=== PATIENT | female | born 1990 | race African-American/Black ===

== ENCOUNTER 2020-10-15 04:40 | Emergency (ER) | payer OTHER, SELFPAY ==
[2020-10-15 04:45] VITALS: BP 166/112; PULSE 91; RESP 20; TEMP 36.5; O2SAT 95
--- NOTE | 2020-10-15 05:13 | ED.FEMALEGU ---
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 Patient states normally her periods are very consistent, lasting 6 to 7 days. Patient states that she has been bleeding more days than not for the last month. She notes that she is going through 3-4 tampons or pads per day. Patient states that maybe 10 days or so of the bleeding she has had very heavy bleeding. She denies any injuries or trauma. Patient denies any changes in control or other medications. Related Data Home Medications Medication Instructions Recorded Confirmed No Home Medications 09/03/19 09/03/19 Allergies Allergy/AdvReac Type Severity Reaction Status Date / Time No Known Allergies Allergy Verified 10/15/20 04:48 Review of Systems Review of Systems: Narrative: CONSTITUTIONAL: Denies fever, chills, or sweats. EYES: Denies visual changes, redness, or discharge. ENT: Denies rhinorrhea, congestion, sore throat, or otalgia. CARDIOVASCULAR: Denies chest pain, palpitations, or edema. RESPIRATORY: Denies cough or dyspnea. GASTROINTESTINAL: Denies abdominal pain, nausea, vomiting, or diarrhea. GENITOURINARY: Denies dysuria or hematuria. Endorses vaginal bleeding. SKIN: Denies rash or itching. MUSCULOSKELETAL: Denies back pain, joint pain, or myalgia. NEUROLOGIC: Denies headache, numbness, dizziness, or weakness. PSYCHIATRIC: Denies anxiety or depression. [facility] Past Medical History Medical History (Updated 10/15/20 @ 06:18 by Ghanshyam Crouch DO) Allergic rhinitis Elevated BP without diagnosis of hypertension Family History Family History Father Diabetes mellitus Hypertension Grandparent Hypertension Diabetes mellitus Social History Social History Smoking status: Never smoker Second hand tobacco smoke exposure: No Alcohol intake: current Drinks per week: 1 Substance use: never Substance use type: does not use Gender identity (if verbalized by the patient): Female Spiritual care concerns: No Agree to blood products: Yes Exam Narrative: Exam Narrative: GENERAL: Well-appearing, well-nourished, and in no acute distress. HEAD: Normocephalic, atraumatic. EYES: PERRLA and EOMI. ENT: Nares clear, no rhinorrhea or epistaxis. Mucous membranes moist. Oropharynx without tonsillar hypertrophy exudate or other lesions. Bilateral TMs pearly allred nonbulging NECK: Supple. No adenopathy or masses. No carotid bruits or JVD CHEST: Clear to auscultation. No respiratory distress. No wheezes rales or rhonchi HEART: Regular rate and rhythm. No murmur heard. Normal peripheral pulses. ABDOMEN: Soft, nontender, nondistended, normal active bowel sounds. EXTREMITIES: Normal range of motion. No edema. SKIN: Warm, dry, no rash. NEURO: No focal deficits. Alert and oriented x3. PSYCH: Normal mood and affect. Course Vital Signs Vital signs: Vital Signs Temperature 36.5 C 10/15/20 04:45 Pulse Rate 91 10/15/20 04:45 Respiratory Rate 20 10/15/20 04:45 Blood Pressure 166/112 H 10/15/20 04:45 Pulse Oximetry 95 10/15/20 04:45 Temperature 36.5 C 10/15/20 04:45 Pulse Rate 91 10/15/20 04:45 Respiratory Rate 20 10/15/20 04:45 Blood Pressure 166/112 H 10/15/20 04:45 Pulse Oximetry 95 10/15/20 04:45 MDM - Female Genitourinary MDM Narrative Medical decision making narrative: In brief this 30-year-old female came into the emergency department with complaints of vaginal bleeding x1 month. Patient's vital signs were reviewed and reassuring. She is a little hypertensive. Address this
[2020-10-15 05:25] LABS: Basophils Absolute Auto 0.1 K/mm3 (0.0-0.1); Basophils Percent Auto 0.6 % (0.2-1.2); Eosinophils Absolute Auto 0.4 K/mm3 (0-0.3); Eosinophils Percent Auto 4.4 % (0-4.4); Hemoglobin 11.3 g/dL (12.0-15.0); Immature Granulocyte Absolute 0.03 K/mm3 (0.00-0.031); Immature Granulocyte Percent A 0.3 % (0-0.5); Lymphocytes Absolute Auto 2.78 K/mm3 (0.9-3.2); Lymphocytes Percent Auto 28.1 % (18.3-44.2); Mean Corpuscular HGB Conc 32.3 g/dl (32-36); Mean Corpuscular Hemoglobin 26.1 pg (26-34); Mean Corpuscular Volume 80.8 fl (80-100); Mean Platelet Volume 9.2 fl (7.4-10.4); Monocytes Absolute Auto 0.6 K/mm3 (0.1-0.6); Neutrophils Percent Auto 60.6 % (45.5-73.1); Platelet Count Result 343 k/mm3 (150-375); Red Blood Count 4.33 M/mm3 (4.2-5.4); Red Cell Distribution Width 14.3 % (11.5-14.5); White Blood Count 9.9 K/mm3 (4.5-10.0)
[2020-10-15 05:57] LABS: Anion Gap 7 mmol/L (8-16); Blood Urea Nitrogen 15 mg/dL (7-17); Calcium 8.8 mg/dL (8.4-10.2); Carbon Dioxide 26 mmol/L (22-30); Chloride 103 mmol/L (98-107); Estimated Glomerular Filt Rate > 60; Glucose 308 mg/dL (65-105); Potassium 4.3 mmol/L (3.4-5.0); Sodium 136 mmol/L (137-145)
[2020-10-15 06:05] LABS: Beta HCG Quantitative < 2.39 mIU/ML
== END 2020-10-15 06:24 | disposition home or self-care (01) ==
PROVIDERS: Emergency Provider Emergency Medicine; PCP Family Medicine
DX: N93.9 Abnormal uterine and vaginal bleeding, unspecified (principal); R03.0 Elevated blood-pressure reading, without diagnosis of hypertension
CPT/HCPCS: 36415; 80048; 84702; 85025; 99283

== ENCOUNTER 2021-01-12 14:17 | Outpatient (CLI) | payer OTHER, SELFPAY ==
[2021-01-12 15:12] LABS: Anion Gap 6 mmol/L (8-16); Blood Urea Nitrogen 13 mg/dL (7-17); Calcium 8.8 mg/dL (8.4-10.2); Carbon Dioxide 28 mmol/L (22-30); Chloride 108 mmol/L (98-107); Estimated Glomerular Filt Rate > 60; Glucose 106 mg/dL (65-105); Potassium 4.3 mmol/L (3.4-5.0); Sodium 142 mmol/L (137-145)
== END 2021-01-12 14:18 | disposition home or self-care (01) ==
LOC: ANHSURGERY 14:20
PROVIDERS: Anesthesiology; PCP Family Medicine; Visit Provider Obstetrics & Gynecology
DX: Z01.812 Encounter for preprocedural laboratory examination (principal); E11.9 Type 2 diabetes mellitus without complications
CPT/HCPCS: 36415; 80048

== ENCOUNTER → 2021-01-16 03:31 | Outpatient (CLI) | payer OTHER, SELFPAY ==
[2021-01-16 19:46] LABS: SARS-CoV-2 RNA PCR Negative
== END ==
PROVIDERS: PCP Family Medicine; Visit Provider Obstetrics & Gynecology
DX: Z01.812 Encounter for preprocedural laboratory examination (principal); Z20.822 Contact with and (suspected) exposure to COVID-19
CPT/HCPCS: C9803; U0003; U0005

== ENCOUNTER 2021-01-20 01:21 | Day surgery (SDC) | payer OTHER, SELFPAY ==
[2021-01-11 14:26] VITALS: BMI 55.9
[2021-01-20] VITALS (7 sets, daily range): BP systolic 128–148; BP diastolic 91–109; PULSE 86–102; RESP 14–24; TEMP 36.1–36.6; O2SAT 99–100
--- NOTE | 2021-01-20 06:27 | P.PNAN_ITS ---
Anes - Initial Pre Proc Eval Procedure: Operation Date: 01/20/21 07:30 Proposed Procedures p Hysteroscopy Dilation and Curettage - Hope Pacheco MD Date/Time: 01/20/21 06:27 Surgeon: Hope Pacheco MD Pre Op Diagnosis: abnormal uterine bleeding Patient Data Age: 30 Gender: F Height: 5 ft 7 in Weight: 162 kg Allergies Allergy/AdvReac Type Severity Reaction Status Date / Time No Known Allergies Allergy Verified 01/11/21 14:08 Home Medications Medication Instructions Recorded Confirmed Type sitagliptin 100 mg-metformin ER 1 tablet PO DAILY #90 tablet 12/08/20 01/11/21 Rx 1,000 mg tablet,extended [id number] mp diphenhydramine HCl [Benadryl] 25 mg PO Q6H PRN 01/11/21 01/11/21 History Patient hx anesthesia problems: none Family hx anesthesia problems: none [facility] Past Medical History Medical History Allergic rhinitis Diabetes Elevated BP without diagnosis of hypertension Family History Family History Father Diabetes mellitus Hypertension Grandparent Hypertension Diabetes mellitus Social History Social History Smoking status: Never smoker Second hand tobacco smoke exposure: No Alcohol intake: current Drinks per week: 1 Substance use: never Substance use type: does not use Living arrangements: with family Gender identity (if verbalized by the patient): Female Spiritual care concerns: No Agree to blood products: Yes Anes - Eval Final PreProcedure Day of Procedure 01/20/21 06:27 Patient weight: morbidly obese Heart: regular rate and rhythm Lungs: clear to auscultation Airway: Mallampati scale class 1 Neurological: alert and oriented Last oral intake: >/= 8 hours ASA classification: III Emergent: no Anesthetic plan: proceed Anesthesia type and monitoring: general GIVS and standard monitoring Informed Consent: The patient's anesthetic plan and its attendant risks and benefits were discussed with the patient/family/POA. Questions were solicited and answers provided to the satisfaction of the patient/family/POA.
[2021-01-20] MEDS: ACETAMINOPHEN 500 MG TABLET 1000 MG PO (06:45)
[2021-01-20] MEDS: LACTATED RINGERS 1,000 ML 30 ML IV CONT (06:46)
[2021-01-20 06:55] LABS: Glucose Point of Care 98 mg/dl (65-105)
--- NOTE | 2021-01-20 07:15 | WPDHPUPDATE1 ---
History and Physical Update Update Date/Time: 01/20/21 07:15 History and Physical has been reviewed, including an updated exam of the patient. There are NO changes in the patient's condition. Risks, benefits, and alternatives have been discussed and questions answered. Patient agrees to proceed with procedure.
--- NOTE | 2021-01-20 07:22 | PM.IMHP ---
H&P: HPI History of Present Illness Date/Time: 01/20/21 07:22 this patient is a 30-year-old female with longstanding anovulatory bleeding. She needs endometrial sampling. We have agreed to perform hysteroscopy D&C. I have explained the procedure to the patient in detail. She understands there is risk. She understands that injuries may occur that result in hospitalization, more surgery, severe illness. She understands there is risk of hemorrhage and infection. Chief Complaint: Vaginal bleeding Review of Systems Constitutional: Constitutional: Reports no additional constitutional complaints, Denies fatigue, Denies headache(s), Denies lethargy and Denies weakness Eyes: Eyes: Reports no additional eye complaints, Denies blurry vision and Denies photophobia ENT: Reports as per HPI, Denies headache(s) and Denies neck pain Cardiovascular: Cardiovascular: Denies chest pain, Denies diaphoresis, Denies leg edema, Denies palpitations and Denies dyspnea Respiratory: Respiratory: Denies hemoptysis, Denies dyspnea and Denies wheezing Gastrointestinal: Gastrointestinal: Denies abdominal pain, Denies melena, Denies bloating, Denies hematochezia, Denies nausea and Denies vomiting Genitourinary: Genitourinary: Reports no additional female genitourinary complaints Musculoskeletal: Musculoskeletal: Denies joint swelling, Denies neck pain, Denies numbness and Denies stiffness Neurologic: Denies Abnormal speech present, Denies confusion, Denies headache(s), Denies numbness and Denies weakness Psychiatric: Psychiatric: Denies anxiety, Denies confusion, Denies depression, Denies homicidal ideation and Denies suicidal ideation Endocrine: Endocrine: Denies fatigue and Denies palpitations Allergic/Immunologic: Allergic/Immunologic: Denies wheezing PMF Past Medical History Medical History Allergic rhinitis Diabetes Elevated BP without diagnosis of hypertension Family History Family History Father Diabetes mellitus Hypertension Grandparent Hypertension Diabetes mellitus Social History Social History Smoking status: Never smoker Second hand tobacco smoke exposure: No Alcohol intake: current Drinks per week: 1 Substance use: never Substance use type: does not use Living arrangements: with family Gender identity (if verbalized by the patient): Female Spiritual care concerns: No Agree to blood products: Yes Meds Home Medications and Allergies Home Medications Medication Instructions Recorded Confirmed Type sitagliptin 100 mg-metformin ER 1 tablet PO DAILY #90 tablet 12/08/20 01/11/21 Rx 1,000 mg tablet,extended [id number] mp diphenhydramine HCl [Benadryl] 25 mg PO Q6H PRN 01/11/21 01/11/21 History Allergies Allergy/AdvReac Type Severity Reaction Status Date / Time No Known Allergies Allergy Verified 01/11/21 14:08 Exam Const: General: healthy appearing, comfortable and no acute distress; No confusion Orientation/consciousness: No confusion Eyes: Direct Ophthalmoscopy: No photophobia Resp: Auscultation: clear to auscultation bilaterally, no rales, no rhonchi and no wheezes Cardio: Rate: regular rate Heart sounds: no click, no murmurs and no rubs GI: Inspection: non-distended GI Palp: No abdominal tenderness Auscultation: normal bowel sounds Neuro: General: No confusion Speech: No Abnormal speech present Extrem: General: normal to inspection, no pedal edema and no calf tenderness Assessment and Plan Assessment and plan (1) Abnormal uterine bleeding: Code(s): N93.9 - Abnormal uterine and vaginal bleeding, unspecified Status: Acute Assessment and Plan: This patient is a 30-year-old female with longstanding abnormal uterine bleeding who needs endometrial sampling. We have agreed to perform hyste
--- NOTE | 2021-01-20 08:26 | PM.PROC ---
Procedure Note - Detailed Date of procedure: 01/20/21 Pre-op diagnosis: abnormal uterine bleeding Abnormal uterine bleeding Post-op diagnosis: same Procedure performed: Hysteroscopy D&C Description of procedure: The patient was taken the operating room. She was prepped and draped in the dorsal lithotomy position after induction of mac anesthesia. A speculum was placed in the vagina. The cervix grasped with a tenaculum. The cervix was injected at 3 and 9:00 a.m. with 1% lidocaine. Cervix was dilated up to 1 cm. The hysteroscope was inserted the intrauterine cavity and the above findings were noted. A medium-size curette was then used to curettage all surfaces within the endometrial cavity. The endometrial curettings were collected on a Telfa. There were submitted to the pathology department. Hysteroscope was reinserted the intrauterine cavity to re-examine the endometrial surfaces. The hysteroscope was withdrawn. The tenaculum was removed. The speculum was removed. The patient tolerated the procedure well. She was taken recovery room stable condition. Sponge lap needle counts were correct x2. Anesthesia: MAC Surgeon: Hope Pacheco MD Estimated blood loss (mL): 75 Drains: No Packing: No Pathology: yes Complications: No immediate complications Condition: stable Disposition: PACU Findings: There was marked thickening of the endometrium. There was normal appearing vulva vagina and cervix.
[2021-01-20 08:32] LABS: Glucose Point of Care 115 mg/dl (65-105)
== END 2021-01-20 09:35 | disposition home or self-care (01) ==
PROVIDERS: PCP Family Medicine; Visit Provider Obstetrics & Gynecology
PROC: 0U5B8ZZ Destruction of Endometrium, Via Natural or Artificial Opening Endoscopic (ICD-10-PCS; CPT 58563; principal; 2021-01-20 07:30)
DX: N93.9 Abnormal uterine and vaginal bleeding, unspecified (principal); N84.0 Polyp of corpus uteri; E11.9 Type 2 diabetes mellitus without complications; Z79.84 Long term (current) use of oral hypoglycemic drugs; E66.01 Morbid (severe) obesity due to excess calories; Z68.43 Body mass index [BMI] 50.0-59.9, adult
CPT/HCPCS: 58558; 36415; 80048; 82948; 88305; A9270; C9803; J1100; J2250; J2405; J2704; J3010; J7030; J7120; U0003; U0005

== ENCOUNTER 2022-06-01 09:09 | Observation (INO) | payer OTHER, SELFPAY ==
[2022-06-01] VITALS (16 sets, daily range): BP systolic 137–190; BP diastolic 53–115; PULSE 90–109; RESP 14–20; TEMP 35.6–37; O2SAT 98–100
--- NOTE | ~2022-06-01 | US_ITS ---
EXAMINATION: US transvaginal DATE: 06/01/2022 16:36 INDICATION: Vaginal bleeding TECHNIQUE: Multiple endovaginal sonographic images of the pelvis were obtained. COMPARISON: None. FINDINGS: The uterus measures 13.2 x 8.1 x 11.1 cm. There is a 6.5 x 5.8 x 6.2 cm mass of the uterus with the appearance of an intramural fibroid. The endometrial complex measures 5 mm. The ovaries are not visualized however no adnexal abnormality is seen. There is no free fluid in the pelvis. IMPRESSION: 1. 6.5 cm uterine fibroid. Reviewed, dictated and finalized at location A. IMPRESSION: 1. 6.5 cm uterine fibroid.
[2022-06-01 09:34] LABS: Hematocrit 24.9 % (37.0-47.0); Mean Corpuscular HGB Conc 25.3 g/dl (32-36); Mean Corpuscular Hemoglobin 14.1 pg (26-34); Mean Corpuscular Volume 55.6 fl (80-100); Mean Platelet Volume 7.9 fl (7.4-10.4); Platelet Count Result 447 k/mm3 (150-375); Red Blood Count 4.48 M/mm3 (4.2-5.4); Red Cell Distribution Width 22.4 % (11.5-14.5); White Blood Count 8.3 K/mm3 (4.5-10.0)
[2022-06-01 09:37] LABS: Hemoglobin 6.3 g/dL (12.0-15.0)
[2022-06-01 09:46] LABS: Partial Thromboplastin Time 26.4 SECONDS (22.3-36.8)
[2022-06-01 09:52] LABS: Alanine Aminotransferase 13 U/L (6-35); Albumin Level 4.1 g/dL (3.5-5.1); Alkaline Phosphatase 78 U/L (38-126); Anion Gap 11 mmol/L (8-16); Aspartate Amino Transferase 31 U/L (14-36); Bilirubin,Total 0.3 mg/dL (0.2-1.3); Blood Urea Nitrogen 12 mg/dL (7-17); Calcium 8.9 mg/dL (8.4-10.2); Carbon Dioxide 21 mmol/L (22-30); Chloride 106 mmol/L (98-107); Estimated CRCL calculation 156 ml/min; Estimated Glomerular Filt Rate > 60; Glucose 143 mg/dL (65-110); Potassium 4.5 mmol/L (3.4-5.0); Sodium 138 mmol/L (137-145)
--- NOTE | 2022-06-01 09:59 | ED.RECABL ---
HPI - Recheck/Abnormal Lab/Rx General Chief Complaint: Recheck/Abnormal Lab/Rx Stated Complaint: low hgb 6.0 - labs drawn yesterday Time Seen by Provider: 06/01/22 09:14 Source: patient and RN notes reviewed Mode of arrival: ambulatory Limitations: no limitations History of Present Illness HPI narrative: This is a 32 year old female with history of Diabetes mellitus who presents for evaluation of a low hemoglobin. Patient had routine labs drawn yesterday to evaluate her diabetes, and she was told today her hemoglobin was 6. She denies history of anemia or blood transfusion. She has irregular menstrual cycle and she denies heavy vaginal bleeding. She denies chest pain, sob, dizziness, fatigue or weakness. Related Data Allergies Allergy/AdvReac Type Severity Reaction Status Date / Time No Known Allergies Allergy Verified 06/01/22 14:39 Review of Systems Review of Systems: All systems reviewed & are unremarkable except as noted in HPI and below Constitutional: Constitutional: Denies chills, Denies fatigue, Denies fever(s) and Denies weakness Cardiovascular: Cardiovascular: Denies chest pain and Denies rapid heart rate Respiratory: Respiratory: Denies cough Gastrointestinal: Gastrointestinal: Denies abdominal pain, Denies bloating, Denies constipation and Denies heartburn [facility] Past Medical History Medical History Allergic rhinitis Diabetes Elevated BP without diagnosis of hypertension History of PCOS Menorrhagia with regular cycle Uterine fibroid Surgical History Surgical History H/O cervical biopsy H/O dilation and curettage Family History Family History Father Diabetes mellitus Hypertension Grandparent Hypertension Diabetes mellitus Social History Social History (Updated 06/01/22 @ 16:00 by Pham Strickland NP) Social History: The patient is and lives with her . They have no children. She denies any alcohol marijuana or illicit drugs. Her is a durable power consumer attorney for healthcare. She works for [employer]. Code status full code Smoking status: Never smoker Second hand tobacco smoke exposure: No Alcohol intake: current Drinks per week: 1 Alcohol use details: wine Substance use: never Substance use type: does not use Gender identity (if verbalized by the patient): Female Sexual Orientation (if Verbalized by the Patient): Straight or Heterosexual Spiritual care concerns: No Agree to blood products: Yes Exam Const: General: no acute distress and alert Nutritional Appearance: well nourished and obese Orientation/consciousness: patient oriented x3 HENMT: Head: normal to inspection Neck: Neck: normal visual inspection Chest: Chest palpation & inspection: normal inspection of the chest Resp: Effort & Inspection: normal respiratory effort Auscultation: clear to auscultation bilaterally Cardio: Rate: regular rate Rhythm: regular rhythm Heart sounds: no murmurs GI: GI Palp: Yes Soft to palpation, No Tenderness to palpation present (GI), No Guarding due to palpation present (GI) and No Rigid due to palpation Auscultation: normal bowel sounds Skin: General skin exam: normal color Rashes: no rashes Wounds: no wounds Neuro: General: patient oriented x3, moves all extremities and CN's II-XI intact bilaterally Cranial nerves: Yes Nystagmus not present Extrem: General: normal to inspection Psych: Mental Status: mental status grossly normal Affect: normal affect Attitude: cooperative Course Reevaluation(s) Reevaluation #1: Patient found to have severe anemia. She is not symptomatic and she is not on her cycle right now. She will likely start in a few days. Will admit for transfusion . I have discussed with DR. Thakkar who accepts patient to service. Date:
[2022-06-01 10:13] LABS: Iron 20 ug/dL (37-170)
[2022-06-01 10:15] LABS: Anisocytosis 2+ (NORMAL); Lymphocytes Absolute Manual 2.07 K/mm3 (1.1-4.5); Monocytes Absolute Manual 0.33 K/mm3 (0.1-0.90); Monocytes Percent Manual 4 % (3-9); Neutrophils Percent Manual 71 % (46-73); Ovalocytes 2+ (NORMAL); Platelet Estimate Adequate (Adequate); Tear Drop Cells 1+ (NORMAL); Total Cells Counted 100
[2022-06-01 10:16] LABS: Hypochromasia 3+ (NORMAL)
[2022-06-01 10:17] LABS: Poikilocytosis 1+ (NORMAL); Schistocytes None Seen (NORMAL)
[2022-06-01 10:22] LABS: Percent Iron Saturation 4 % (20-50)
[2022-06-01 10:57] LABS: Folic Acid 6.7 ng/mL (2.76->20)
[2022-06-01] MEDS: SODIUM CHLORIDE 0.9% IV 250 ML 30 ML IV CONT ×2 (12:06→22:29)
[2022-06-01] MEDS: TUBING, BLOOD PLUM PUMP TUBING 1 EACH XX (13:16)
--- NOTE | 2022-06-01 13:51 | PM.IMHP ---
H&P: HPI History of Present Illness Date/Time: 06/01/22 13:51 Chief Complaint: Low labs low hemoglobin Narrative: This is a 32-year-old female patient with a history of PCOS and diabetes. The patient has a history of having heavy menses and sees Dr. Pacheco for her OBGYN. Patient had routine labs drawn yesterday to evaluate her diabetes and was told that her hemoglobin was 6 yesterday. She denies any anemia or blood transfusion the past she has irregular menstrual cycle and has had a D&C in the past. She has also had some uterine fibroids. She has also had uterine polyps in the past. She denies any shortness of breath or heavy bleeding at this time. Her last menses was 32 days ago. She has not taken a test. She has not noticed any blood in her stool. Her H&H is 6.3 and 24.9. MCV is 55.6. MCH is 15.1. MCHC is 25.3. RDW is 22.4. Platelet count is 447. Accu-Chek 143. TIBC 522. Percentage of saturation was 4. 1 unit of packed red blood cells was ordered for the patient. The patient is being admitted for observation status on 06/01/2022. Review of Systems Review of Systems: See HPI All systems reviewed & are unremarkable except as noted in HPI and below Constitutional: Constitutional: Reports as per HPI and Reports no additional constitutional complaints Eyes: Eyes: Reports as per HPI and Reports no additional eye complaints ENT: Reports system reviewed and no additional complaints, except as documented and Reports Normal hearing present Cardiovascular: Cardiovascular: Reports no additional cardiovascular complaints Respiratory: Respiratory: Reports no additional respiratory complaints and Reports no additional respiratory complaints Gastrointestinal: Gastrointestinal: Reports as per HPI and Reports no additional gastrointestinal complaints Musculoskeletal: Musculoskeletal: Reports no additional musculoskeletal complaints Integumentary/Breasts: Skin/Breast: Reports system reviewed and no additional complaints, except as docu and Reports as per HPI Neurologic: Reports system reviewed and no additional complaints, except as documented, Reports as per HPI and Reports Normal hearing present Psychiatric: Psychiatric: Reports no additional psychiatric complaints and Reports as per HPI Endocrine: Endocrine: Reports no additional endocrine complaints Hematologic/Lymphatic: Hematologic/Lymphatic: Reports no additional hematologic/lymphatic complaints Allergic/Immunologic: Allergic/Immunologic: Reports no additional allergic/immunologic complaints [facility] Past Medical History Medical History Allergic rhinitis Diabetes Elevated BP without diagnosis of hypertension History of PCOS Menorrhagia with regular cycle Uterine fibroid Surgical History Surgical History H/O cervical biopsy H/O dilation and curettage Family History Family History Father Diabetes mellitus Hypertension Grandparent Hypertension Diabetes mellitus Social History Social History (Updated 06/01/22 @ 16:00 by Pham Strickland NP) Social History: The patient is and lives with her . They have no children. She denies any alcohol marijuana or illicit drugs. Her is a durable power city attorney for healthcare. She works for [employer]. Code status full code Smoking status: Never smoker Second hand tobacco smoke exposure: No Alcohol intake: current Drinks per week: 1 Alcohol use details: wine Substance use: never Substance use type: does not use Gender identity (if verbalized by the patient): Female Sexual Orientation (if Verbalized by the Patient): Straight or Heterosexual Spiritual care concerns: No Agree to blood products: Yes Meds Home Medications and Allergies Home Medications Medication Instructions Recorde
--- NOTE | 2022-06-01 14:38 | ADMGEN ---
This patient, Rosemary Corado, was admitted to [facility] Surg Room 301-01. Patient/family oriented to hospital policies and general routines including ID bracelet, bed and alarms, visiting hours, pain management, procedures, bathroom and other care routines, personal items, smoking policy, room service/diet, and visiting hours. Information on how to activate the Rapid Response Team has been discussed. Patient/Family are encouraged to report perceived risks to care and to ask questions if they do not understand what they are told or what they should do.
[2022-06-01 16:46] LABS: Glucose Point of Care 119 mg/dl (65-105)
[2022-06-01 17:06] LABS: Hemoglobin 6.9 g/dL (12.0-15.0)
[2022-06-01] MEDS: POLYSACCHARIDE IRON COMPLEX 150 MG CAPSULE PO (17:45)
[2022-06-01] MEDS: IRON SUCROSE COMPLEX 100 MG in SODIUM CHLORIDE 0.9% IV 50 ML 220 MG IVPB (17:46)
--- NOTE | 2022-06-01 18:14 | PHAR ---
PT'S HOME MED JANUMET XR 100/1000 MG VERIFIED BY PHARMACY
[2022-06-01 18:49] LABS: Pregnancy On Board Control Positive; Urine Pregnancy Test Negative
[2022-06-01 20:55] LABS: Glucose Point of Care 112 mg/dl (65-105)
[2022-06-01 22:21] LABS: Hematocrit 26.9 % (37.0-47.0); Hemoglobin 7.2 g/dL (12.0-15.0)
[2022-06-02 00:33] VITALS: BP 148/92; PULSE 94; RESP 14; TEMP 36.2; O2SAT 98
[2022-06-02 01:09] VITALS: BP 148/92; PULSE 90; RESP 15; TEMP 36.3; O2SAT 99
[2022-06-02 06:00] VITALS: BP 132/87; PULSE 89; RESP 18; TEMP 35.8; O2SAT 100
[2022-06-02 06:43] LABS: Basophils Absolute Auto 0.1 K/mm3 (0.0-0.1); Basophils Percent Auto 0.7 % (0.2-1.2); Eosinophils Absolute Auto 0.2 K/mm3 (0-0.3); Eosinophils Percent Auto 2.4 % (0-4.4); Hematocrit 28.6 % (37.0-47.0); Hemoglobin 7.6 g/dL (12.0-15.0); Immature Granulocyte Absolute 0.03 K/mm3 (0.00-0.031); Immature Granulocyte Percent A 0.3 % (0-0.5); Lymphocytes Percent Auto 25.3 % (18.3-44.2); Mean Corpuscular HGB Conc 26.6 g/dl (32-36); Mean Corpuscular Hemoglobin 15.6 pg (26-34); Mean Corpuscular Volume 58.8 fl (80-100); Mean Platelet Volume 8.4 fl (7.4-10.4); Monocytes Absolute Auto 0.7 K/mm3 (0.1-0.6); Monocytes Percent Auto 7.8 % (2.6-8.5); Neutrophils Absolute Auto 5.8 K/mm3 (1.3-6.7); Neutrophils Percent Auto 63.5 % (45.5-73.1); Platelet Count Result 473 k/mm3 (150-375); Red Blood Count 4.86 M/mm3 (4.2-5.4); Red Cell Distribution Width 26.6 % (11.5-14.5); White Blood Count 9.1 K/mm3 (4.5-10.0)
[2022-06-02 07:12] LABS: Alanine Aminotransferase 12 U/L (6-35); Albumin Level 4.1 g/dL (3.5-5.1); Alkaline Phosphatase 71 U/L (38-126); Anion Gap 10 mmol/L (8-16); Bilirubin,Total 0.5 mg/dL (0.2-1.3); Blood Urea Nitrogen 13 mg/dL (7-17); Calcium 9.1 mg/dL (8.4-10.2); Carbon Dioxide 22 mmol/L (22-30); Chloride 106 mmol/L (98-107); Estimated CRCL calculation 136 ml/min; Estimated Glomerular Filt Rate > 60; Glucose 111 mg/dL (65-110); Potassium 4.5 mmol/L (3.4-5.0); Sodium 138 mmol/L (137-145)
[2022-06-02 07:17] LABS: Anisocytosis 1+ (NORMAL); Aspartate Amino Transferase 35 U/L (14-36); Hypochromasia 2+ (NORMAL); Polychromasia 1+ (NORMAL); Target Cells 1+ (NORMAL)
[2022-06-02 07:18] LABS: Ovalocytes 2+ (NORMAL); Schistocytes None Seen (NORMAL)
[2022-06-02 08:00] VITALS: PULSE 89; RESP 18; O2SAT 100
[2022-06-02 08:00] LABS: Glucose Point of Care 117 mg/dl (65-105)
[2022-06-02] MEDS: POLYSACCHARIDE IRON COMPLEX 150 MG CAPSULE PO (08:32)
[2022-06-02 08:55] LABS: Hemoglobin A1C 6.1 % (<5.7)
[2022-06-02 09:57] LABS: Immunochemical Fecal Occult Bl Negative (N)
[2022-06-02 09:58] LABS: IFOB Positive Control Positive
[2022-06-02 11:47] LABS: Glucose Point of Care 132 mg/dl (65-105)
[2022-06-02 12:49] LABS: Hematocrit 27.4 % (37.0-47.0); Hemoglobin 7.4 g/dL (12.0-15.0)
[2022-06-02 14:00] VITALS: BP 131/78; PULSE 86; RESP 18; TEMP 36.4; O2SAT 100
--- NOTE | 2022-06-02 14:33 | PM.DS ---
DS: Admitting Diagnosis Discharge Date 06/02/2022 Admitting Diagnosis Anemia DS: Discharge Diagnosis Discharge Diagnosis (1) Anemia: Code(s): D64.9 - Anemia, unspecified Status: Acute Assessment and Plan: Patient directed to ED after outpatient labs revealed hemoglobin of 6.0. Hemoglobin was 6.3 on presentation and patient received 2 units packed RBCs. H&H stabilized following transfusion. Also received IV iron infusion and will continue p.o. iron supplementation following discharge. Recheck H&H in 1 week with results to PCP. (2) Abnormal uterine bleeding: Code(s): N93.9 - Abnormal uterine and vaginal bleeding, unspecified Status: Acute Assessment and Plan: Patient reports heavy menstrual bleeding. She does have history of uterine fibroids and D&C. No active vaginal bleeding during admission. test negative. Transvaginal ultrasound shows 6.5 cm uterine fibroid. She will follow-up with her OBGYN Dr. Pacheco as an outpatient for further evaluation of fibroid and heavy menstrual bleeding (3) Diabetes: Code(s): E11.9 - Type 2 diabetes mellitus without complications Status: Acute Assessment and Plan: A1c is 6.1. Continue home janumet. DS: Summary Hospital Course Hospital Course: Date of admission: 06/01/2022 Date of discharge: 06/02/2022 Rosemary Corado is a 32-year-old female with a history of menorrhagia, uterine fibroid, PCOS, and type 2 diabetes mellitus who presented to the emergency department on 06/01/2022 at the instruction of her primary care provider when she was noted to have a hemoglobin of 6.0 on outpatient labs. On presentation to the ED, her vital signs were stable, hemoglobin 6.9, hematocrit 26.0, iron 20, TIBC 522, % saturation 4. She was admitted to the hospitalist service for further evaluation and management. Please see above for further details. She was transfused 2 units packed RBCs. H&H remained stable following transfusion. Patient does endorse heavy menstrual cycles which is the most likely etiology for her iron deficiency anemia. She did have a transvaginal ultrasound during admission which showed a uterine fibroid. She will follow-up with her delivery clerk regarding abnormal uterine bleeding as an outpatient. She is not vegetarian, but eats very little red meat or other iron rich foods. Stool was negative for occult blood. Patient denies any other bleeding including hematuria, melena, hematochezia, epistaxis. She was started on oral iron supplementation and given information regarding iron rich diet. She will have a repeat H&H as an outpatient in 1 week with results to PCP. She remained asymptomatic, she was feeling at her baseline state of health and was eager for discharge home. Given overall improvement, she was determined to no longer require inpatient care and was discharged in hemodynamically stable condition on 06/02/2022. Time Spent with Patient Time attestation: Total time spent providing and/or coordinating discharge services: 45 minutes Exam Narrative: General: Obese, well-appearing 32-year-old female, sitting up in bed, comfortable, NARD Neuro: awake, alert and oriented x4, speech clear, no focal neuro deficits noted HEENMT: normocephalic, atraumatic, EOMI, sclerae anicteric, moist oral mucosa Respiratory: clear to auscultation bilaterally, nonlabored breathing Cardio: regular rate, regular rhythm with S1-S2 Abdomen: nondistended, normoactive bowel sounds, soft, nontender to palpation Extremities: no edema, erythema, or tenderness to palpation Skin: no rashes or lesions, warm and dry Psych: appropriate mood and affect, judgment and insight intact DS: Data Data Completed and Pending Labs on day of discharge: Labs from last 24 hours 06/02/22 06/02/22 06/02/22 11:30 09:09 09:08 WBC RBC Hgb 7.4 L Hct 27.4 L MCV MCH MCHC RDW Plt Count MPV Immature Gran % (Auto)
== END 2022-06-02 15:20 | disposition home or self-care (01) ==
LOC: ANHED 09:26 → ANH3MEDSUR 17:40
PROVIDERS: Nurse Practitioner; Admitting Provider Family Medicine; Emergency Provider General Practice; PCP Physician Assistant Medical; Visit Provider Internal Medicine
DX: D64.9 Anemia, unspecified (principal); E11.9 Type 2 diabetes mellitus without complications; N93.9 Abnormal uterine and vaginal bleeding, unspecified; D25.1 Intramural leiomyoma of uterus; E66.9 Obesity, unspecified; Z68.43 Body mass index [BMI] 50.0-59.9, adult; F10.90 Alcohol use, unspecified, uncomplicated; Z79.84 Long term (current) use of oral hypoglycemic drugs
CPT/HCPCS: 36415; 36430; 76830; 80053; 81025; 82274; 82607; 82746; 82948; 83036; 83540; 83550; 85014; 85018; 85025; 85610; 85730; 86850; 86900; 86901; 86920; 96374; 99285; A9270; G0378; J1756; J7050; P9016

== ENCOUNTER 2022-06-16 13:36 | Outpatient (CLI) | payer OTHER, SELFPAY ==
[2022-06-16 13:53] LABS: Basophils Absolute Auto 0.1 K/mm3 (0.0-0.1); Basophils Percent Auto 0.8 % (0.2-1.2); Eosinophils Absolute Auto 0.3 K/mm3 (0-0.3); Eosinophils Percent Auto 3.8 % (0-4.4); Hematocrit 29.6 % (37.0-47.0); Immature Granulocyte Absolute 0.01 K/mm3 (0.00-0.031); Immature Granulocyte Percent A 0.2 % (0-0.5); Lymphocytes Absolute Auto 2.09 K/mm3 (0.9-3.2); Lymphocytes Percent Auto 31.4 % (18.3-44.2); Mean Platelet Volume 8.4 fl (7.4-10.4); Monocytes Absolute Auto 0.5 K/mm3 (0.1-0.6); Monocytes Percent Auto 7.7 % (2.6-8.5); Neutrophils Absolute Auto 3.8 K/mm3 (1.3-6.7); Neutrophils Percent Auto 56.1 % (45.5-73.1); Platelet Count Result 503 k/mm3 (150-375); Red Cell Distribution Width 30.5 % (11.5-14.5); White Blood Count 6.7 K/mm3 (4.5-10.0)
[2022-06-16 15:35] LABS: Anisocytosis 2+ (NORMAL)
[2022-06-16 15:42] LABS: Hypochromasia 2+ (NORMAL); Poikilocytosis 2+ (NORMAL); Schistocytes 1+ (NORMAL); Target Cells 1+ (NORMAL)
== END 2022-06-16 13:37 | disposition home or self-care (01) ==
LOC: ANHLAB 13:37
PROVIDERS: PCP Physician Assistant Medical; Visit Provider Physician Assistant
DX: D64.9 Anemia, unspecified (principal)
CPT/HCPCS: 36415; 85025

== ENCOUNTER 2023-01-19 09:48 | Outpatient (CLI) | payer OTHER, SELFPAY ==
--- NOTE | ~2023-01-19 | XR_ITS ---
EXAMINATION: XR hysterosalpingogram DATE: 01/19/2023 12:28 INDICATION: Infertility. TECHNIQUE: Fluoroscopy was performed by the radiologist during contrast infusion into the endometrial cavity of the uterus by the primary physician. Fluoroscopy exposure time was 1.4 minutes. The total number of images was 10. FINDINGS: The uterine cavity is normal in morphology. The fallopian tubes are normal in caliber. Ther e is normal free intraperitoneal spillage of contrast on either side. Venous intravasation is noted i n the uterus. IMPRESSION: 1. Normal hysterosalpingogram. Reviewed, dictated and finalized at location A.
[2023-01-19 10:37] LABS: Beta HCG Quantitative < 2.39 mIU/ML
--- NOTE | 2023-01-19 12:22 | W.PM.PROC2 ---
Procedure Note - Detailed Date of Procedure 01/19/23 Pre-op Diagnosis inferitlity/z01.89 Post-op Diagnosis Same Procedure Performed Hysterosalpingogram Surgeon Hope Pacheco MD Anesthesia None Indications unexplained infertility Findings normal hysterosalpingogram Description of Procedure the patient was placed on the fluoroscopy table. A speculum was placed in the vagina. Cervix was grasped with a tenaculum. The catheter was placed the uterine cavity and the bulb was inflated. The speculum was removed with the angiocath still placed in the intrauterine cavity. Dye was then removed. The catheter. Fluoroscopic images obtained this process. Patient experienced some moderate to severe discomfort. The balloon of the catheter was deflated and the catheter was removed while the images were being obtained. The procedure was terminated. Patient tolerated the procedure well. There were no complications. Estimated Blood Loss 0 Complications No immediate complications Condition Stable Disposition Other
== END 2023-01-19 09:49 | disposition home or self-care (01) ==
LOC: ANHIMG 09:51
PROVIDERS: PCP Physician Assistant Medical; Visit Provider Obstetrics & Gynecology
DX: Z01.89 Encounter for other specified special examinations (principal)
CPT/HCPCS: 36415; 58340; 74740; 84702; Q9966

== ENCOUNTER 2024-04-25 15:13 | Outpatient (CLI) | payer OTHER, SELFPAY ==
[2024-04-25 15:37] LABS: Basophils Percent Auto 0.5 % (0.2-1.2); Eosinophils Absolute Auto 0.2 K/mm3 (0-0.3); Eosinophils Percent Auto 3.1 % (0-4.4); Immature Granulocyte Absolute 0.02 K/mm3 (0.00-0.031); Immature Granulocyte Percent A 0.3 % (0-0.5); Lymphocytes Percent Auto 30.7 % (18.3-44.2); Mean Corpuscular HGB Conc 26.3 g/dl (32-36); Mean Corpuscular Volume 57.3 fl (80-100); Mean Platelet Volume 8.6 fl (7.4-10.4); Monocytes Absolute Auto 0.5 K/mm3 (0.1-0.6); Monocytes Percent Auto 6.8 % (2.6-8.5); Neutrophils Absolute Auto 4.4 K/mm3 (1.3-6.7); Neutrophils Percent Auto 58.6 % (45.5-73.1); Platelet Count Result 710 k/mm3 (150-375); Red Blood Count 4.19 M/mm3 (4.2-5.4); Red Cell Distribution Width 19.8 % (11.5-14.5); White Blood Count 7.5 K/mm3 (4.5-10.0)
[2024-04-25 15:38] LABS: Hemoglobin 6.3 g/dL (12.0-15.0)
[2024-04-25 15:43] LABS: Anisocytosis 2+; Hypochromasia 2+; Microcytosis 2+ (NORMAL); Ovalocytes 1+; Platelet Estimate Increased (Adequate); Schistocytes None Seen
[2024-04-25 15:44] LABS: Poikilocytosis 1+
[2024-04-25 16:28] LABS: Iron 17 ug/dL (37-170)
[2024-04-25 16:43] LABS: Percent Iron Saturation 4 % (20-50)
[2024-04-25 17:04] LABS: Alanine Aminotransferase 10 U/L (6-35); Albumin Level 3.9 g/dL (3.5-5.1); Alkaline Phosphatase 74 U/L (38-126); Anion Gap 9 mmol/L (4-12); Aspartate Amino Transferase 16 U/L (14-36); Bilirubin,Total 0.2 mg/dL (0.2-1.3); Blood Urea Nitrogen 8 mg/dL (7-17); Calcium 9.1 mg/dL (8.4-10.2); Carbon Dioxide 27 mmol/L (22-30); Chloride 102 mmol/L (98-107); Estimated Glomerular Filt Rate > 60; Ferritin 6.71 ng/mL (6.24-137); Glucose 99 mg/dL (65-110); Sodium 138 mmol/L (137-145)
[2024-04-25 17:59] LABS: Folic Acid 6.6 ng/mL (2.76->20)
[2024-05-03 12:18] LABS: Soluble Transferrin Receptor 8.23 mg/L (0.76-1.76)
== END 2024-04-25 15:14 | disposition home or self-care (01) ==
LOC: ANHLAB 15:15
PROVIDERS: PCP Physician Assistant Medical; Visit Provider Internal Medicine Hematology & Oncology
DX: D64.9 Anemia, unspecified (principal)
CPT/HCPCS: 36415; 80053; 82607; 82728; 82746; 83540; 83550; 84238; 85025

== ENCOUNTER 2024-04-26 08:29 | Outpatient (RCR) | payer OTHER, SELFPAY ==
[2024-04-26 09:28] LABS: Hematocrit 23.1 % (37.0-47.0)
[2024-04-26 09:32] LABS: Hemoglobin 6.1 g/dL (12.0-15.0)
[2024-04-26] MEDS: ACETAMINOPHEN 325 MG TABLET 650 MG PO (10:30)
[2024-04-26] MEDS: diphenhydrAMINE HCl CAP 25 MG CAPSULE PO (10:31)
[2024-04-26] MEDS: SODIUM CHLORIDE 0.9% IV 250 ML 30 ML IV CONT (10:32)
[2024-04-26 10:42] VITALS: BP 138/92; PULSE 94; RESP 16; TEMP 36.4; O2SAT 100
[2024-04-26 10:57] VITALS: BP 133/80; PULSE 93; RESP 16; TEMP 36.4; O2SAT 100
[2024-04-26 11:57] VITALS: BP 136/87; PULSE 86; RESP 16; TEMP 36.3; O2SAT 100
[2024-04-26 12:57] VITALS: BP 138/87; PULSE 85; RESP 16; TEMP 36.4; O2SAT 98
[2024-04-26 13:43] VITALS: BP 141/96; PULSE 89; RESP 16; TEMP 36.4; O2SAT 97
== END 2024-07-25 23:59 | disposition home or self-care (01) ==
LOC: ANHCPCTRAN 08:29
PROVIDERS: Visit Provider Internal Medicine Hematology & Oncology
DX: D64.9 Anemia, unspecified (principal)
CPT/HCPCS: 36415; 36430; 85014; 85018; 86850; 86900; 86901; 86923; A9270; J7050; P9016

== ENCOUNTER 2025-01-04 10:37 | Emergency (ER) | payer OTHER, SELFPAY ==
[2025-01-04] VITALS (9 sets, daily range): BP systolic 113–128; BP diastolic 70–76; PULSE 79–94; RESP 16–19; TEMP 36.6–36.8; O2SAT 99–100
--- OUTSIDE RECORDS SUMMARY | 2025-01-04 10:39 | XMS_ITS | Clinical Summary ---
Author Organization [facility] Virtual Care Address [address] [place] [address] Phone Care Team Providers Care Home Care Associate Name Role Phone Tess Nelson MD Primary Care Provider [phone] Allergies No known active allergies Medications No known medications Active Problems Problem Noted Date Diagnosed Date Fibroids, intramural 01/02/2025 Encounters Date Type Department Care Team Description 01/02/2025 1:20 PM CDT Telemedicine [facility] Reproductive Endocrinology [address] [place] [phone] Tess Coffey MD Intramural and submucous leiomyoma of uterus (Primary Dx) 12/25/[address] [facility] [address] [place] [address] Patsy Ponce MRI test results 12/24/2024 Patient Self-Triage [facility] [address] [place] [address] Mychart, Generic Provider 12/23/2024 7:13 PM CDT - 12/23/2024 11:59 PM CDT Hospital Encounter [facility] [address] [place] [phone] Fibroids Discharge Disposition: Discharge to home or self care 12/11/2024 Telephone [facility] Reproductive Endocrinology [address] [place] [phone] Estefanía Haskins/pauline to schedule surgery consult 12/10/2024 Orders Only [facility] Reproductive Endocrinology [address] [place] [phone] Tess Coffey MD Fibroids (Primary Dx) from Last 3 Months Social History Tobacco Use Types Packs/Day Years Used Date Smoking Tobacco: Never Assessed Comments Unknown Sex and Gender Information Value Date Recorded Sex Assigned at Not on file Legal Sex Female 3:14 PM CDT Gender Identity Not on file Sexual Orientation Not on file Last Filed Vital Signs Vital Sign Reading Time Taken Comments Blood Pressure - - Pulse - - Temperature - - Respiratory Rate - - Oxygen Saturation - - Inhaled Oxygen Concentration - - Weight 109.3 kg (241 lb) 12/23/2024 7:29 PM CDT Height 170.2 cm (5' 7 ) 12/23/2024 7:29 PM CDT Body Mass Index 37.75 12/23/2024 7:29 PM CDT Plan of Treatment Upcoming Encounters Date Type Department Care Team (Latest Contact Info) Description 01/06/2025 1:24 PM CDT Hospital Encounter [address] [address] 01/20/2025 7:30 AM CDT Hospital Encounter [facility] [address] [place] [phone] Tess Coffey MD [address] [place] [phone] 01/20/2025 7:30 AM CDT - 01/20/2025 11:30 AM CDT Surgery [facility] [address] [place] [phone] Tess Coffey MD [address] [place] [address] [id number] Robotic Assisted Laparoscopic Myomectomy with Chromopertubation Scheduled Procedures Name Priority Associated Diagnoses Date/Ti me XI ADHESIOLYSIS - LAPAROSCOP IC ROBOTIC Fibroids, intramural 01/20/2025 7:30 AM CDT Health Maintenance Due Date Last Done Comments Cervical Cancer Screening 1988 Depression Screening 1988 Hepatitis C Screening 1988 DTaP/Tdap/Td Vaccine (1 - Tdap) 1999 Varicella Vaccines (1 of 2 - 13+ 2-dose series) 2001 Hepatitis B Screening 2006 Regular Well Visit/Exam 18-64 2006 Covid-19 Vaccine (4 - 2023-2 5 season) 2024 09/16/2021, 12/01/2020, 11/03/2020 Influenza Vaccine (Season Ended) 2025 HPV Vaccines Aged Out No longer eligi ble based on patient's age to complete this topic Pneumococcal vaccine <65 Aged Out No longer eligible based on patient's age to complete this topic Procedures Procedure Name Priority Date/Time Associated Diagnosis Comments MRI PELVIS W WO CONTRAST Schedule Routine, Read Routine (OP Routine) 12/23/2024 8:18 PM CDT Fibroids from Last 3 Months Results * MRI Pelvis W WO Contrast (12/23/2024 8:18 PM CDT) Anatomical Region Laterality Modality Pelvis N/A Magnetic Resonan ce 12/24/2024 10:5 0 AM CDT Impressions 12/24/2024 2:44 PM CDT 1. Approximately 3 viable subserosal and intramural uterine fibroids as described above. The largest 8 cm fibroid is located in the anterior lower uterine segment, demonstrates central cystic degeneration, and exerts mass effect on the endometrial cavity and urinary bladder. No suspicious imaging features. 2. Findings consistent with uterine adenomyosis. Dictated by: Benito Mullen MD The radiology attending physician has personally reviewed this study, and had reviewed and/or edited this written report and agrees with it. Electronically signed by: Ashlee Hoff M.D. Narrative 12/24/2024 2:44 PM CDT EXAMINATION: MAGNETIC RESONANCE IMAGING OF THE PELVIS WITHOUT AND WITH CONTRAST HISTORY: Uterine fibroids. TECHNIQUE: MR imaging of the pelvis was performed prior to and following administration of intravenous gadolinium. Protocol: Uterine Fibroid Contrast: MultiHance 20 mL COMPARISON: None available FINDINGS: Uterus: Uterus is anteverted and enlarged. Small nabothian cyst is noted. Endometrium and myometrium: Endometrium is normal in appearance. Myometrium is diffusely thickened with internal T2 cystic areas, most prominent within the posterior uterine fundus with junctional zone measuring up to 3.7 cm (series 7 image 16). Fibroids: There are least 3 intramural intramural and subserosal uterine fibroids, all which demonstrate avid enhancement and are viable. No associated diffusion restriction or other suspicious features. * 8.0 x 6.8 x 7.5 cm fibroid in the anterior lower uterine segment has mild cystic degeneration centrally and is exerting mass effect on the endometrial cavity and superior bladder. * 1.7 x 2.0 x 2.4 cm fibroid along the anterior aspect of the mid uterus. * 2.1 x 2.5 x 1.9 cm fibroid in the posterior uterus just proximal to the fundus. Ovaries: Normal. No suspicious adnexal mass. Angiographic Findings: Normal symmetric vascular anatomy without dilated or hypertrophied gonadal or uterine arteries. Other findings: Urinary bladder is incompletely distended with moderate mass effect from adjacent fibroid. Procedure Note Ashlee Hoff MD - 12/24/2024 EXAMINATION: MAGNETIC RESONANCE IMAGING OF THE PELVIS WITHOUT AND WITH CONTRAST HISTORY: Uterine fibroids. TECHNIQUE: MR imaging of the pelvis was performed prior to and following administration of intravenous gadolinium. Protocol: Uterine Fibroid Contrast: MultiHance 20 mL COMPARISON: None available FINDINGS: Uterus: Uterus is anteverted and enlarged. Small nabothian cyst is noted. Endometrium and myometrium: Endometrium is normal in appearance. Myometrium is diffusely thickened with internal T2 cystic areas, most prominent within the posterior uterine fundus with junctional zone measuring up to 3.7 cm (series 7 image 16). Fibroids: There are least 3 intramural intramural and subserosal uterine fibroids, all which demonstrate avid enhancement and are viable. No associated diffusion restriction or other suspicious features. * 8.0 x 6.8 x 7.5 cm fibroid in the anterior lower uterine segment has mild cystic degeneration centrally and is exerting mass effect on the endometrial cavity and superior bladder. * 1.7 x 2.0 x 2.4 cm fibroid along the anterior aspect of the mid uterus. * 2.1 x 2.5 x 1.9 cm fibroid in the posterior uterus just proximal to the fundus. Ovaries: Normal. No suspicious adnexal mass. Angiographic Findings: Normal symmetric vascular anatomy without dilated or hypertrophied gonadal or uterine arteries. Other findings: Urinary bladder is incompletely distended with moderate mass effect from adjacent fibroid. IMPRESSION: 1. Approximately 3 viable subserosal and intramural uterine fibroids as described above. The largest 8 cm fibroid is located in the anterior lower uterine segment, demonstrates central cystic degeneration, and exerts mass effect on the endometrial cavity and urinary bladder. No suspicious imaging features. 2. Findings consistent with uterine adenomyosis. Dictated by: Benito Mullen MD The radiology attending physician has personally reviewed this study, and had reviewed and/or edited this written report and agrees with it. Electronically signed by: Ashlee Hoff M.D. Tess Coffey MD IMG MRI PROCEDURES Final R esult from Last 3 Months Insurance [employer] Care Teams Home Care Associate Relationship Specialty [place] [address] [place] [address] PCP - General Internal Medicine 12/11/24
--- OUTSIDE RECORDS SUMMARY | 2025-01-04 10:39 | XMS_ITS ---
Author Organization [facility] Address [address] [place] [address] Care Team Providers Care Clinical Dermatologist Name Role Phone Tess Nelson Primary Care Provider REASON FOR VISIT progress note Encounters Encounter Location Date Provider Diagnosis [facility] - Tess Nelson [address] [place] [address] 09/02/2024 Tess Nelson Plan Of Treatment No Information Progress Notes * JAMESKenishaJasminaB:1990 (34 yo F)Acc No.[id number]:09/02/2024 Patient: Rosemary INMAN :1990 A ge:34 Y S ex:Female Address:[place] [address] * true * Date: Generated for Fran gilmore/Naif/eTransmitting on: 0 01/04/2025 10:39 AM CDT
--- OUTSIDE RECORDS SUMMARY | 2025-01-04 10:39 | XMS_ITS | Patient Health Record ---
Author Organization [employer] [facility] Address [address] [address] Care Team Providers Care Financial Management Consultant Name Role Phone Tess Nelson Primary Care Provider [phone] Ebony Loo Unavailable [phone] Migration, Provider Unavailable Unavailable Allergies No Known Allergies Results Component Value Reference Range Notes COMPREHENSIVE METABOLIC PANE L Reviewed date:03/12/2024 01:50:25 PM Interpretation: Performing Lab:[facility], [address] [place], [address] Lorraine Aguilar MD Notes/Report: FASTING:YES FASTING: YES DEXAMETHASONE Reviewed date:03/21/2024 07:19:37 PM Interpretation: Performing Lab:[facility]aitlyn BERGER[facility],, [address] [place], [address] Bette Jaeger MD,PhD,ANAMARIA Notes/Report: FASTING:YES FASTING: YES DEXAMETHASONE 207 Reference Ranges for Dexamethasone: Baseline: Less than 20 ng/dL 1 mg dexamethasone overnight: 180-550 ng/dL (8:00-10:00 AM) This test was developed and its analytical performance characteristics have been determined by [employer]. It has not been cleared or approved by FDA. This assay has been validated pursuant to the CLIA regulations and is used for clinical purposes. T3, FREE Reviewed date:03/12/2024 01:51:07 PM Interpretation: Performing Lab:[facility], [address] [place], [address] Lorraine Aguilar MD Notes/Report: FASTING:YES FASTING: YES CORTISOL, TOTAL Reviewed date:03/12/2024 01:53:12 PM Interpretation: Performing Lab:[facility]MAN[facility], [address], [place], [address] Lorraine Aguilar MD Notes/Report: FASTING:YES FASTING: YES C-PEPTIDE Reviewed date:03/12/2024 01:49:55 PM Interpretation: Performing Lab:[facility], [address], [place], [place], [address] Lorraine Aguilar MD Notes/Report: FASTING:YES FASTING: YES INSULIN Reviewed date:03/12/2024 01:50:45 PM Interpretation: Performing Lab:[facility], [address], [place], [address] Lorraine Aguilar MD Notes/Report: FASTING:YES FASTING: YES CBC (INCLUDES DIFF/PLT) Reviewed date:04/03/2024 11:20:32 AM Interpretation: Performing Lab:[facility], [address], [place], [place], [address] Lorraine Aguilar MD Notes/Report: FASTING:YES FASTING: YES T4, FREE Reviewed date:03/12/2024 01:50:52 PM Interpretation: Performing Lab:[facility], [address], [place], [address] Lorraine Aguilar MD Notes/Report: FASTING:YES FASTING: YES TSH Reviewed date:03/12/2024 01:49:49 PM Interpretation: Performing Lab:[facility], [address], [place], [address] Lorraine Aguilar MD Notes/Report: FASTING:YES FASTING: YES PLATELET ESTIMATION Reviewed date:03/12/2024 01:53:24 PM Interpretation: Performing Lab:[facility], [address], [place], [address] Lorraine Aguilar MD Notes/Report: FASTING:YES FASTING: YES CBC MORPHOLOGY Reviewed date:03/12/2024 01:51:29 PM Interpretation: Performing Lab:[facility], [address], [place], [address] Lorraine Aguilar MD Notes/Report: FASTING:YES FASTING: YES CBC MORPHOLOGY NORMAL Acanthocytes 1 + Anisocytosis 1 + Microcytosis 2 + Poikilocytosis 1 + Polychromasia 1 + Hypochromasia 2 + Ovalocytes 1 + Crenated red blood cells 1 + COMPREHENSIVE METABOLIC PANE L Reviewed date:06/20/2024 08:10:46 PM Interpretation: Performing Lab:[facility], [address], [place], [address] Lorraine Aguilar MD Notes/Report: DRAWN AT 950 FASTING:YES FASTING: YES ACTH, PLASMA Reviewed date:06/20/2024 08:10:40 PM Interpretation: Performing Lab:[facility]aitlyn HERNANDEZ/[facility], [address], [place], [address] Jimmy Hawkins M.D.,PhD Notes/Report: DRAWN AT 950 FASTING:YES FASTING: YES T3, FREE Reviewed date:06/16/2024 07:44:05 PM Interpretation: Performing Lab:[facility], [address], [place], [address] Lorraine Aguilar MD Notes/Report: DRAWN AT 950 FASTING:YES FASTING: YES DHEA SULFATE Reviewed date:06/16/2024 07:44:32 PM Interpretation: Performing Lab:[facility], [address], [place], [address] Lorraine Aguilar MD Notes/Report: DRAWN AT 950 FASTING:YES FASTING: YES ESTRADIOL Reviewed date:06/16/2024 07:44:18 PM Interpretation: Performing Lab:[facility], [address], [place], [address] Lorraine Aguilar MD Notes/Report: DRAWN AT 950 FASTING:YES FASTING: YES HEMOGLOBIN A1c Reviewed date:06/16/2024 07:43:39 PM Interpretation: Performing Lab:[facility], [address], [place], [address] DarcieSulma Aguilar Notes/Report: DRAWN AT 950 FASTING:YES FASTING: YES INSULIN Reviewed date:06/16/2024 07:44:25 PM Interpretation: Performing Lab:[facility], [address], [place], [address] Lorraine Aguilar MD Notes/Report: DRAWN AT 950 FASTING:YES FASTING: YES CBC (INCLUDES DIFF/PLT) Reviewed date:06/20/2024 08:11:15 PM Interpretation: Performing Lab:[facility], [address], [place], [address] Lorraine Aguilar MD Notes/Report: DRAWN AT 950 FASTING:YES FASTING: YES VITAMIN B12/FOLATE, SERUM PA ROYA Reviewed date:06/16/2024 07:43:58 PM Interpretation: Performing Lab:[facility], [address], [place], [place], [address] Lorraine Aguilar MD Notes/Report: DRAWN AT 950 FASTING:YES FASTING: YES PROGESTERONE Reviewed date:06/19/2024 02:53:21 PM Interpretation: Performing Lab:[facility], [address], [place], [address] Lorraine Aguilar MD Notes/Report: DRAWN AT 950 FASTING:YES FASTING: YES IRON AND TOTAL IRON BINDING CAPACITY Reviewed date:06/20/2024 08:10:56 PM Interpretation: Performing Lab:[facility], [address], [place], [place], [address] Lorraine Aguilar MD Notes/Report: DRAWN AT 950 FASTING:YES FASTING: YES LIPID PANEL Reviewed date:06/20/2024 08:11:02 PM Interpretation: Performing Lab:[facility], [address], [place], [address] Lorraine Aguilar MD Notes/Report: DRAWN AT 950 FASTING:YES FASTING: YES T4, FREE Reviewed date:06/20/2024 08:10:32 PM Interpretation: Performing Lab:[place], [facility], [address] [place], [address] Lorraine Aguilar MD Notes/Report: DRAWN AT 950 FASTING:YES FASTING: YES TSH Reviewed date:06/16/2024 07:44:12 PM Interpretation: Performing Lab:[place], [facility], [address] [place], [address] Lorraine Aguilar MD Notes/Report: DRAWN AT 950 FASTING:YES FASTING: YES TESTOSTERONE, FREE (DIALYSIS ) AND TOTAL,MS Reviewed date:06/20/2024 08:10:24 PM Interpretation: Performing Lab:[facility], [address] [address], [address], [place], [address] John Kramer MD,PhD Notes/Report: DRAWN AT 950 FASTING:YES FASTING: YES TESTOSTERONE, TOTAL, MS 4 2-45 ng/dL For additional information, please refer to https://education.Trip4real.Proteus Agility/faq/HCC077 (This link is being provided for informational/educational purposes only.) (Note) This test was developed and its analytical performance characteristics have been determined by [employer]. It has not been cleared or approved by the FDA. This assay has been validated pursuant to the CLIA regulations and is used for clinical purposes. TESTOSTERONE, FREE 0.8 0.1-6.4 pg/mL (Note) This test was developed and its analytical performance characteristics have been determined by [employer]. It has not been cleared or approved by the FDA. This assay has been validated pursuant to the CLIA regulations and is used for clinical purposes. [facility] [address] [facility] [address] John Kramer MD, PhD Reason For Referral Reason Dr. Sg Haro [facility] Oncology and Hematology - [address] [place], [place] [id number] Diagnosis 1 Abnormal finding of blood chemistry, unspecified (R79.9) Diagnosis 2 Other abnormality of red blood cells (R71.8) Referral Organization [facility], [facility] - Tess Nelson Referring Provider First Name Ebony Referring Provider Last Name Eze Referring Provider [facility] Referral Priority Routine Reason hemoglobin of 6.6, n eeds transfusion and workup for hemolytic anemia, vs sickle cell vs severe anemia, needs urgent evaluation thank you Referral Organization [facility] - Tess Nelson Referring Provider First Name Tess Referring Provider Last Name Omar [facility]erred Provider Specialty Hematology Referral Priority Routine Reason severe iron def anem ia, iron sat 1%; Hgb 6.6 Referral Organization [facility] - Tess Omar Referring Provider First Name Tess Referring Provider Last Name Omar Referring Provider [facility] Referred Provider Specialty Hematology Referral Priority Routine Medications Medication SIG (Take, Route, Fr equency, Duration) Notes Start Date End Date Status dexAMETHasone 1 MG 1 tablet Orally at 1 0 pm night before 8 am cortisol for 1 days 09/02/2024 Active Mounjaro 10 MG/0.5ML inject 0.5ml Subcut aneous weekly for 90 days 08/12/2024 Active metFORMIN HCl ER 500 MG 2 tab orally twi ce a day for 90 days 03/11/2024 Active Mounjaro 12.5 MG/0.5ML inject 12.5 mg Brito bcutaneous weekly for 90 days 09/02/2024 Active Problems Problem Type SNOMED Code ICD Code Onset Dates Problem Status W/U Status Risk Notes Problem Hyperglycemia due to type 2 diabetes mellitus (066830819577506) Type 2 diabetes mellitus with hyperglycemia (E11.65) Active confirmed Problem Obesity (393269863) Obesity, unspecified (E66.9) Active confirmed Problem Iron deficiency anemia (72969759) Iron deficiency anemia, unspecified (D50.9) Active confirmed Problem Chronic anemia (503087959) Anemia in other chronic diseases classified elsewhere (D63.8) Active confirmed Problem Morbid obesity (disorder) (118991182) Morbid (severe) obesity due to excess calories (E66.01) Active confirmed Problem 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, 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 Problem Excessive and frequent menstruation (031503462) Excessive and frequent menstruation with regular cycle (N92.0) Active confirmed Problem Body mass index 40+ - morbidly obese (410835480) Body mass index [BMI] 50.0-59.9, adult (Z68.43) Active confirmed Vital Signs Heart Rate 112 /min 09/02/2024 SPO2: 99% Blood pressure diastolic 84 mm Hg 09/02/2024 SPO 2: 99% Height 67 in 09/02/2024 SPO2: 99% Blood pressure systolic 119 mm Hg 09/02/2024 SPO2 : 99% Weight 280.0 lbs 09/02/2024 SPO2: 99% BMI 43.85 kg/m2 09/02/2024 SPO2: 99% Encounters Encounter Location Date Provider Diagnosis [facility] [address] [place] [address] 06/07/2024 Tess Nelson Type 2 diabetes mellitus with hyperglycemia E11.65 ; Morbid (severe) obesity due to excess calories E66.01 and Excessive and frequent menstruation with regular cycle N92.0 [facility] [address] [place] [address] 09/02/2024 Tess Nelson Type 2 diabetes mellitus with hyperglycemia E11.65 ; Iron deficiency anemia, unspecified D50.9 ; Obesity, unspecified E66.9 and Dietary counseling and surveillance Z71.3 [facility] [address] [place] [address] 10/28/2024 Tess Nelson [facility] [address] [place] [address] 07/06/2024 Provider Migration Type 2 diabetes mellitus with hyperglycemia E11.65 and Morbid (severe) obesity due to excess calories E66.01 [facility] [address] [place] [address] 03/07/2024 Ebony Loo Morbid (severe) obesity due to excess calories E66.01 ; Body mass index [BMI] 50.0-59.9, adult Z68.43 ; Type 2 diabetes mellitus with hyperglycemia E11.65 ; Abnormal weight gain R63.5 and Excessive and frequent menstruation with regular cycle N92.0 [facility] [address] [place] [address] 04/04/2024 Tess Nelson [facility] [employer] [facility] [address] [place] [address] 06/06/2024 Tess Omar [facility] [address] [place] [address] 06/10/2024 Tess Omar [facility] - Tess [facility] [address] [place] [address] 06/17/2024 Tess Omar [facility] [address] [place] [address] 06/19/2024 Tess Omar [facility] [address] [place] [address] 06/19/2024 Tess Omar Anemia in other chronic diseases classified elsewhere D63.8 [facility], [facility] - Tess [facility] [address] [place] [address] 08/12/2024 Tess Omar Type 2 diabetes mellitus with hyperglycemia E11.65 [facility] [address] [place] [address] 09/02/2024 Tess Nelson [facility] [id number] [place] [address] 09/17/2024 Tess Omar Morbid (severe) obesity due to excess calories E66.01 [facility] - Tess [facility] [address] [place] [address] 04/03/2024 Ebony Loo Abnormal finding of blood chemistry, unspecified R79.9 ; Other abnormality of red blood cells R71.8 ; Person consulting for explanation of examination or test findings Z71.2 and Type 2 diabetes mellitus with hyperglycemia E11.65 Assessments Encounter Date Diagnosis (ICD Code) Assessment Notes Treatment Notes Treatment Clinical Notes Section Notes 06/07/2024 Type 2 diabetes mellitus with hyperglycemia (ICD-10 - E11.65) 09/02/2024 Type 2 diabetes mellitus with hyperglycemia (ICD-10 - E11.65) 09/02/2024 Iron deficiency anemia, unspecified (ICD-10 - D50.9) 07/06/2024 Type 2 diabetes mellitus with hyperglycemia (ICD-10 - E11.65) 03/07/2024 Morbid (severe) obesity due to excess calories (ICD-10 - E66.01) 03/07/2024 Body mass index [BMI] 50.0-59.9, adult (ICD-10 - Z68.43) 06/19/2024 Anemia in other chronic diseases classified elsewhere (ICD-10 - D63.8) 08/12/2024 Type 2 diabetes mellitus with hyperglycemia (ICD-10 - E11.65) 09/17/2024 Morbid (severe) obesity due to excess calories (ICD-10 - E66.01) 04/03/2024 Abnormal finding of blood chemistry, unspecified (ICD-10 - R79.9) 04/03/2024 Other abnormality of red blood cells (ICD-10 - R71.8) R/O thalassemia or other blood dyscrasia given her abnormal CBC. Will refer to Dr. Sg Haro in [facility]. Pt provided phone number and advised to do f/u appt. Referral to Doctor Of Podiatry: Due to abnormalities in your CBC, I have referred you to Dr. Sg Haro at [facility] in [place]. Please call [phone] to schedule an appointment. If you encounter any delays, let me know, and we can consider alternative options. 06/07/2024 Morbid (severe) obesity due to excess calories (ICD-10 - E66.01) 09/02/2024 Obesity, unspecified (ICD-10 - E66.9) 07/06/2024 Morbid (severe) obesity due to excess calories (ICD-10 - E66.01) 03/07/2024 Type 2 diabetes mellitus with hyperglycemia (ICD-10 - E11.65) -Start taking 1000mg PO metformin XR BID, discontinue Janumet combination therapy. -Increase mounjaro 5mg to 7.5mg subcutaneously weekly to help with BG control, weight loss since she is tolerating well. - Monitor A1C levels and adjust medications as needed. - Educate on the importance of blood sugar control during fertility treatments and . Plan: Continue current medication regimen, monitor A1C levels, and adjust as necessary. -Obtain CMP 04/03/2024 Person consulting for explanation of examination or test findings (ICD-10 - Z71.2) 06/07/2024 Excessive and frequent menstruation with regular cycle (ICD-10 - N92.0) 09/02/2024 Dietary counseling and surveillance (ICD-10 - Z71.3) 03/07/2024 Abnormal weight gain (ICD-10 - R63.5) - DST testing to rule out Lilly's syndrome. - Pt given lab order to [facility] to complete total cortisol dexasuppresion and dexamethasone level -Screening thyroid function (TSH, FT4, FT3) at [facility] 04/03/2024 Type 2 diabetes mellitus with hyperglycemia (ICD-10 - E11.65) -Elevated insulin levels. Plan: Continue Metformin therapy 1000mg, mounjaro 7.5mg, monitor insulin and blood sugar levels, and adjust treatment as necessary. Encourage lifestyle modifications including diet and exercise. 03/07/2024 Excessive and frequent menstruation with regular cycle (ICD-10 - N92.0) - Regular menstrual cycles every 28 days, heavy periods. - History of fibroids and possible PCOS. - Last transvaginal ultrasound in 2021. - D&C in 2019. Plan: Continue monitoring with fertility specialist. 03/07/2024 Other Case discussed with BEATRICE Raya. Agree with plan. Tess Nelson MD 04/03/2024 Other Cortisol Levels - Total cortisol 1.1, will rescreen DST in the fall. Discuss at Oct appt. Plan: No intervention needed at this time Due to the nature of telemedicine/teleph onic visit, the ability to do physical assessment was limited to what can be accomplished by patient directed telephonic visit based on instruction. Those limits are understood by the patient and myself. Impression is based on history, available information, and physical findings accomplished with telephonic visit. Chronic disease/problem list/medication list reviewed and updated where indicated. Discussed diagnosis, plan including risks, benefits, and options of treatment. Advised to call for new, worsening or persistent symptoms. Level of patient risk was of moderate complexity due to the documented nature of presentation, the information assessment required and the nature of the development of an evaluation and treatment plan as documented PMH, FHx, SHx, Surgical HX, Quality Management review carried out and addressed as documented today as part of this visit. Medication list was reviewed and adjusted as indicated. Medication requiring a refill was addressed. Risks and benefits of any new medications were discussed and all questions were answered. 06/07/2024 Other Assessment and Plan: 1. Weight loss and Mounjaro medication management - Patient has lost 30 pounds on Mounjaro 7.5 mg - Plan: Increase Mounjaro to 10 mg, monitor for nausea, vomiting, or digestive issues. Reevaluate in one month for possible further increase to 15 mg if tolerated. 2. Fertility and cortisol levels - Patient's cortisol level was 1.1, below the Lilly's threshold of 1.8 - Plan: Continue metformin, repeat cortisol level test to ensure it is not climbing. If climbing, consider adrenal imaging for nodules. 3. Heavy menstrual bleeding and possible fibroids - Patient has seen a quality assurance qa lab technician and received a transfusion - Plan: Coordinate with patient's air quality chemist, Dr. Tang, for further evaluation and management of fibroids 4. Thyroid and glucose levels - Patient's thyroid and glucose levels are within normal limits - Plan: Continue monitoring thyroid and glucose levels, maintain metformin twice daily 5. Diet and lifestyle - Patient reports recent poor diet choices, including fast food consumption - Plan: Encourage patient to improve diet and make healthier choices, monitor weight loss progress 6. Fatigue - Patient reports mild fatigue - Plan: Monitor fatigue levels, consider further evaluation if it worsens or does not improve with increased Mounjaro dose 7. Cholesterol panel and inflammation - Family history of heart disease - Plan: Order cholesterol panel, check for inflammation markers, and monitor for any signs of clotting or heart disease 8. Vitamin levels - Plan: Check vitamin B12, folic acid, and cholesterol levels to ensure adequate levels prior to potential 9. Prescription refills and pharmacy update - Plan: Update patient's pharmacy information, send Mounjaro 10 mg and dexamethasone prescriptions to [facility], ensure no insurance issues 10. Sinus congestion - Patient reports mild sinus congestion - Plan: Monitor symptoms, recommend [id number] decongestants if needed, and evaluate for possible sinus infection if symptoms worsen or persist. Spent 25 minutes preparing to see the patient (ex review of tests/chart), obtaining and / or reviewing separately obtained history, performing a medically appropriate examination and/or evaluation, counseling and educating the patient/family/childbirth and infant care teacher, ordering medications, tests, or procedures, referring and communicating with other health physician locums urgent care, documenting clinical information in the electronic or other health record, independently interpreting results and communicating results to the patient/family/childbirth and infant care teacher and care coordinating patient plan. Patient alert and oriented x 4 and aware of discussion noted above and in agreeance to plan in management of type 2 DM, obesity and irregular cycles/heavy. 09/02/2024 Other Assessment and Plan: Weight Loss and Prediabetes Management Patient has successfully lost 60 pounds on Enduro and has an A1c of 5.8, indicating prediabetes. Increase mounjaro dose to 12.5 mg, continue healthy diet habits, and aim for an additional 20-30 pounds weight loss to improve chances of and overall health. Iron Deficiency Anemia Patient has low iron levels despite taking iron pills for the past month, likely due to heavy menstrual bleeding. Refer patient to a quality assurance qa lab technician (Dr. Haro) in [place] for further evaluation and management. Consider iron infusion if patient becomes to ensure safe blood counts for both mother and baby. Menstrual Bleeding and Gynecological Concerns Patient reports heavy menstrual bleeding and is currently under the care of a air quality chemist. Obtain air quality chemist's information and send a note regarding patient's progress and concerns. Continue monitoring and managing menstrual bleeding. Hemoglobinopathy Screening Patient has no known family history of thalassemias or sickle cell, but will undergo screening to rule out any potential issues. Order hemoglobinopathy blood work to check for sickle cell or thalassemias. Review results and follow up as needed. Follow-up and Ongoing Care Patient is managing well on the lowest possible dose of medication and has made significant improvements in weight and diabetes management. Schedule a follow-up appointment in 2-3 months to monitor progress and address any new concerns. Encourage patient to maintain healthy habits and stay hydrated. Spent 15 minutes preventative counseling patient on dietary recommendations and changes in setting of hyperglycemia- need to restrict refined sugars and processed foods and incorporate up to 150 minutes of moderate level activity weekly. Spent 25 minutes preparing to see the patient (ex review of tests/chart), obtaining and / or reviewing separately obtained history, performing a medically appropriate examination and/or evaluation, counseling and educating the patient/family/childbirth and infant care teacher, ordering medications, tests, or procedures, referring and communicating with other health physician locums urgent care, documenting clinical information in the electronic or other health record, independently interpreting results and communicating results to the patient/family/childbirth and infant care teacher and care coordinating patient plan. Patient alert and oriented x 4 and aware of discussion noted above and in agreeance to plan in management of type 2 DM/well controlled, JANICE, obesity/weight management. Plan Of Treatment No Information Insurance Providers Payer Name Payer Address Payer Phone Subscriber Number Group Number Insured Name Patient Relationship to Insured Coverage Start Date Coverage End Date [employer] [address] [place] [phone] [id number] Rosemary Corado Self - patient is the insured Medical (General) History Medical History History ICD Code DIABETIES WEIGHT LOSS Surgical History Surgery Date(Month/Year) HYSTEROSCOPY 2022 Hospitalization History Reason Date(Month/Year) D&C 2019
--- OUTSIDE RECORDS SUMMARY | 2025-01-04 10:40 | XMS_ITS | Clinical Summary ---
Author Organization [facility] Honorio Pettybanner Address [address] [place] [address] Care Team Providers Care Tow Truck Dispatcher Name Role Phone Unavailable Primary Care Provider Unavailabl e Allergies No known active allergies Medications tirzepatide (MOUNJARO SUBCUT) Inject by subcutaneous injection. Active metformin HCl (METFORMIN ORAL) Take by mouth. Activ e Active Problems No known active problems Encounters Date Type Department Care Team Description 12/03/2024 External Device Data [facility] ABSTRACTION Provider, Abstract 11/21/2024 Telephone [facility] Oncology and Hematology - [place] [address] [facility] [address] [place] [address] Sg Haro MD Labs not done for appt. 11/06/2024 External Device Data [facility] ABSTRACTION Provider, Abstract 11/06/2024 External Device Data [facility] ABSTRACTION Provider, Abstract 10/26/2024 External Device Data [facility] ABSTRACTION Provider, Abstract 10/25/2024 External Device Data [facility] ABSTRACTION Provider, Abstract 10/22/2024 External Device Data [facility] ABSTRACTION Provider, Abstract 10/09/2024 External Device Data [facility] ABSTRACTION Provider, Abstract 10/08/2024 External Device Data [facility] ABSTRACTION Provider, Abstract from Last 3 Months Family History Medical History Relation Name Comments No Known Problems Brother 1 No Known Problems Brother 2 Diabetes Brother 3 Heart Disease Father No Known Problems Mother Relation Name Status Comments Brother 1 Alive Brother 2 Alive Brother 3 Alive Father Mother Alive Social History Tobacco Use Types Packs/Day Years Used Date Smoking Tobacco: Never Tobacco Cessation:Counseling Given: Not Answered Alcohol Use Standard Drinks/Week Comments Never 0 (1 standard drink = 0.6 oz pur e alcohol) Comments Unknown Sex and Gender Information Value Date Recorded Sex Assigned at Not on file Legal Sex Female 11:03 AM CDT Gender Identity Not on file Sexual Orientation Not on file Last Filed Vital Signs Vital Sign Reading Time Taken Comments Blood Pressure 160/87 2024 2:40 PM CDT Pulse 93 2024 2:37 PM CDT Temperature 36.7 C (98 F) 2024 2:37 PM CDT Respiratory Rate - - Oxygen Saturation 96% 2024 2:37 PM CDT Inhaled Oxygen Concentration - - Weight 147 kg (324 lb) 2024 2:39 PM CDT Height 170.2 cm (5' 7 ) 2024 2:37 PM CDT Body Mass Index 50.75 2024 2:37 PM CDT Plan of Treatment Upcoming Encounters Date Type Department Care Team (Late st Contact Info) Description 01/10/2025 1:15 PM CDT Office Visit [facility] Oncology and Hematology - [place] [address] [facility] [address] [place] [address] Sg Haro MD [address] [facility] [address] [place] [address] Health Maintenance Due Date Last Done Comments Pre-Diabetes and Diabetes Screening 1988 DTAP/TDAP/TD VACCINES (1 - Tdap) 2007 HEPATITIS B VACCINES (1 of 3 - 19+ 3-dose series) 2007 HPV/Cotest (21-29) 2009 CERVICAL CANCER SCREENING 2018 HPV/Cotest (30-65) 2018 PAP SMEAR 2018 INFLUENZA VACCINE (#1) 2024 HPV VACCINES Aged Out No longer eligi ble based on patient's age to complete this topic Insurance [facility] OPEN ACCESS HMO
--- OUTSIDE RECORDS SUMMARY | 2025-01-04 10:40 | XMS_ITS ---
Author Organization [facility] [facility] Address [address] [place] [address] Care Team Providers Care Hospital Education Coordinator Name Role Phone Tess Nelson Primary Care Provider Medications Medication SIG (Take, Route, Fr equency, Duration) Notes Start Date End Date Status metFORMIN HCl ER 500 MG 2 tab orally twi ce a day for 90 days 03/11/2024 Active Encounters Encounter Location Date Provider Diagnosis [facility] - Tess Nelson [address] [place] [address] 09/17/2024 Tess Nelson Morbid (severe) obesity due to excess calories E66.01 Assessments Encounter Date Diagnosis (ICD Code) Assessment Notes Treatment Notes Treatment Clinical Notes Section Notes 09/17/2024 Morbid (severe) obesity due to excess calories (ICD-10 - E66.01) Plan Of Treatment Medication Medication Name Sig Start Date Stop Date Notes metFORMIN HCl ER 500 MG 2 tab orally twi ce a day for 90 days 03/11/2024 Progress Notes * ERIKA RichiTimothy:1990 (34 yo F)Acc No.[id number]:09/17/2024 Patient: Rosemary INMAN :1990 A ge:34 Y S ex:Female Address:[place] [address] * Refills Refill metFORMIN HCl ER Tablet Extended Release 24 Hour, 500 MG, orally, 360, 2 tab, twice a day, 90 days, Refills=1 * true * Date: Generated for Printi ng/Faxing/eTransmitting on: 0 01/04/2025 10:39 AM CDT
--- OUTSIDE RECORDS SUMMARY | 2025-01-04 10:40 | XMS_ITS ---
Author Organization [employer] [facility] [facility] Address [address] [facility] [place] [address] Care Team Providers Care Prepress Proofer Name Role Phone Tess Nelson Primary Care Provider REASON FOR VISIT 2 MONTH F/U LUCERO Encounters Encounter Location Date Provider Diagnosis [facility] - Tess Nelson [address] [place] [address] 10/28/2024 Tess Nelson Plan Of Treatment No Information Progress Notes * Allen JAMESB:1990 (34 yo F)Acc No.[id number]:10/28/2024 Progress Notes Patient: Rosemary INMAN Provider: Chance Nelson MD :1990 A ge:34 Y S ex:Female Date:10/28/2024 Address:[address] [facility] Subjective: * Chief Complaints: * 1 . 2 MONTH F/U LUCERO. * Medical History: Objective: * Vitals: Assessment: Plan: * Treatment: * Billing Information: * Visit Code: * Procedure Codes: * Electronic signature of Ronaldo Nelson MD on 01/04/2025 at 10:39 AM CDT Sign off status: Pending * Provider: Chance Nelson MD Date: 10/28/2024 Generated for Fran gilmore/Naif/eTransmitting on: 01/04/2025 10:39 AM CDT
--- OUTSIDE RECORDS SUMMARY | 2025-01-04 10:40 | XMS_ITS | Clinical Summary ---
Author Organization [facility] Address [address] [place] [address] Care Team Providers Care Education Program Associate Name Role Phone Unavailable Primary Care Provider Unavailabl e Source Comments [facility],non-owned Affiliates and Associated Physician Practices is amultiple site organization consisting of ambulatory clinics and hospital sitesin [place], [place], [place] and [place]. This disclosure is being madepursuant to the Care Everywhere program and may not contain all information available regarding this patient. Last updated 18.[facility] [employer] Social History Tobacco Use Types Packs/Day Years Used Date Smoking Tobacco: Never Assessed Comments Unknown Sex and Gender Information Value Date Recorded Sex Assigned at Not on file Legal Sex Female 3:30 PM CDT Gender Identity Not on file Sexual Orientation Not on file Plan of Treatment Health Maintenance Due Date Last Done Comments PAP SMEAR 1990 HIV SCREENING 2003 HEPATITIS C SCREENING 04/21/2006 DTAP/TDAP/TD VACCINES (1 - Tdap) 2007 HEPATITIS B VACCINE (1 of 3 - 19+ 3-dose series) 2007 COVID-19 VACCINE (2023-2 5 season) 2024 09/16/2021, 12/01/2020, 11/03/2020 DEPRESSION SCREENING 08/21/2024 INFLUENZA VACCINE (Season Ended) 2025 ZOSTER VACCINE (1 of 2) 2038 HIB VACCINE Aged Out No longer eligi ble based on patient's age to complete this topic HPV VACCINE Aged Out No longer eligi ble based on patient's age to complete this topic MENINGOCOCCAL (Group B) VACCINE SHARED DECISION-MAKING Aged Out No longer eligible based on patient's age to complete this topic MENINGOCOCCAL GROUPS A/C/Y/W VACCINE Aged Out No longer eligible b ased on patient's age to complete this topic PNEUMOCOCCAL VACCINE Aged Out No long er eligible based on patient's age to complete this topic Insurance [facility] Address: [facility] [address] [place] [address]
--- OUTSIDE RECORDS SUMMARY | 2025-01-04 10:40 | XMS_ITS | Data Portability ---
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 At this time to do not recommend IUI due to the complications a could pose to the potential fetus but also to the patient. Increased risk of miscarriage, preeclampsia, malformation. will plan to check labs discussed IUI procedure, medications including letrozole and risk of ovarian hyperstimulation will consider anneliese and I will consult with pcp after lab work is returned, continue to monitor menstrual cycles Not available 01/05/2024 10:40:46 Plan of Treatment Reminders Order Date Submit Date Provider Last Modified By Organization Details Last Modified Time Details Appointments None record ed. Lab None record ed. Referral None record ed. Procedures None record ed. Surgeries None record ed. Imaging None record ed. Medication Orders None record ed. Patient TargetsNo targets recorded. Patient InstructionsNo instructions recorded. Reason for Referral None Reported. Results Created Date Observation Date Name Description Value Unit Range Abnormal Flag Note LastModifiedBy Organization Detail LastModifiedTime 01/17/20 24 01/17/2024 ANTIM KAREEMLER KUSH HORMO NE ([facility]) anti-mulleri an hormone (amh) 1.77 NG/mL Femal e Refer ence Range s 20-24 years : 1.22 - 11.70 ng/mL 25-29 years : 0.89 - 9.85 ng/mL 30-34 years : 0.58 - 8.13 ng/mL 35-39 years : 0.15 - 7.49 ng/mL 40-44 years : 0.03 - 5.47 ng/mL The follo wing resul ts were obtai marissa with the Ele[employer] assay . Resul ts from assay s of other manuf actur es canno t be used inter [facility]. Not Available [facility] (Lab) [address] [place], [address], 01/23/2024 17:42:53 01/17/20 24 01/17/2024 ESTRA DIOL estradiol 29.4 pg/mL This assay was perfo rmed using [employer] ratio n reage nts and test kits. Value s obtai marissa with other assay metho ds or kits canno t be used inter [facility] . Femal e Estra diol Range s: Folli cular phasE 12.4- 233 pg/mL Ovula tion phasE 41.0- 398 pg/mL Lutea l phasE 22.3- 341 pg/mL Postm enopa usal <5-13 8 pg/mL Healt hy Pregn ant Women 1st Trime ster 154-3 243 pg/mL 2nd Trime ster 1561- 56068 pg/mL 3rd Trime ster 8525- >3000 0 pg/mL Not Available [facility] (Lab) [address] [place], [address], 01/23/2024 17:42:53 01/17/20 24 01/17/2024 PROGE STERO NE progesterone 0.12 NG/mL This assay was perfo rmed using [employer] ratio n reage nts and test kits. Value s obtai marissa with other assay metho ds or kits canno t be used inter [facility] . Femal e Proge stero ne Range s: Folli cular phasE 0.06- 0.89 ng/mL Ovula tion phasE 0.12- 12.00 ng/mL Lutea l phasE 1.83- 23.90 ng/mL Postm enopa usal <0.05 -0.13 ng/mL Healt hy Pregn ant Women 1st Trime ster 11.0- 44.30 2nd Trime ster 25.40 -83.3 0 3rd Trime ster 58.70 -214. 00 Not Available [facility] (Lab) [address] [facility], [place], [address], 01/23/2024 17:42:54 01/17/20 24 01/17/2024 PROLA CTIN prolactin, total 18.10 NG/mL 4.79-2 3.30 This assay was perfo rmed using [employer] n reage nts and test kits. Value s obtai marissa with other assay metho ds or kits canno t be used inter [facility] . Not Available [facility] (Lab) [address] [facility], [place], [address], 01/23/2024 17:42:54 01/17/20 24 01/17/2024 LH (LUTE NIZIN G HORMO NE) LH 4.8 mIU/m L This assay was perfo rmed using [employer] n reage nts and test kits. Value s obtai marissa with other assay metho ds or kits canno t be used inter [facility] . Femal es Mid-F ollic ular: 2.4-1 2.6 mIU/m L Mid-C ycle: 14.0- 95.6 mIU/m L Mid-L uteal : 1.0-1 1.4 mIU/m L Postm enopa use: 7.7-5 8.5 mIU/m L Not Available [facility] (Lab) [address] [facility], [place], [address], 01/23/2024 17:42:55 01/17/20 24 01/17/2024 FSH FSH 5.8 mIU/m L This assay was perfo rmed using [employer] n reage nts and test kits. Value s obtai marissa with other assay metho ds or kits canno t be used inter [facility] . Femal es Folli cular : 3.5-1 2.5 mIU/m L Ovula tion: 4.7-2 1.5 mIU/m L Lutea l: 1.7-7 .7 mIU/m L Postm enopa use: 25.8- 134.8 mIU/m L Not Available [facility] (Lab) [address] , [place], [address], 01/23/2024 17:42:55 01/17/20 24 01/17/2024 DHEA SULFA TE DHEA-sulfate 56 ug/dL Femal e Range s Age(y ) Range (ug/d L) 10-15 34-28 0 15-20 65-36 8 20-25 148-4 07 25-35 99-34 0 35-45 61-33 7 45-55 35-25 6 55-65 19-20 5 65-75 9-246 > 75 12-15 4 Not Available [facility] (Lab) [address], [place], [address], 01/23/2024 17:42:56 01/17/20 24 01/17/2024 TSH, REFLE X FREE T4 TSH 1.69 uIU/m L 0.30-5 .33 Not Available [facility] (Lab) [address], [place], [address], 01/23/2024 17:42:56 01/17/20 24 01/17/2024 HEMOG LOBIN A1C hemoglobin A1C 7.0 % 0-5.6 high The Ameri can Diabe agapito Assoc iatio n recom mends that a prima ry goal of thera py edyta jain be a HBA1C of < 7% and that physi cians edyta d reeva luate the treat ment regim en in patie nts with HBA1C value s consi stent ly > 8%. <5.7% Gretchen l 5.7 - 6.4% Incre ased risk for diabe agapito >=6.5 % Diagn ostic of diabe agapito <7.0% Goal of thera py >8.0% Actio n gilson stecristobal Not Available [facility] (Lab) [address] , [place], [address], 01/23/2024 17:42:56 01/17/20 24 01/17/2024 HUMAN SEX HORMO NE COMFORT NG JUNG DELUCA sex hormone binding globulin 17.9 nmole s/L 18.2-1 35.5 low Not Available [facility] (Lab) [address] [place], [address], 01/23/2024 17:42:57 01/17/20 24 01/17/2024 TESTO STERO NE, FREE( DIALY SIS) AND TOTAL (LC/M S/MS) testosterone , total 10 NG/dL 2-45 For addit ional infor radha louise e refer to http: //[facility] jane chaney.que stdia gnost ics.c om/fa q/ Total Testo stero neLCM SMSFA Q165 (This link is being provi ded for infor jessica moore/ educa jeniffer l purpo ses only. ) This test was devel oped and its marcio tical perfo rmanc e dc cteri stics have been deter mined by [facility] ostic s [place]. It has not been clear ed or appro jenaro by the U.S. Food and Drug Admin istra tion. This assay has been valid ated pursu ant to the CLIA regul ation s and is used for clini rush purpo ses. Not Available [facility] (Lab) [address] [facility], [place], [address], 01/23/2024 17:42:57 01/17/20 24 01/17/2024 TESTO STERO NE, FREE( DIALY SIS) AND TOTAL (LC/M S/MS) testosterone , free 2.1 pg/mL 0.1-6. 4 This test was devel oped and its marcio tical perfo rmanc e dc cteri stics have been deter mined by [facility] ostic s [place]. It has not been clear ed or appro jenaro by the U.S. Food and Drug Admin istra tion. This assay has been valid ated pursu ant to the CLIA regul ation s and is used for clini rush purpo ses. Perfo rming Organ izati on [facility] n: Site ID: [id number] Name: [facility] [employer] [facility]stic [facility] [place] t[place] Addre ss: [id number] [place], [place] Direc tor: Janie Hawkins MD PhD Not Available [facility] (Lab) [address] [facility], [place], [address], 01/23/2024 17:42:57 01/17/20 24 01/17/2024 17-OH PROGE STERO NE 17-hydroxypr ogesterone, lc/MS/MS 16 NG/dL Adult Femal e Refer ence Range s for 17-Hy droxy proge stero ne: Pre-M enopa usal Mid Folli cular : 23-10 2 ng/dL Pre-M enopa usal Surge : 67-34 9 ng/dL Pre-M enopa usal Mid Lutea l: 139-4 31 ng/dL Postm enopa usal Phase : < or = 45 ng/dL Pregn emanuel: First Trime ster: 78-45 7 ng/dL Secon d Trime ster: 90-35 7 ng/dL Third Trime ster: 144-5 78 ng/dL This test was devel oped and its marcio tical perfo rmanc e dc cteri stics have been deter mined by [facility]. It has not been clear ed or appro jenaro by FDA. This assay has been valid ated pursu ant to the CLIA regul ation s and is used for clini rush purpo ses. Perfo rming Organ izati on [facility] n: Site ID: [id number] Name: [facility] [place] , Addre [place]: [id number] [facility] [place] [address] Direc tor: Bette varghese MD,Ph D,ANAMARIA Not Available [facility] (Lab) [address] [place], [address], 01/23/2024 17:42:58 11/02/19 23 11/01/2022 , aminta s No observ ation record ed. [email or web address] [place] [address], [place], [address], 11/01/2022 12:42:09 11/02/19 23 11/01/2022 US, trans vagin al No observ ation record ed. [email or web address] [place] [address], [place], [address], 11/01/2022 12:41:58 11/02/19 23 11/01/2022 US, pelvi s No observ ation record ed. [email or web address] [address], [place], [address], 11/02/2022 12:14:03 01/20/20 23 01/19/2023 XR, hyste amina pingo gram No observ ation record ed. [address], [place], [address], 01/19/2023 22:51:58 Result Notes None recorded. Procedures Surgical History Date Name Laterality Status Provider Name and Address Organization Details Recorded Time 01/21/20 21 DILATION AND CURETTAGE WITH HYSTEROSCOPY (SURG) completed Mandy Sun [facility] 01/21/2021 11:42:51 11/18/19 21 Endometrial Biopsy completed Al Pacheco MD [address], [place], [address], , P.C. 11/17/2020 15:47:28 05/21/20 02 transfusion of blood component completed Connie Pate [facility] 10/25/2022 14:35:47 Imaging Results Imaging Date Name Status LastModified by Organization Details LastModified Time 11/01/2022 US, pelvis completed [email or web address] [place] [address], [place], [address], 11/01/2022 12:42:09 11/01/2022 US, transvaginal completed [email or web address] [place] [address], [place], [address], 11/01/2022 12:41:58 11/01/2022 US, pelvis completed [email or web address] [address], [place], [address], 11/02/2022 12:14:03 01/19/2023 XR, hysterosalpingogram completed [email or web address] [facility] [address], [place], [address], 01/19/2023 22:51:58 Procedure Notes None recorded. Medical Equipment None Reported. Allergies No known drug allergies Medications Name Sig Start Date Stop Date Status Note LastModified by Organization Details LastModified Time amoxicillin 500 mg capsule 02/17 completed Not Available Not Available Not Available ibuprofen 800 mg tablet 02/17 completed Not Available Not Available Not Available ondansetron HCl 8 mg tablet Take 1 tablet twice a day by oral route as needed for 15 days. 12/28 completed Not Available Not Available Not Available ciprofloxac in 500 mg tablet TAKE 1 TABLET BY MOUTH EVERY 12 HOURS FOR 7 DAYS active Not Available Not Available No t Available progesteron e micronized 200 mg capsule TAKE 1 CAPSULE EVERY DAY BY MOUTH FOR 12 DAYS. 10/25 completed Not Available Not Available Not Available ergocalcife rol (vitamin D2) 1,250 mcg (50,000 unit) capsule TAKE 1 CAPSULE BY MOUTH ONCE A WEEK active Not Available Not Available No t Available labetalol 100 mg tablet TAKE 1 TABLET BY MOUTH EVERY 12 HOURS 12/28 completed Not Available Not Available Not Available naproxen 500 mg tablet TAKE 1 TABLET BY MOUTH TWICE DAILY WITH FOOD active Not Available Not Available No t Available FeroSul 325 mg (65 mg iron) tablet TAKE 1 TABLET BY MOUTH TWICE DAILY. 10/25 completed Not Available Not Available Not Available tranexamic acid 650 mg tablet TAKE 2 TABLETS BY MOUTH THREE TIMES DAILY WITH MEALS FOR 5 DAYS 12/28 completed Not Available Not Available Not Available Janumet XR 100 mg-1,000 mg tablet,exte nded release TAKE 1 TABLET BY MOUTH ONCE DAILY active Not Available Not Available No t Available OneTouch Ultra Blue Test Strip 10/25 completed Not Available Not Available Not Available OneTouch Ultra2 Meter 10/25 completed Not Available Not Available Not Available OneTouch Delica Plus Lancet 33 gauge 10/25 completed Not Available Not Available Not Available Rybelsus 7 mg tablet TAKE 1 TABLET BY MOUTH ONCE DAILY START WHEN FINISHED WITH 3 MG active Not Available Not Available No t Available Rybelsus 3 mg tablet TAKE 1 TABLET BY MOUTH ONCE DAILY FOR 30 DAYS 12/28 completed Not Available Not Available Not Available Ozempic 2 mg/dose (8 mg/3 mL) subcutaneou s pen injector 01/04 completed Not Available Not Available Not Available Mounjaro 5 mg/0.5 mL subcutaneou s pen injector INJECT 1 SYRINGE SUBCUTANE OUSLY ONCE A WEEK active Not Available Not Available No t Available Mounjaro 2.5 mg/0.5 mL subcutaneou s pen injector Inject 2.5 mg every week by subcutane ous route. active Not Available Not Available No t Available Vitals Date Recorded Body height Body mass index (BMI) Body weight Systolic blood pressure Diastolic blood pressure Provider Name and Address Organization Details Last Updated DateTime 11/29/2022 170.18 cm 54.3 kg/m2 856692.5 5 g 141 mm[Hg] 87 mm[Hg] [facility] 3 15:24:43 Date Recorded Body height Body mass index (BMI) Body weight Systolic blood pressure Diastolic blood pressure Provider Name and Address Organization Details Last Updated DateTime 01/27/2023 170.18 cm 53.7 kg/m2 636141.1 8 g 124 mm[Hg] 91 mm[Hg] [facility] 3 10:36:38 Date Recorded Body height Body mass index (BMI) Body weight Systolic blood pressure Diastolic blood pressure Provider Name and Address Organization Details Last Updated DateTime 12/29/2023 170.18 cm 50.3 kg/m2 084046.1 5 g 168 mm[Hg] 61 mm[Hg] Angeles Longo [facility] 4 12:52:12 Date Recorded Body height Body mass index (BMI) Body weight Systolic blood pressure Diastolic blood pressure Provider Name and Address Organization Details Last Updated DateTime 01/05/2024 170.18 cm 56.4 kg/m2 212725.2 5 g 189 mm[Hg] 98 mm[Hg] Daya Liu [facility] 4 09:11:20 Social History Question Answer Notes LastModified by Organizat ion Details LastModified Time Tobacco Smoking Status Never Smoker Mandy Sun lula, [facility] 01/20/2023 10:44:18 Do You Have An Advance Directive? No Information n ot available 11/17/2020 If You Are , What Was Your Level Of Alcohol Consumption Prior To ? None [email or web address] Information not available 01/20/2023 How Many Years Have You Consumed Alcohol? 0 Information not available 11/17/2020 Are You Blind Or Do You Have Difficulty Seeing? No Information n ot available 11/17/2020 What Is Your Level Of Caffeine Consumption? Occasional Information not available 01/12/2021 How Much Tobacco Do You Chew? None Information not available 11/17/2020 In The 14 Days Before Symptom Onset, Have You Had Close Contact With A Laboratory-confirm ed COVID-19 While That Case Was Ill? No Information n ot available 11/17/2020 In The 14 Days Before Symptom Onset, Have You Had Close Contact With A Person Who Is Under Investigation For COVID-19 While That Person Was Ill? No Information not available 11/17/2020 Have You Been To An Area Known To Be High Risk For COVID-19? No Information not available 11/17/2020 Are You Deaf Or Do You Have Serious Difficulty Hearing? No Information not available 11/17/2020 What Type Of Diet Are You Following? VEGETARIAN Information n ot available 11/17/2020 What Is The Highest Grade Or Level Of School You Have Completed Or The Highest Degree You Have Received? [id number] Information not available 11/17/2020 Are There Any Guns Present In Your Home? No Information not available 11/17/2020 Do You Use Protection During Sex? No [email or web address] Information not available 01/05/2024 Do You Use Your Seat Belt Or Car Seat Routinely? Yes Information not available 11/17/2020 Do You Have Smoke And Carbon Monoxide Detectors In Your Home? Yes Information not available 11/17/2020 How Much Tobacco Do You Smoke? No Information not available 11/17/2020 Do You Use Sunscreen Routinely? No Information not available 11/17/2020 Has Tobacco Cessation Counseling Been Provided? No [email or web address] Information not available 01/20/2023 How Many Years Have You Smoked Tobacco? 0 Information not available 11/17/2020 Have You Used IV Drugs? No Information not available 11/17/2020 Do You Have Difficulty Walking Or Climbing Stairs? No [email or web address] Information not available 01/05/2024 Sex: Unknown Functional Status Question Answer Note LastModified by Organizat ion Details LastModified Time Do you use any illicit or recreational drugs? No Information not available 11/17/2020 Do you or have you ever used any other forms of tobacco or nicotine? No [email or web address] Information not available 01/20/2023 What is your level of alcohol consumption? None Information not available 11/17/2020 Are you able to walk? YESWOREST Information not available 11/17/2020 Are you able to care for yourself? 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 No [email or web address] Information not available 01/05/2024 What is your exercise level? Moderate Information not available 11/17/2020 Mental Status Question Answer Note LastModified by Organization D etails LastModified Time Do you feel stressed (tense, restless, nervous, or anxious, or unable to sleep at night)? [id number] Information not available 11/17/2020 Family History Relationship Description Onset Age of this Age Resolved Age Notes LastModified by Organization Details LastModified Time Maternal Aunt Substance abuse Not available 2022 10:36:48 Maternal Aunt Diabetes mellitus Not available 2022 10:36:48 Maternal Aunt Substance abuse Not available 2023 09:04:01 Maternal Aunt Diabetes mellitus [email or web address] Not available 2023 09:04:01 Maternal Aunt Substance abuse [email or web address] Not available 2023 09:04:01 Maternal Aunt Diabetes mellitus [email or web address] Not available 2023 09:04:01 Maternal Grandmother Diabetes mellitus Not available 2022 10:36:48 Maternal Grandmother Diabetes mellitus [email or web address] Not available 2023 09:04:01 Maternal Grandmother Diabetes mellitus Not available 2023 09:04:01 Father Diabetes mellitus Not available 2022 10:36:48 Father Diabetes mellitus Not available 2023 09:04:01 Father Diabetes mellitus [email or web address] Not available 2023 09:04:01 Medical History Condition Response Allergies (Food, seasonal, environmental ) N Other N Drug/Latex Allergies/Reactions N Breast Cancer N Blood Transfusion N Lung Disease N Dermatologic Disorders N Defects or Inherited Disease N Breast Problem N Gestational Diabetes N Hematologic disorders N Anesthesia Complications N History of STI N Deep Vein Thrombosis N Polycystic ovary syndrome N Anxiety Disorder N Autoimmune disease N Arthritis N Polyps N Infertility N History of abnormal pap N Acid Reflux (GERD) N Cancer N Varicosities N Stroke N Neurologic/Epilepsy N Endometriosis N High Cholesterol N Headaches N Fibromyalgia N Kidney Disease N Heart Problems N Thyroid Problems N Kidney or Bladder Problems N GI Problems N Eating Disorder N Anemia Y Art (IVF or FET) N Psychiatric Illness N Ovarian Cancer N Diabetes Y Pulmonary (TB, Asthma) N Hepatitis/Liver Disease N No Past Medical History N Eczema N Urinary Tract Infection Y Abuse/Domestic Violence N Asthma N Trauma/Violence N Depression/ depression N Heart Disease N Pre-Eclampsia N Hypertension N Osteoporosis N Thrombophilias N Gynecological History Statement/Question Response Date of Last Mammogram Date of LMP 12/01/2023 On BCP's at Conception? N N Was last menstrual period normal Y STIs/STDs N HPV Vaccine Y Duration of Flow (days) 9 11 Current Control Method Seeking Pre gnancy Date of control 06/14/2017 Sexually Active? Y Seeking Date of DEXA bone scan Age of first menstrual cycle 9 Date of Last Pap Smear Sexual Problems? N Desired Control Method Seeking Pre gnancy LMP Definite N Obstetrics History GPAL:G 0 P 0 0 0 0 Type Value Living 0 Total 0 Past Encounters Encounter ID Performer Location Encounter Start Date Encounter Closed Date Diagnosis/Indication Diagnosis SNOMED-CT Code Diagnosis ICD10 Code Diagnosis Note [id number] Al Pacheco MD [place] [address] [address] 10/30/2020 11:05:39 10/30/2020 11:58:02 Abnormal uterine bleeding [id number] 9100 N93.9 This patient is a 30-year-ol d female with apparent anovulator y bleeding. We will perform endometria l biopsy at a future visit. We will obtain pelvic ultrasound . We will obtain a laboratory evaluation for positive ovarian syndrome. She has the stigmata of PCOS. Additional precaution ricki measures were taken to minimize potential exposure to the Covid-19 virus during this patient s visit, including available hand material expeditor upon arrive, temperatur e check and being asked a series of screening questions. All staff wore face coverings during this encounter, as well as provided additional cleaning and sanitizing of all surfaces, including countertop s, pens, chairs, door handles, light switches, etc, prior to and following the patient s visit. [id number] Al Pacheco MD [place] [address] [address] 11/17/2020 13:43:40 11/17/2020 15:45:46 Abnormal uterine bleeding [id number] 9100 N93.9 This patient is a 30-year-ol d female with apparent anovulator y bleeding. We will perform endometria l biopsy at a future visit. We will obtain pelvic ultrasound . We will obtain a laboratory evaluation for positive ovarian syndrome. She has the stigmata of PCOS. Additional precaution ricki measures were taken to minimize potential exposure to the Covid-19 virus during this patient s visit, including available hand material expeditor upon arrive, temperatur e check and being asked a series of screening questions. All staff wore face coverings during this encounter, as well as provided additional cleaning and sanitizing of all surfaces, including countertop s, pens, chairs, door handles, light switches, etc, prior to and following the patient s visit. [id number] Al Pacheco MD [place] [address] [address] 11/17/2020 13:44:33 11/17/2020 16:32:27 Abnormal uterine bleeding [id number] 9100 N93.9 Uterine leiomyoma [id number] 05 D25.9 this patient is a 30-year-ol d female presents for endometria l biopsy and follow-up on labs and ultrasound . We reviewed her labs and we reviewed her ultrasound in detail. Her labs show hemoglobin A1c of 10. she has been referred to Endocrinol raji. I discussed with her possibly going to her family practice doctor to get started. [facility] should [facility] that appointmen t. May be the family practice doctor, who is closer for them, can get her in sooner and get Thing started. We talked about prevention of endometria l cancer and control bleeding. Patient had thickened endometriu m on ultrasound as well as 2 moderate-s ized fibroids. we discussed the thickened endometriu m. Endometria l biopsy was performed today. We agreed to take up the bleeding issue after the biopsy results return. We spent 20 minutes face-to-fa ce discussing this complex issue in detail. There are multiple complex issues that we discussed. She talked about , talked about diabetes care, talked about her fibroids and her thickened endometriu m in her abnormal bleeding. Additional precaution ricki measures were taken to minimize potential exposure to the Covid-19 virus during this patient s visit, including available hand material expeditor upon arrive, temperatur e check and being asked a series of screening questions. All staff wore face coverings during this encounter, as well as provided additional cleaning and sanitizing of all surfaces, including countertop s, pens, chairs, door handles, light switches, etc, prior to and following the patient s visit. Endometrium thickened 44 [id number] R93.89 Polycystic ovary syndrome [id number] E28.2 [id number] Al Pacheco MD [place] [address],[place] [address] 12/01/2020 09:46:10 12/01/2020 10:54:39 Abnormal uterine bleeding [id number] 9100 N93.9 This patient is a 30-year-ol d female who presents for follow-up endometria l biopsy and evaluation for abnormal uterine bleeding. Her endometria l biopsy showed polyp fragment. We discussed this and I indicated to her that we needed to perform hysterosco py D&C to thoroughly evaluate the endometriu m. Her endometria l biopsy would be satisfacto ry in this situation. Patient is not only trying to treat abnormal uterine bleeding but we are trying to make her medical situation better for . She is interested in . She has anovulator y bleeding that is longstandi ng. She was also found to a hemoglobin A1c of 10. I indicated to her that she should not get until her diabetes under control. We are going to use progestero ne to have a cyclic bleeding profile. After her uterus is evaluated her bleeding is under control and her blood sugars are reasonable we would consider her stimulatio n ovulation. [id number] Al Pacheco MD [place] [address],[place] [address] 01/12/2021 12:37:45 01/12/2021 22:38:34 Menometrorrhagia [id number] N92.1 this patient is a 30-year-ol d female with abnormal uterine bleeding, diabetes, PCOS. We are doing progestero ne withdrawal bleeds to control her bleeding. She had a significan t. After her 1st withdrawal bleed. We talked about the need for protection of the endometriu m with monthly withdrawal bleeds. This is the 2nd time we have talked extensivel y about this. She would like to stimulate ovulation. Her last hemoglobin A1c was 10. I suggested she wait to she has a reasonably normal hemoglobin A1c which is going to be repeated at the end of January. She should see Celia Sherman in the interim to get a plan together for ovulation induction [place]. [id number] Al Pacheco MD [place] [address],[place] [address] 01/21/2021 09:38:28 01/21/2021 09:39:36 [id number] Al Pacheco MD [place] [address],[place] [address] 01/26/2021 12:37:01 01/26/2021 13:22:44 Abnormal uterine bleeding [id number] 9100 N93.9 This patient is a 30-year-ol d female presents for follow-up on abnormal uterine bleeding. Performed a hysterosco py D&C. The material within the uterus was benign. The endometria l cavity was essentiall y cleared of all tissue. There was copious amounts of material. She is going to continue progestero ne withdrawal bleeds. She has no complaints . She is going to do ovulation induction and possibly IU I With Ca [place] [address] Ca Sherman [facility] [address],[place] [address] 02/17/2021 14:45:53 02/17/2021 16:40:36 Irregular periods [id number] N92.6 Trying to conceive [id number] 9001 Z31.9 86420 Ca Sherman [facility] [address],[place] [address] 03/24/2021 16:04:21 03/24/2021 18:22:57 Irregular periods [id number] N92.6 Trying to conceive [id number] 9001 Z31.9 [id number] Ingrid Maurer [facility] [address],[place] [address] 10/25/2022 14:19:37 10/25/2022 15:06:12 Abnormal uterine bleeding [id number] 9100 N93.9 Will have Labs sent from PCP Reviewed lysteda directions Will use these to help for next couple of cycles while evaluating causes of menorrhagi a Counseled on medication R/B's, Most common side effects, & use. All questions were answered to patient satisfacti on. [id number] Al Pacheco MD [place] [address] [id number]|2025-01-04 10:40:00|2025-01-04 10:39:00|XMS_ITS|SHUKRI ZHOU|External Medical Summaries|[id number]|" Referral Summary Created on: January 04, 2025 Rosemary Corado : 1990 Sex: Female Author Organization [facility] Virtual Care Address [address] [place] [address] Phone Care Team Providers Care Lean Manufacturing Leader Name Role Phone Tess Nelson MD Primary Care Provider [phone] Encounters Date Type Department Care Team Description 01/02/2025 1:20 PM CDT Telemedicine [facility] Reproductive Endocrinology [address] [place] [address] [place] [phone] Tess Coffey MD Intramural and submucous leiomyoma of uterus (Primary Dx) 12/25/[address] [facility] Virtual Care [address] [place] [address] Patsy Ponce MRI test results 12/24/2024 Patient Self-T[address] [facility] [address] [place] [address] Virgilt, Generic Provider 12/23/2024 7:13 PM CDT - 12/23/2024 11:59 PM CDT Hospital Encounter [facility] [address] [place] [address] Fibroids Discharge Disposition: Discharge to home or self care 12/11/2024 Telephone [facility] Reproductive Endocrinology [address] [facility] [address] [place] [phone] Estefanía Haskins/pauline to schedule surgery consult 12/10/2024 Orders Only [facility] Reproductive Endocrinology [address] [place] [address] [place] [phone] Tess Coffey MD Fibroids (Primary Dx) from Last 3 Months Allergies No known active allergies Medications No known medications Active Problems Problem Noted Date Diagnosed Date Fibroids, intramural 01/02/2025 Social History Tobacco Use Types Packs/Day Years [...] Description 01/06/2025 1:24 PM CDT Hospital Encounter [address] [address] 01/20/2025 7:30 AM CDT Hospital Encounter [facility] Operating Room [address] [place] [phone] Tess Coffey MD [address] [place] [address] 01/20/2025 7:30 AM CDT - 01/20/2025 11:30 AM CDT Surgery [facility] Operating Room [address] [place] [phone] Tess Coffey MD [address] [place] [address] [id number] Robotic Assisted Laparoscopic Myomectomy with Chromopertubation Scheduled Procedures Name Priority Associated Diagnoses Date/Ti me XI ADHESIOLYSIS - LAPAROSCOP IC ROBOTIC Fibroids, intramural 01/20/2025 7:30 AM CDT Procedures Procedure Name Priority Date/Time Associated Diagnosis [...] R esult from Last 3 Months Insurance Care Teams Lean Manufacturing Leader Relationship Specialty [place] [address] [place] [address] PCP - General Internal Medicine 12/11/24 "
--- NOTE | 2025-01-04 14:20 | ED_ITS ---
HPI - Recheck/Abnormal Lab/Rx General Chief Complaint: Recheck/Abnormal Lab/Rx Stated Complaint: need blood transfusion Time Seen by Provider: 01/04/25 14:16 Source: patient Mode of arrival: ambulatory Limitations: no limitations History of Present Illness HPI narrative: Patient presents with concern for needing a blood transfusion. Her recovery engineer, Tess Nelson, had ordered labs which she had performed approximately 1 week ago. She states she was told on Monday either hemoglobin was 6 and she would require a blood transfusion. She states she has been experiencing some mild lightheadedness when she stands but otherwise has been asymptomatic example shortness of breath. For this reason, she continued to work throughout the week and presents to the emergency department today since she has the day off. She states this has happened before intracardiac blood transfusion, 2 units last year. She experiences Abnormal uterine bleeding and this has been felt to be the cause. She has not seen her primary care physician/provider, Josie Carcamo, in awhile, but does follow with her ObGyn, Dr Pacheco. She states she has been diagnosed with fibroids in his discussion with her Ob Gyne regarding further management/treatment for this. She sees her recovery engineer for known insulin-dependent diabetes mellitus and has next appointment as follow-up to be done in 2 months. Patient's last menstrual period was from December 19 to December 28. She states that her menstrual cycle is every 28 days and it is not unusual for her to have 7-10 days of menstrual bleeding which is also heavy. In regards to other etiologies, she denies any trauma/concern for internal bleeding. No hemoptysis, hematemesis. She denies any bloody stool. She is not currently having vaginal bleeding. Her last bowel movement was 2 days ago. She has been having some constipation. Has never had colonoscopy. She has been told to take iron pills but takes them sporadically. No iron infusion. No previous problems/reaction with blood transfusion. Related Data Home Medications Medication Instructions Recorded Confirmed Last Taken Type metformin 850 mg tablet 1,700 mg PO BIDWMEAL 04/26/24 04/26/24 04/26/24 History tirzepatide 2.5 mg/0.5 mL 7.5 mg subcut WEEKLY 04/26/24 04/26/24 04/26/24 History subcutaneous pen injector (Mounjaro) Allergies Allergy/AdvReac Type Severity Reaction Status Date / Time No Known Allergies Allergy Verified 04/26/24 10:09 [facility] Past Medical History Medical History Vitamin D deficiency PCOS (polycystic ovarian syndrome) Hypertension History of PCOS Uterine fibroid Menorrhagia with regular cycle Amenorrhea Routine health maintenance Anemia Diabetes Allergic rhinitis Surgical History Surgical History H/O cervical biopsy H/O dilation and curettage Family History Family History Father Diabetes mellitus Hypertension Grandparent Hypertension Diabetes mellitus Social History Social History Social History: The patient is and lives with her . They have no children. She denies any alcohol marijuana or illicit drugs. Her is a durable power employment attorney for healthcare. She works for [employer]. Code status full code Smoking status: Never smoker Second hand tobacco smoke exposure: No Alcohol intake: current Drinks per week: 1 Alcohol use details: wine Substance use: never Substance use type: does not use Living arrangements: with family Occupation/Education: occupation Gender identity (if verbalized by the patient): Female Sexual Orientation (if Verbalized by the Patient): Straight or Heterosexual Spiritual care concerns: No Agree to blood products: Yes Exam 2 Narrative: GENERAL: Well-appearing, well-nourished, and in no acute distress. HEAD: Normocephalic, atraumatic. EYES: Non injected, non icteric. Conjunctival pallor. ENT: Nares clear, no rhinorrhea or epistaxis. NECK: Supple. CHEST: Speaking in full sentences. No respiratory distress. Lungs clear to auscultation bilaterally without wheezes or crackles. HEART: Regular rate and rhythm. . ABDOMEN: Soft, nondistended. EXTREMITIES: Normal range of motion. No lower extremity edema. SKIN: Warm, dry, no rash. NEURO: No focal deficits. Alert and oriented x3. PSYCH: Normal mood and affect. Course Vital Signs Vital signs: Vital Signs Temperature 98.1 F 01/04/25 11:03 Pulse Rate 86 01/04/25 11:03 Respiratory Rate 18 01/04/25 11:03 Blood Pressure 120/72 01/04/25 11:03 Pulse Oximetry 100 01/04/25 11:03 Temperature 98.2 F 01/04/25 19:49 Pulse Rate 79 01/04/25 19:49 Respiratory Rate 18 01/04/25 19:49 Blood Pressure 118/70 01/04/25 19:49 Pulse Oximetry 100 01/04/25 19:49 MDM - Recheck/Abnormal Lab/Rx MDM Narrative Medical decision making narrative: Patient presents with concern for needing a blood transfusion. She has a history of long and heavy menstrual cycles with abnormal uterine bleeding felt to be due to fibroids for which she sees benefits sales consultant and is in discussion for further management. She has a history of anemia as a result of this and has required a blood transfusion previously. Routine labs were obtained within the past week, ordered by her recovery engineer and she was told on Monday that her hemoglobin was 6 and she would require a blood transfusion but she did delay presenting to the emergency department because she she states other than occasional lightheadedness when she stands she was asymptomatic and needed to work; presents today because off work today. In the emergency department they are afebrile with vital signs within normal limits. She has a microcytic anemia, 5.6. Also thrombocytosis although this is actually improved from previous. Blood product transfusion I have discussed the proposed blood product transfusion with the patient. I have informed the patient regarding potential risks of blood product transfusion which, though rare, include transfusion reaction, hepatitis, and HIV. The patient has been given the opportunity to ask questions about the need to be transfused and possible outcomes of not receiving this treatment. Patient has verbally agreed to undergo transfusion. Signed consent obtained and place it in the patient's chart. Order was placed for transfusion of 2 units of packed red blood cells. Pre transfusion labs were ordered. Patient was reassessed both as her 1st unit of blood was finishing up as well as when she was in the middle of receiving her 2nd unit. She continues to remain asymptomatic and without any complaints. Will defer obtaining repeat H&H but I did explain to the patient that this would be advised outpatient. Given her recovery engineer is not explicitly in our EMR system, unable to place an outpatient lab order under their name so advised that patient call recovery engineer versus OBGyn versus PCP to do so for follow up. I also prescribed iron supplementation. Lab Data Attestation: I reviewed the patient's lab results. 01/04/25 15:14 01/04/25 15:14 Labs: Lab Results 01/04/25 01/04/25 01/04/25 Range/Units 15:14 15:53 16:11 WBC 6.0 (4.5-10.0) K/mm3 RBC 3.83 L (4.2-5.4) M/mm3 Hgb 5.6 L* (12.0-15.0) g/dL Hct 22.8 L (37.0-47.0) % MCV 59.5 L (80-100) fl MCH 14.6 L (26-34) pg MCHC 24.6 L (32-36) g/dl RDW 21.3 H (11.5-14.5) % Plt Count 389 H (150-375) k/mm3 MPV 9.6 (7.4-10.4) fl Immature Gran % (Auto) 0.3 (0-0.5) % Neut % (Auto) 50.9 (45.5-73.1) % Lymph % (Auto) 36.5 (18.3-44.2) % Gibson % (Auto) 8.8 H (2.6-8.5) % Eos % (Auto) 3.0 (0-4.4) % Baso % (Auto) 0.5 (0.2-1.2) % Lymph # (Auto) 2.20 (0.9-3.2) K/mm3 Gibson # (Auto) 0.5 (0.1-0.6) K/mm3 Eos # (Auto) 0.2 (0-0.3) K/mm3 Baso # (Auto) 0.0 (0.0-0.1) K/mm3 Abs Immat Gran (auto) 0.02 (0.00-0.031) K/mm3 Absolute Neuts (auto) 3.1 (1.3-6.7) K/mm3 Absolute Nucleated RBC 0.000 (0.0-0.012) K/mm3 Band Neutrophils % Not Reportable Nucleated RBC % 0.0 (0.0-0.2) % Platelet Estimate Slightly increased (Adequate) % Immature Plt Fraction 3.8 (0.9-11.2) % Hypochromasia 2+ Anisocytosis 2+ Target Cells 1+ Schistocytes 1+ PT 15.1 H (11.1-14.7) Seconds INR 1.2 APTT 24.6 (22.3-36.8) Seconds Sodium 138 (137-145) mmol/L Potassium 4.2 (3.4-5.0) mmol/L Chloride 106 (98-107) mmol/L Carbon Dioxide 21 L (22-30) mmol/L Anion Gap 11 (4-12) mmol/L BUN 10 (7-17) mg/dL Creatinine 0.50 L (0.7-1.0) mg/dL Estim Creat Clear Calc 169 ml/min Estimated GFR > 60 (59 - ) Glucose 89 (65-110) mg/dL Calcium 8.7 (8.4-10.2) mg/dL Iron 16 L (37-170) ug/dL TIBC 491 H (261-462) ug/dL % Saturation 3 L (20-50) % Ferritin 3.79 L (6.24-137) ng/mL Blood Type AB Negative Antibody Screen Negative Crossmatch See Detail Discharge Plan Discharge Clinical Impression: Microcytic anemia, Thrombocytosis, Blood transfusion during current hospitalisation Patient Disposition: Home Condition: Stable Instructions: Antibiotic Form, Anemia (ED), Blood Transfusion (DC) Additional Instructions: Your hemoglobin was 5.6 and received 2 units of packed red blood cells for a blood transfusion while in the emergency department. Contact your recovery engineer/OBGYN/PCP to request an order for a repeat outpatient lab to check this lab in whatever time frame they would like (likely within the next week) to see if it is stable. Follow up with Dr Pacheco regarding the abnormal uterine bleeding that is being worked up which is presumably the cause of this chronic anemia. If you are unable to re-establish with your primary care physician since it has been awhile, the name of an alternative doctor is listed below. You are being prescribed iron supplementation for your anemia. It is just as efficacious to take this every other day with fewer GI side effects. It is best absorbed when taken with vitamin C so take this with orange juice, etc. Return to the emergency department with any new or worsening symptoms. Patient Language: Bulgarian Prescriptions: New ferrous sulfate 325 mg (65 mg iron) tablet 325 mg PO EVERY OTHER DAY 30 Days Qty: 15 0RF No Action metformin 850 mg Tablet 1,700 mg PO BIDWMEAL Mounjaro 2.5 mg/0.5 mL pen injector 7.5 mg SUBCUT WEEKLY Rx Instructions: on Fridays Follow-up/Referrals: Al Pacheco MD [Physician] - (OBGYN) UNKNOWN,DOCTOR [Non-Staff] - Nirali Copeland DO [Physician] - (primary care physician) Omar,Tess Ward MD [Non-Staff] - (recovery engineer) Stand Alone Forms: Work/School Release IP Time of Disposition: 18:45
--- OUTSIDE RECORDS SUMMARY | 2025-01-04 14:36 | XMS_ITS | Clinical Summary ---
Author Organization [facility] Address [address] [place] [address] Care Team Providers Care Business Account Manager Name Role Phone Unavailable Primary Care Provider Unavailabl e Source Comments [facility],non-owned Affiliates and Associated Physician Practices is amultiple site organization consisting of ambulatory clinics and hospital sitesin [place], [place], [place] and [place]. This disclosure is being madepursuant to the Care Everywhere program and may not contain all information available regarding this patient. Last updated 18.[facility] Dwllr Social History Tobacco Use Types Packs/Day Years [...] patient's age to complete this topic Insurance [facility]
--- OUTSIDE RECORDS SUMMARY | 2025-01-04 14:36 | XMS_ITS | Referral Summary ---
Author Organization [facility] Virtual Care Address [address] [place] [address] Phone Care Team Providers Care Concrete Plant Laborer Name Role Phone Tess Nelson MD Primary Care Provider [phone] Encounters Date Type Department Care Team Description 01/02/2025 1:20 PM CDT Telemedicine [facility] Reproductive Endocrinology [address] [place] [address] [place] [phone] Tess Coffey MD Intramural and submucous leiomyoma of uterus (Primary Dx) 12/25/2024 Telephone [facility] Virtual Care [address] [place] [address] Patsy Ponce MRI test results 12/24/2024 Patient Self-Triage [facility] Phys[facility] [address] [place], [place] [phone] Arabella, Generic Provider 12/23/2024 7:13 PM CDT - 12/23/2024 11:59 PM CDT Hospital Encounter [facility] [address] [place] [address] Fibroids Discharge Disposition: Discharge to home or self care 12/11/2024 Telephone [facility] Reproductive Endocrinology [address] [place] [phone] Estefanía Haskins/pauline to schedule surgery consult 12/10/2024 Orders Only [facility] Reproductive Endocrinology [address] [place] [phone] Tess Coffey MD Fibroids (Primary Dx) [...] Description 01/06/2025 1:24 PM CDT Hospital Encounter [facility] [address] [place] [address] 01/20/2025 7:30 AM CDT Hospital Encounter [facility] Operating Room [address] [place] [phone] Tess Coffey MD [address] [place] [address] 01/20/2025 7:30 AM CDT - 01/20/2025 11:30 AM CDT Surgery [facility] Operating Room [address] [place] [phone] Tess Coffey MD [address] [place] [id number] Robotic Assisted Laparoscopic Myomectomy with Chromopertubation Scheduled [...] it. Electronically signed by: Ashlee Hoff M.D. us Tess Coffey MD IMG MRI PROCEDURES Final R esult from Last 3 Months Insurance CIGNA CIGNA Care Teams Concrete Plant Laborer Relationship Specialty [place] [address] [place] [address] PCP - General Internal Medicine 12/11/24
--- OUTSIDE RECORDS SUMMARY | 2025-01-04 14:36 | XMS_ITS | Clinical Summary ---
Author Organization [facility] Address [address] [place] [address] Care Team Providers Care Dewaterer Operator Name Role Phone Unavailable Primary Care Provider Unavailabl e Allergies No known active allergies Medications tirzepatide (MOUNJARO SUBCUT) Inject by subcutaneous injection. Active metformin HCl (METFORMIN ORAL) Take by mouth. Activ e Active Problems No known active problems Encounters Date Type Department Care Team Description 12/03/2024 External Device Data ST[facility] ABSTRACTION Provider, Abstract 11/21/2024 Telephone [facility] Oncology and Hematology - [place] [address] [facility] [address] [place] [address] Sg Haro MD Labs not [...] Description 01/10/2025 1:15 PM CDT Office Visit [facility] Oncology and Hematology - [place] [address] [facility] [address] [place] [address] Sg Haro MD [address] [facility] [address] [place] [address] Health Maintenance Due Date Last [...] to complete this topic Insurance [facility] H[facility]
--- OUTSIDE RECORDS SUMMARY | 2025-01-04 14:36 | XMS_ITS | Clinical Summary ---
Author Organization [facility] Virtual Care Address [address] [place] [address] Phone Care Team Providers Care Bean Weigher Name Role Phone Tess Nelson MD Primary Care Provider [phone] Allergies No known active allergies Medications No known medications Active Problems Problem Noted Date Diagnosed Date Fibroids, intramural 01/02/2025 Encounters Date Type Department Care Team Description 01/02/2025 1:20 PM CDT Telemedicine [facility] Reproductive Endocrinology [address] [place] [phone] Tess Coffey MD Intramural and submucous leiomyoma of uterus (Primary Dx) 12/25/2024 Telephone [facility] Virtual Care [address] [place] [address] Pasty Ponce MRI test results 12/24/2024 Patient Self-Triage [facility] [address] [place] [address] Mychart, Generic Provider 12/23/2024 7:13 PM CDT - 12/23/2024 11:59 PM CDT Hospital Encounter [facility] [address] [place] [phone] Fibroids Discharge Disposition: Discharge to home or self care 12/11/2024 Telephone [facility] Reproductive Endocrinology [address] [place] [phone] Estefanía Haskins/pauline to schedule surgery consult 12/10/2024 Orders Only [facility] Reproductive Endocrinology [address] [place] [phone] Tess Coffey MD Fibroids (Primary Dx) from [...] Description 01/06/2025 1:24 PM CDT Hospital Encounter [address] [address] 01/20/2025 7:30 AM CDT Hospital Encounter [facility] Operating Room [address] [place] [phone] Tess Coffey MD [address] [place] [phone] 01/20/2025 7:30 AM CDT - 01/20/2025 11:30 AM CDT Surgery [facility] Operating Room [address] [place] [phone] Tess Coffey MD [address] [place] [phone] Robotic Assisted Laparoscopic Myomectomy with Chromopertubation Scheduled [...] R esult from Last 3 Months Insurance [email or web address] Care Teams Bean Weigher Relationship Specialty [place] [address] [place] [address] PCP - General Internal Medicine 12/11/24
[2025-01-04 15:26] LABS: Basophils Percent Auto 0.5 % (0.2-1.2); Eosinophils Absolute Auto 0.2 K/mm3 (0-0.3); Hematocrit 22.8 % (37.0-47.0); Immature Granulocyte Absolute 0.02 K/mm3 (0.00-0.031); Immature Granulocyte Percent A 0.3 % (0-0.5); Immature Platelet Fraction Pct 3.8 % (0.9-11.2); Lymphocytes Percent Auto 36.5 % (18.3-44.2); Mean Corpuscular HGB Conc 24.6 g/dl (32-36); Mean Corpuscular Hemoglobin 14.6 pg (26-34); Mean Corpuscular Volume 59.5 fl (80-100); Mean Platelet Volume 9.6 fl (7.4-10.4); Monocytes Absolute Auto 0.5 K/mm3 (0.1-0.6); Monocytes Percent Auto 8.8 % (2.6-8.5); Neutrophils Absolute Auto 3.1 K/mm3 (1.3-6.7); Neutrophils Percent Auto 50.9 % (45.5-73.1); Platelet Count Result 389 k/mm3 (150-375); Red Blood Count 3.83 M/mm3 (4.2-5.4); Red Cell Distribution Width 21.3 % (11.5-14.5)
[2025-01-04 15:29] LABS: Anion Gap 11 mmol/L (4-12); Blood Urea Nitrogen 10 mg/dL (7-17); Calcium 8.7 mg/dL (8.4-10.2); Carbon Dioxide 21 mmol/L (22-30); Chloride 106 mmol/L (98-107); Estimated CRCL calculation 169 ml/min; Estimated Glomerular Filt Rate > 60; Glucose 89 mg/dL (65-110); Potassium 4.2 mmol/L (3.4-5.0); Sodium 138 mmol/L (137-145)
[2025-01-04 15:34] LABS: Hemoglobin 5.6 g/dL (12.0-15.0)
[2025-01-04 15:43] LABS: Platelet Estimate Slightly Increased (Adequate)
[2025-01-04 15:51] LABS: Anisocytosis 2+; Hypochromasia 2+
[2025-01-04 15:52] LABS: Schistocytes 1+; Target Cells 1+
[2025-01-04 16:06] LABS: Iron 16 ug/dL (37-170)
[2025-01-04 16:15] LABS: Percent Iron Saturation 3 % (20-50)
[2025-01-04 16:39] LABS: INR 1.2; Prothrombin Time 15.1 Seconds (11.1-14.7)
[2025-01-04 16:40] LABS: Partial Thromboplastin Time 24.6 Seconds (22.3-36.8)
[2025-01-04] MEDS: SODIUM CHLORIDE 0.9% IV 250 ML 30 ML IV CONT (16:40)
[2025-01-04 16:43] LABS: Ferritin 3.79 ng/mL (6.24-137)
== END 2025-01-04 20:00 | disposition home or self-care (01) ==
PROVIDERS: Emergency Provider Student in an Organized Health Care Education/Training Program; PCP Physician Assistant Medical
DX: D50.9 Iron deficiency anemia, unspecified (principal); D75.839 Thrombocytosis, unspecified; E11.9 Type 2 diabetes mellitus without complications; Z79.4 Long term (current) use of insulin; E55.9 Vitamin D deficiency, unspecified; I10 Essential (primary) hypertension
CPT/HCPCS: 36415; 36430; 80048; 82728; 83540; 83550; 85025; 85055; 85610; 85730; 86850; 86900; 86901; 86923; 96360; 96361; 99285; J7050; P9016

== ENCOUNTER 2025-02-18 08:44 | Emergency (ER) | payer OTHER, SELFPAY ==
--- OUTSIDE RECORDS SUMMARY | 2025-02-18 08:47 | XMS_ITS ---
Author Organization [facility] Address [address] [facility] [place] [address] Care Team Providers Care Lending Activities Supervisor Name Role Phone Tess Nelson Primary Care Provider REASON FOR VISIT 2 MONTH F/U LUCERO Encounters Encounter Location Date Provider Diagnosis Between & DIAGNOSTIC, [facility] - Tess Nelson [address] [place] [address] 10/28/2024 Tess Nelson Plan Of Treatment No Information Progress Notes * Allen JAMESB:1990 (34 yo F)Acc No.[id number]:10/28/2024 Progress Notes Patient: Rosemary INMAN Provider: Chance Nelson MD :1990 A ge:34 Y S ex:Female Date:10/28/2024 Address[place] [facility] Subjective: * Chief Complaints: * 1 . 2 MONTH F/U LUCERO. * Medical History: Objective: * Vitals: Assessment: Plan: * Treatment: * Billing Information: * Visit Code: * Procedure Codes: * Electronic signature of Ronaldo Nelson MD on 02/18/2025 at 08:47 AM CDT Sign off status: Pending * Provider: Chance Nelson MD Date: 10/28/2024 Generated for Fran gilmore/Naif/eTransmitting on: 02/18/2025 08:47 AM CDT
--- OUTSIDE RECORDS SUMMARY | 2025-02-18 08:47 | XMS_ITS | Referral Summary ---
Author Organization [facility] Virtual Care Address [address] [place] [address] Phone Care Team Providers Care Retail Account Representative Name Role Phone Tess Nelson MD Primary Care Provider [phone] Encounters Date Type Department Care Team Description 01/31/2025 Orders Only [facility] Reproductive Endocrinology [address] [facility] [address] [place] [phone] Tess Coffey MD Encounter for blood typing (Primary Dx) 01/30/2025 Orders Only [facility] Reproductive Endocrinology [address] [phone] Tess Coffey MD Iron deficiency (Primary Dx) 01/30/2025 Orders Only [facility] Reproductive Endocrinology [address] [phone] Tess Coffey MD 01/30/2025 Orders Only [facility] Reproductive Endocrinology [address] [phone] Tess Coffey MD 01/30/2025 Orders Only [facility] Reproductive Endocrinology [address] [phone] Tess Coffey MD 01/09/2025 11:59 PM CDT Anesthesia Event [facility] Operating Room [address] [place] [address] Sydney Marvin NP 01/16/2025 1:30 PM CDT Infusion [facility] [address] [facility] 7th [place] [address] Fibroids, intramural (Primary Dx); Iron deficiency anemia due to chronic blood loss 01/14/2025 Telephone [facility] Special[facility]fusion [facility] [address] [facility] [address] [place] [address] Julisa Llanos RN 01/09/2025 Orders Only [facility] Reproductive Endocrinology [address] [phone] Herlinda Esposito MD 01/09/2025 Orders Only [facility] Rep[facility]ductive Endocrinology [address] [phone] Herlinda Esposito MD 01/09/2025 Orders Only [facility] [address] [place] [phone] Rosalee Mccord RN 01/09/2025 Orders Only [facility] [address] [place] [phone] Rosalee Mccord RN 01/09/2025 2:30 PM CDT Pre-Admission Testing [facility] Pre Anesthesia Testing [address] [place] [address] Preop testing (Primary Dx) 01/08/2025 Orders Only [facility] Reproductive Endocrinology [address] [phone] Tess Coffey MD 01/08/2025 Orders Only [facility] Reproductive Endocrinology [address] [phone] Fanta Cantrell, ANTONIA 01/08/2025 Telephone [facility] Reproductive Endocrinology [address] [place] [phone] Fanta Cantrell, RN PA for Iron Infusion and IV Dextran 01/07/2025 Orders Only [facility] Reproductive Endocrinology [address] [phone] Tess Coffey MD Iron deficiency anemia, unspecified iron deficiency anemia type (Primary Dx) 01/07/2025 Orders Only [facility] Rep[facility]ductive Endocrinology [address] [place] [phone] Tess Coffey MD 01/07/2025 Orders Only [facility] Rep[facility]ductive Endocr[facility]ology [address] [place] [phone] Herlinda Esposito MD Intramural and submucous leiomyoma of uterus (Primary Dx); Fibroids, intramural; Iron deficiency anemia due to chronic blood loss 01/07/2025 Results Follow-Up [facility] Reproductive Endocrinology [address] [place] [phone] Tess Coffey MD Type and screen, CBC with auto differential, Differential, auto 01/07/2025 Telephone [facility] Pre Anesthesia Testing [address] [place] [phone] Luz Maria Moore 01/06/2025 Telephone [facility] Pre Anesthesia Testing [address] [place] [phone] Luz Maria Moore 01/06/2025 2:30 PM CDT Clinical Support [facility] Reproductive Endocrinology Lab [address] [place] [phone] Encounter for blood typing (Primary Dx) 01/06/2025 2:40 PM CDT Office Visit [facility] Reproductive Endocrinology [address] [place] [phone] Tess Coffey MD Fibroids, intramural (Primary Dx) 01/06/2025 1:24 PM CDT - 01/06/2025 11:59 PM CDT Hospital Encounter [address] [phone] Encounter for blood typing Discharge Disposition: Discharge to home or self care 01/02/2025 1:20 PM CDT Telemedicine [facility] Reproductive Endocrinology [address] [place] [phone] Tess Coffey MD Intramural and submucous leiomyoma of uterus (Primary Dx) 12/25/2024 Telephone [facility] Virtual Care [address] [place] [address] Patsy Ponce MRI test results 12/24/2024 Patient Self-Triage [facility] [address] [place] [address] Mychart, Generic Provider 12/23/2024 7:13 PM CDT - 12/23/2024 11:59 PM CDT Hospital Encounter [facility] [address] [place] [phone] Fibroids Discharge Disposition: Discharge to home or self care 12/11/2024 Telephone [facility] Reproductive Endocrinology [address] [phone] Estefanía Haskins/looking to schedule surgery consult 12/10/2024 Orders Only [facility] Reproductive Endocrinology [address] [facility] [address] [place] [phone] Tess Coffey MD Fibroids (Primary Dx) from Last 3 Months Allergies No known active allergies Medications tirzepatide (Mounjaro) 15 mg/0.5 mL pen injector injectionIndica tions:type 2 diabetes mellitus Inject 0.5 mL (15 mg total) under the skin every 7 days Saturdays, last dose as of SEC visit was 01/04/25 Active metFORMIN (FORTAMET) 500 mg 24 hr tablet Take 2 tablets (1,000 mg total) by mouth 2 (two) times a day with meals Active ferrous sulfate 325 mg (65 mg of elemental iron) tabletIndicatio ns:Iron Deficiency Anemia Take 1 tablet (325 mg total) by mouth daily with breakfast Active Active Problems Problem Noted Date Diagnosed Date Iron deficiency anemia 01/07/2025 Fibroids, intramural 01/02/2025 Social History Tobacco Use Types Packs/Day Years Used Date Smoking Tobacco: Never Smokeless Tobacco: Never Tobacco Cessation:Counseling Given: Not Answered AUDIT-C Answer Date Recorded Q1: How often do you have a drink containing alcohol? Never 01/09/2025 Q2: How many drinks containi ng alcohol do you have on a typical day when you are drinking? Patient does not drink Q3: How often do you have si x or more drinks on one occasion? Never 01/09/2025 Hunger Vital Sign Answer Date Recorded Within the past 12 months, y ou worried that your food would run out before you got the money to buy more. Never true 01/17/20 25 Within the past 12 months, t he food you bought just didn't last and you didn't have money to get more. Never true 01/16/2025 Personal Safety Answer Date Recorded Have you ever been in or are you currently in a harmful physical or emotional relationship or is someone making you feel afraid or unsafe? Denies 01/16/2025 Comments Unknown Sex and Gender Information Value Date Recorded Sex Assigned at Not on file Legal Sex Female 3:14 PM CDT Gender Identity Not on file Sexual Orientation Not on file Last Filed Vital Signs Vital Sign Reading Time Taken Comments Blood Pressure 134/85 01/16/2025 3:50 PM CDT Pulse 88 01/16/2025 3:50 PM CDT Temperature 36.6 C (97.8 F) 01/16/2025 1:40 PM CDT Respiratory Rate 18 01/16/2025 1:40 PM CDT Oxygen Saturation 100% 01/16/2025 3:50 PM CDT Inhaled Oxygen Concentration - - Weight 106.5 kg (234 lb 12.8 oz) 01/16/2025 1:37 PM CDT Height 170.2 cm (5' 7) 01/16/2025 1:37 PM CDT Body Mass Index 36.77 01/16/2025 1:37 PM CDT Plan of Treatment Upcoming Encounters Date Type Department Care Team (Latest Contact Info) Description 02/24/2025 12:00 PM CDT Hospital Encounter [facility] Operating Room [address] [place] [phone] Tess Coffey MD [address] [facility] [address] [place] [address] 02/24/2025 12:00 PM CDT - 02/24/2025 4:00 PM CDT Surgery [facility] Operating Room [address] [facility] [place] [address] Tess Coffey MD [address] [facility] [address] [place], [place] [phone] Cell [employer]!! Robotic Assisted Myomectomy with Chromopertubation Scheduled Procedures Name Priority Associated Diagnoses Date/Ti me MYOMECTOMY - ROBOTIC ASSISTED Fibroids, intramural 02/24/2025 12:00 PM CDT Procedures Procedure Name Priority Date/Time Associated Diagnosis Comments CBC WITH AUTO DIFFERENTIAL Routine 01/31/2025 1:50 PM CDT Encounter for blood typing IRON PROFILE W/ IBC Routine 01/30/2025 9 :49 AM CDT Iron deficiency IRON PROFILE W/ IBC Routine 01/10/2025 7 :11 AM CDT Iron deficiency anemia, unspecified iron deficiency anemia type EGFR Routine 01/09/2025 4:39 PM CDT Preop testing BASIC METABOLIC PANEL Routine 01/09/2025 4:39 PM CDT Preop testing ECG 12-LEAD Routine 01/09/2025 3:40 PM CDT Preop testing BLOOD SMEAR REVIEW Routine 01/09/2025 3: 29 PM CDT Preop testing DIFFERENTIAL AUTO Routine 01/09/2025 3:2 9 PM CDT Preop testing CBC WITH AUTO DIFFERENTIAL Routine 01/09/2025 3:29 PM CDT Preop testing HEMOGLOBIN A1C Routine 01/09/2025 3:29 PM CDT Preop testing TYPE AND SCREEN Routine 01/09/2025 3:28 PM CDT Preop testing TYPE AND SCREEN Timed 01/06/2025 2:58 PM CDT Encounter for blood typing DIFFERENTIAL AUTO Routine 01/06/2025 2:5 7 PM CDT Encounter for blood typing CBC WITH AUTO DIFFERENTIAL Routine 01/06/2025 2:57 PM CDT Encounter for blood typing MRI PELVIS W WO CONTRAST Schedule Routine, Read Routine (OP Routine) 12/23/2024 8:18 PM CDT Fibroids from Last 3 Months Results * (ABNORMAL) CBC with auto differential (01/31/2025 1:50 PM CDT) WBC 7.8 3.8 - 10.8 Thousand/u L [facility] RBC, POC 4.45 3.80 - 5.10 Million/uL [facility] Hgb 8.7(L) 11.7 - 15.5 g/dL [facility] Hct 32.6(L) 35.0 - 45.0 % [facility] MCV 73.3(L) 80.0 - 100.0 fL [facility] MCH 19.6(L) 27.0 - 33.0 pg [facility] MCHC 26.7(L) 32.0 - 36.0 g/dL [facility] Comment: For adults, a slight decrease in the calculated MCHC value (in the range of 30 to 32 g/dL) is most likely not clinically significant; however, it should be interpreted with caution in correlation with other red cell parameters and the patient's clinical condition. Rdw 28.9(H) 11.0 - 15.0 % [facility] Platelets 516(H) 140 - 400 Thousand/u L [facility] MPV 7.5 - 12.5 fL [facility] Comment: Due to platelet or RBC variability in size or shape the result cannot be reported accurately. Neutrophils, abs 5,109 1,500 - 7,800 cells/uL [facility] Lymphocytes, abs 2,005 850 - 3,900 cells/uL [facility] Monocyte abs 577 200 - 950 cells/uL [facility] Eosinophils, abs 62 15 - 500 cells/uL [facility] Basophils, abs 47 0 - 200 cells/uL [facility] Neutrophils 65.5 % [facility] Lymphocyte pct 25.7 % [facility] Monocytes 7.4 % [facility] Eosinophils 0.8 % [facility] Basophils 0.6 % [facility] Comment [facility] Comment: Anisocytosis 3 + Hypochromasia 1 + Ovalocytes 1 + Acanthocytes 1 + Review of peripheral smear confirms automated results. Blood 01/31/2025 1:50 PM CDT 01/31/2025 1:50 PM CDT us Tess Coffey MD LAB BLOOD ORDERABLES Final Result Performing Organization Address [facility] Co de Phone Number [facility] [address] [place] [address] * (ABNORMAL) Iron profile w/ IBC (01/30/2025 9:49 AM CDT) Iron 26(L) 40 - 190 mcg/dL [facility] TIBC 384 250 - 450 mcg/dL (calc) [facility] Iron saturation 7(L) 16 - 45 % (calc) [facility] Blood 01/30/2025 9:49 AM CDT 01/30/2025 9:50 AM CDT us Tess Coffey MD LAB BLOOD ORDERABLES Final Result Performing Organization Address City/[facility] Co de Phone Number [facility] [address] [place] [address] * (ABNORMAL) Iron profile w/ IBC (01/10/2025 7:11 AM CDT) Iron 11(L) 40 - 190 mcg/dL [facility] TIBC 466(H) 250 - 450 mcg/dL (calc) [facility] Iron saturation 2(L) 16 - 45 % (calc) [facility] Blood 01/10/2025 7:11 AM CDT 01/10/2025 7:11 AM CDT us Tess Cofefy MD LAB BLOOD ORDERABLES Final Result [facility] [address] [address] [phone] * eGFR (01/09/2025 4:39 PM CDT) eGFR >90 >=60 mL/min/1. 73 m2 Comment: Interpretive Data Reference Interval Normal >/= 90 mL/min/1.73m2 Mildly decreased* 60 - 89 mL/min/1.73m2 Mildly to moderately decreased 45 - 59 mL/min/1.73m2 Moderately to severely decreased 30 - 44 mL/min/1.73m2 Severely decreased 15 - 29 mL/min/1.73m2 Kidney Failure < 15 mL/min/1.73m2 *Relative to young adult level Estimated glomerular filtration rate is determined by the 2020 CKD-EPI equation recommended by the National Kidney Foundation (A Unifying Approach to GFR Estimation: Recommendations of the NKF-ASK Task Force on Reassessing the Inclusion of Race in Diagnosing Kidney Disease, JASN 2020). The CKD-EPI equation should not be used for patients with unstable renal function and has not been validated in children and those over 70. Current interpretive data was last reviewed 2021. Blood 01/09/2025 4:39 PM CDT 01/09/2025 4:39 PM CDT us Sydney Marvin NP LAB BLOOD ORDERABLES Final Result [facility] [address] Department [place] [address] * Basic metabolic panel (01/09/2025 4:39 PM CDT) Sodium 140 135 - 145 mmol/L Potassium, pl 4.2 3.3 - 4.9 mmol/L [facility] Chloride 106 97 - 110 mmol/L [facility] CO2 22 22 - 32 mmol/L [facility] Anion gap 12 2 - 15 mmol/L [facility] BUN 9 6 - 25 mg/dL [facility] Creatinine 0.62 0.60 - 1.10 mg/dL [facility] Glucose 111 70 - 199 mg/dL [facility] Comment: Interpretive Data Fasting glucose >/= 126 mg/dl is diagnostic for diabetes. Fasting is defined as no caloric intake for at least 8 hours. Fasting glucose between 100 mg/dl to 125 mg/dl is diagnostic of prediabetes. In a patient with classic symptoms of hyperglycemia or hyperglycemic crisis, a random glucose >/= 200 mg/dl is diagnostic for diabetes. In the absence of unequivocal hyperglycemia, results should be confirmed by repeat testing. The classification and Diagnosis of Diabetes Diabetes Care 2021; 46: S19-S40. Current interpretive data was last revised 2022. Calcium 9.3 8.5 - 10.3 mg/dL [facility] Blood 01/09/2025 4:39 PM CDT 01/09/2025 4:39 PM CDT us Sydney Marvin SIGNAL TOWER DIRECTOR LAB BLOOD ORDERABLES Final Result [facility] [address] Department [place] [address] * ECG 12 lead (01/09/2025 3:40 PM CDT) 01/09/2025 3:40 PM CDT Narrative [facility] - 01/09/2025 7:54 PM CDT Vent Rate: 92 bpm RR Interval: 650 msec MT Interval: 145 msec QRS Duration: 83 msec QT Interval: 332 msec QTC Interval: 382 msec P-R-T Valentine: -2 - 46 - 10 degrees IMPRESSION: SINUS RHYTHM NORMAL ECG Electronically Signed By: Guilherme Price [facility] Card Sydney Marvin SIGNAL TOWER DIRECTOR ECG ORDERABLES Germania l Result [facility] * (ABNORMAL) Blood smear review (01/09/2025 3:29 PM CDT) [facility] RBC morphology Present(A) Hypochromasia 3-7/HPF(A) [facility] Anisocytosis Slight(A) [facility] Poikilocytosis Slight(A) [facility] Microcytes 3-7/HPF(A) [facility] Elliptocytes 3-7/HPF(A) [facility] Platelet estimate Adequate [facility] Morphology scrn See Comment [facility] Comment:PLT: Automated count confirmed by smear review Platelet morphology normal Blood 01/09/2025 3:29 PM CDT 01/09/2025 3:29 PM CDT Sydney Marvin NP LAB BLOOD ORDERABLES Final Result Performing Organization Address City/[facility]/ZIP Co de Phone Number [facility] [address] Department [place] [address] * Differential, auto (01/09/2025 3:29 PM CDT) [facility] Neutrophil abs 6.30 1.50 - 6.50 K/cumm Imm gran abs 0.02 0.00 - 0.10 K/cumm [facility] Lymphocyte abs 1.72 0.80 - 3.30 K/cumm [facility] Monocyte abs 0.56 0.20 - 0.80 K/cumm [facility] Eosinophil abs 0.09 0.00 - 0.50 K/cumm [facility] Basophil abs 0.05 0.00 - 0.10 K/cumm [facility] Neutrophil pct 72.1 % [facility] Comment: Interpretive Data Percent cell count reference ranges are not reported, since discordance with absolute values may lead to misinterpretation of CBC data. Current Interpretive Data was last revised on 2017. Imm gran pct 0.2 % [facility] Comment: Interpretive Data Percent cell count reference ranges are not reported, since discordance with absolute values may lead to misinterpretation of CBC data. Current Interpretive Data was last revised on 2017. Lymphocyte pct 19.7 % [facility] Comment: Interpretive Data Percent cell count reference ranges are not reported, since discordance with absolute values may lead to misinterpretation of CBC data. Current Interpretive Data was last revised on 2017. Monocyte pct 6.4 % [facility] Comment: Interpretive Data Percent cell count reference ranges are not reported, since discordance with absolute values may lead to misinterpretation of CBC data. Current Interpretive Data was last revised on 2017. Eosinophil pct 1.0 % [facility] Comment: Interpretive Data Percent cell count reference ranges are not reported, since discordance with absolute values may lead to misinterpretation of CBC data. Current Interpretive Data was last revised on 2017. Basophil pct 0.6 % [facility] Comment: Interpretive Data Percent cell count reference ranges are not reported, since discordance with absolute values may lead to misinterpretation of CBC data. Current Interpretive Data was last revised on 2017. Blood 01/09/2025 3:29 PM CDT 01/09/2025 3:29 PM CDT Sydney Marvin SIGNAL TOWER DIRECTOR LAB BLOOD ORDERABLES Final Result [facility] [address] Department [place] [address] * (ABNORMAL) CBC with auto differential (01/09/2025 3:29 PM CDT) WBC 8.74 3.80 - 9.90 K/cumm Hgb 7.0(L) 11.9 - 15.5 g/dL [facility] Hct 26.0(L) 35.6 - 45.5 % [facility] Plt 451(H) 150 - 400 K/cumm [facility] MPV 8.9(L) 9.1 - 12.3 fL [facility] RBC 4.19 3.90 - 5.20 M/cumm [facility] MCV 62.1(L) 81.3 - 96.4 fL [facility] MCH 16.7(L) 27.1 - 33.3 pg [facility] MCHC 26.9(L) 32.3 - 35.7 g/dL [facility] RDW CV 24.7(H) 11.1 - 14.9 % [facility] RDW SD 53.1(H) 35.7 - 48.1 fL [facility] NRBC abs 0.00 0.00 - 0.01 K/cumm [facility] Blood 01/09/2025 3:29 PM CDT 01/09/2025 3:29 PM CDT Sydney Marvin NP LAB BLOOD ORDERABLES Final Result Performing Organization Address [facility] de Phone Number [facility] [address] [place] [address] * Hemoglobin A1c (01/09/2025 3:29 PM CDT) Pathologist [facility] Hgb A1C 5.1 4.0 - 5.6 % Estimated Average Glucose 100 mg/dL [facility] Comment: The ADA recommends reporting an estimated Average Glucose (eAG) with all Hemoglobin A1c results using the equation derived from a study of 507 normal and diabetic adults. Minority populations were underrepresented and children were not included. (Diabetes Care 31:3857-8703, 2008). The eAG is not equivalent to a fasting glucose. Blood 01/09/2025 3:29 PM CDT 01/09/2025 3:29 PM CDT Sydney Marvin NP LAB BLOOD ORDERABLES Final Result Performing Organization Address City/[facility]/ZIP Co de Phone Number [facility] [address] [facility] [employer] [place], [place] [id number] * Type and screen (01/09/2025 3:28 PM CDT) Pathologist [facility] ABO Rh AB Negative Ashley, indirect Negative [facility] Blood 01/09/2025 3:28 PM CDT 01/09/2025 3:34 PM CDT [facility] - 01/09/2025 4:15 PM CDT Is this test being ordered in advance for a procedure?->Yes Expected date of procedure:->01/20/25 Has the patient been transfused in the past 3 months?->No Has the patient been in the past 3 months?->No Sydney Marvin NP LAB BLOOD BANK TEST ORDERABLES Final Result [facility] [address] Department [place] [place] [address] * Type and screen (01/06/2025 2:58 PM CDT) Pathologist [facility] ABO Rh AB Negative Ashley, indirect Negative [facility] Blood 01/06/2025 2:58 PM CDT 01/06/2025 8:26 PM CDT Narrative [facility] - 01/06/2025 9:43 PM CDT Has the patient had Daratumumab or Isatuximab in the past 6 months?->Unknown Tess Coffey MD LAB BLOOD BANK TEST ORDERA BLES Final Result [facility] Department [place] [address] * Differential, auto (01/06/2025 2:57 PM CDT) Neutrophil abs 5.19 1.50 - 6.50 K/cumm Imm gran abs 0.03 0.00 - 0.10 K/cumm [facility] Lymphocyte abs 2.12 0.80 - 3.30 K/cumm [facility] Monocyte abs 0.62 0.20 - 0.80 K/cumm [facility] Eosinophil abs 0.13 0.00 - 0.50 K/cumm [facility] Basophil abs 0.05 0.00 - 0.10 K/cumm [facility] Neutrophil pct 63.8 % [facility] Comment: Interpretive Data Percent cell count reference ranges are not reported, since discordance with absolute values may lead to misinterpretation of CBC data. Current Interpretive Data was last revised on 2017. Imm gran pct 0.4 % [facility] Comment: Interpretive Data Percent cell count reference ranges are not reported, since discordance with absolute values may lead to misinterpretation of CBC data. Current Interpretive Data was last revised on 2017. Lymphocyte pct 26.0 % [facility] Comment: Interpretive Data Percent cell count reference ranges are not reported, since discordance with absolute values may lead to misinterpretation of CBC data. Current Interpretive Data was last revised on 2017. Monocyte pct 7.6 % [facility] Comment: Interpretive Data Percent cell count reference ranges are not reported, since discordance with absolute values may lead to misinterpretation of CBC data. Current Interpretive Data was last revised on 2017. Eosinophil pct 1.6 % [facility] Comment: Interpretive Data Percent cell count reference ranges are not reported, since discordance with absolute values may lead to misinterpretation of CBC data. Current Interpretive Data was last revised on 2017. Basophil pct 0.6 % [facility] Comment: Interpretive Data Percent cell count reference ranges are not reported, since discordance with absolute values may lead to misinterpretation of CBC data. Current Interpretive Data was last revised on 2017. Blood 01/06/2025 2:57 PM CDT 01/06/2025 5:32 PM CDT us Tess Coffey MD LAB BLOOD ORDERABLES Final Result [facility] Department of Laboratories [place], [place] [id number] * (ABNORMAL) CBC with auto differential (01/06/2025 2:57 PM CDT) WBC 8.14 3.80 - 9.90 K/cumm Hgb 7.0(L) 11.9 - 15.5 g/dL [facility] Hct 25.4(L) 35.6 - 45.5 % [facility] Plt 524(H) 150 - 400 K/cumm [facility] MPV 9.0(L) 9.1 - 12.3 fL [facility] RBC 4.18 3.90 - 5.20 M/cumm [facility] MCV 60.8(L) 81.3 - 96.4 fL [facility] MCH 16.7(L) 27.1 - 33.3 pg [facility] MCHC 27.6(L) 32.3 - 35.7 g/dL [facility] RDW CV 24.2(H) 11.1 - 14.9 % [facility] RDW SD 50.5(H) 35.7 - 48.1 fL [facility] NRBC abs 0.00 0.00 - 0.01 K/cumm [facility] Blood 01/06/2025 2:57 PM CDT 01/06/2025 5:32 PM CDT us Tess Coffey MD LAB BLOOD ORDERABLES Final Result [facility] Department [place] [address] * MRI Pelvis W WO Contrast (12/23/2024 [...] R esult from Last 3 Months Insurance [employer] Care Teams Retail Account Representative Relationship Specialty [place] [address] [place] [address] PCP - General Internal Medicine 12/11/24
--- OUTSIDE RECORDS SUMMARY | 2025-02-18 08:47 | XMS_ITS | Clinical Summary ---
Author Organization [facility] Virtual Care Address [address] [place] [address] Phone Care Team Providers Care Larry Car Operator Name Role Phone Tess Nelson MD Primary Care Provider [phone] Allergies No known active allergies Medications tirzepatide [...] Iron deficiency anemia 01/07/2025 Fibroids, intramural 01/02/2025 Encounters Date Type Department Care Team Description 01/31/2025 Orders Only [facility] Reproductive Endocrinology [address] [phone] Tess Coffey MD Encounter for blood typing (Primary Dx) 01/30/2025 Orders Only [facility] Reproductive Endocrinology [address] [phone] Tess Coffey MD Iron deficiency (Primary Dx) 01/30/2025 Orders Only [facility] Reproductive Endocrinology [address] [phone] Tess Coffey MD 01/30/2025 Orders Only [facility] Reproductive Endocrinology [address] [place] [phone] Tess Coffey MD 01/30/2025 Orders Only [facility] Reproductive Endocrinology [address] [place] [phone] Tess Coffey MD 01/16/2025 1:30 PM CDT Infusion [facility] Specialty Infusion Center [address] [place] [phone] Fibroids, intramural (Primary Dx); Iron deficiency anemia due to chronic blood loss 01/14/2025 Telephone [facility] Infusion Center [address] [phone] Julisa Llanos RN 01/09/2025 11:59 PM CDT Anesthesia Event [facility] Operating Room [address] [place] [phone] Sydney Marvin NP 01/09/2025 2:30 PM CDT Pre-Admission Testing [facility] Pre Anesthesia Testing [address] [place] [phone] Preop testing (Primary Dx) 01/09/2025 [facility] [address] [place] [phone] Herlinda Esposito MD 01/09/2025 Orders Only [facility] [address] [place] [phone] Herlinda Esposito MD 01/09/2025 Orders Only [facility] Outpatient Infusion Center [address] [place] [phone] Rosalee Mccord RN 01/09/2025 Orders Only [facility] Outpatient [facility]fusion Center [address] [place], [place] [address] [address] [phone] Rosalee Mccord, ANTONIA 01/08/2025 Orders Only [facility] Reproductive Endocrinology [address] [place] [phone] Tess Coffey MD 01/08/2025 Orders Only [facility] Reproductive Endocrinology [address] [place] [phone] Fanta Cantrell RN 01/08/2025 Telephone [facility] Reproductive Endocrinology [address] [place] [phone] Fanta Cantrell, RN PA for Iron Infusion and IV Dextran 01/07/2025 Orders Only [facility] Reproductive Endocrinology [address] [place] [phone] Tess Coffey MD Iron deficiency anemia, unspecified iron deficiency anemia type (Primary Dx) 01/07/2025 Orders Only [facility] Reproductive Endocrinology [address] [place] [phone] Tess Coffey MD 01/07/2025 Orders Only [facility] Reproductive Endocrinology [address] [place] [phone] Herlinda Esposito MD Intramural and submucous leiomyoma of uterus (Primary Dx); Fibroids, intramural; Iron deficiency anemia due to chronic blood loss 01/07/2025 Results Follow-Up [facility] Reproductive Endocrinology [address] [place] [phone] Tess Coffey MD Type and screen, CBC with auto differential, Differential, auto 01/07/2025 Telephone [facility] Pre Anesthesia Testing [address] [place] [address] Luz Maria Moore 01/06/2025 2:40 PM CDT Office Visit [facility] Reproductive Endocrinology [address] [place] [phone] Tess Coffey MD Fibroids, intramural (Primary Dx) 01/06/2025 2:30 PM CDT Clinical Support [facility] Reproductive Endocrinology Lab [address] [place] [phone] Encounter for blood typing (Primary Dx) 01/06/2025 1:24 PM CDT - 01/06/2025 11:59 PM CDT Hospital Encounter [facility] [address] [place] [address] Encounter for blood typing Discharge Disposition: Discharge to home or self care 01/06/2025 Telephone [facility] Pre Anesthesia Testing [address] [place] [phone] Luz Maria Moore 01/02/2025 1:20 PM CDT Telemedicine [facility] Reproductive Endocrinology [address] [place] [phone] Tess Coffey MD Intramural and submucous leiomyoma of uterus (Primary Dx) 12/25/2024 Telephone [facility] Virtual Care [address] [place] [phone] Patsy Ponce MRI test results 12/24/2024 Patient Self-Triage [facility] [address] [place] [address] Virgilt, Generic Provider 12/23/2024 7:13 PM CDT - 12/23/2024 11:59 PM CDT Hospital Encounter [facility] [address] [place] [address] Fibroids Discharge Disposition: Discharge to home or self care 12/11/2024 Telephone [facility] Reproductive Endocrinology [address] [place] [phone] Estefanía Haskins/pauline to schedule surgery consult 12/10/2024 Orders Only [facility] Reproductive Endocrinology [address] [place] [phone] Tess Coffey MD Fibroids (Primary Dx) from Last 3 Months Surgical History Surgery Date Site/Laterality Comments DILATION AND CURETTAGE OF UTERUS 01/19/2021 - 02/17/2021 HYSTERECTOMY 08/21/2022 - 08/20/2023 Medical History Medical History Date Comments Diabetes mellitus (HCC) 10/2019 HTN (hypertension) Obesity Iron deficiency anemia Family History Medical History Relation Name Comments Diabetes Father Brandin Relation Name Status Comments Father Brandin Social History Tobacco Use Types Packs/Day Years [...] on file Sexual Orientation Not on file Obstetrics History Last Filed Vital Signs Vital Sign Reading [...] Description 02/24/2025 12:00 PM CDT Hospital Encounter [facility] Operating Room [facility] [place] [address] Tess Coffey MD [address] [phone] 02/24/2025 12:00 PM CDT - 02/24/2025 4:00 PM CDT Surgery [facility] Operating Room [facility] [place] [phone] Tess Coffey MD [address] [address] Cell [employer]!! Robotic Assisted Myomectomy with Chromopertubation Scheduled Procedures Name Priority Associated Diagnoses Date/Ti me MYOMECTOMY - ROBOTIC ASSISTED Fibroids, intramural 02/24/2025 12:00 PM CDT Health Maintenance Due Date Last Done Comments Depression Screening 1988 Hepatitis C Screening 1988 DTaP/Tdap/Td Vaccine (1 - Tdap) 1999 Varicella Vaccines (1 of 2 - 13+ 2-dose series) 2001 Hepatitis B Screening 2006 Regular Well Visit/Exam 18-64 2006 Covid-19 Vaccine (2023-2 5 season) 2024 09/16/2021, 12/01/2020, 11/03/2020 Influenza [...] Coffey MD LAB BLOOD ORDERABLES Final Result [facility] [address] [facility] [place] [address] * (ABNORMAL) Iron profile w/ IBC (01/30/2025 9:49 AM CDT) [facility] Iron 26(L) 40 - 190 mcg/dL [facility] TIBC 384 250 - 450 mcg/dL (calc) [facility] Iron saturation 7(L) 16 - 45 % (calc) [facility] Blood 01/30/2025 9:49 AM CDT 01/30/2025 9:50 AM CDT Tess Coffey MD LAB BLOOD ORDERABLES Final Result Performing Organization Address [facility] Co de Phone Number [facility] [address] [facility] [place] [address] * (ABNORMAL) Iron profile w/ IBC (01/10/2025 7:11 AM CDT) [facility] Iron 11(L) 40 - 190 mcg/dL [facility] TIBC 466(H) 250 - 450 mcg/dL (calc) [facility] Iron saturation 2(L) 16 - 45 % (calc) [facility] Blood 01/10/2025 7:11 AM CDT 01/10/2025 7:11 AM CDT Tess Cofefy MD LAB BLOOD ORDERABLES Final Result Performing Organization Address City/[facility]/ZIP Co de Phone Number [facility] [address] [place] [address] * eGFR (01/09/2025 4:39 PM CDT) [facility] eGFR >90 >=60 mL/min/1. 73 m2 Comment: [...] 01/09/2025 4:39 PM CDT us Sydney Marvin SLEEPING CAR CONDUCTOR LAB BLOOD ORDERABLES Final Result [facility] [address] Department [place] [address] * Basic metabolic panel (01/09/2025 4:39 PM CDT) Sodium 140 135 - 145 mmol/L Potassium, pl 4.2 3.3 - 4.9 mmol/L [facility] Chloride 106 97 - 110 mmol/L [facility] CO2 22 22 - 32 mmol/L [facility] Anion gap 12 2 - 15 mmol/L [facility] BUN 9 6 - 25 mg/dL [facility] Creatinine 0.62 0.60 - 1.10 mg/dL [facility] Glucose 111 70 - 199 mg/dL [facility] Comment: Interpretive Data Fasting glucose >/= 126 [...] classification and Diagnosis of Diabetes Diabetes Care 202; 46: S19-S40. Current interpretive data was last revised 2022. Calcium 9.3 8.5 - 10.3 mg/dL [facility] Blood 01/09/2025 4:39 PM CDT 01/09/2025 4:39 PM CDT Sydney Marvin NP LAB BLOOD ORDERABLES Final Result Performing Organization Address [facility] Co de Phone Number [facility] [address] Department [place] [address] * ECG 12 lead (01/09/2025 3:40 PM CDT) 01/09/2025 3:40 PM CDT Narrative [facility] - 01/09/2025 7:54 PM CDT Vent Rate: 92 bpm RR Interval: 650 msec [place] Interval: 145 msec QRS Duration: 83 msec QT Interval: 332 msec QTC Interval: 382 msec P-R-T [place]: -2 - 46 - 10 degrees IMPRESSION: SINUS RHYTHM NORMAL ECG Electronically Signed By: Guilherme Price [facility] Card Sydney Marvin SLEEPING CAR CONDUCTOR ECG ORDERABLES Germania l Result Performing Organization Address [facility] de Phone Number [facility] [employer] [facility] * (ABNORMAL) Blood smear review (01/09/2025 3:29 PM CDT) RBC morphology Present(A) Hypochromasia 3-7/HPF(A) [facility] Anisocytosis Slight(A) [facility] Poikilocytosis Slight(A) [facility] Microcytes 3-7/HPF(A) [facility] Elliptocytes 3-7/HPF(A) [facility] Platelet estimate Adequate [facility] Morphology scrn See Comment [facility] Comment:PLT: Automated count confirmed by smear review Platelet morphology normal Blood 01/09/2025 3:29 PM CDT 01/09/2025 3:29 PM CDT Sydney Carolina Ashippun SLEEPING CAR CONDUCTOR LAB BLOOD ORDERABLES Final Result [facility] [address] Department [place] [address] * Differential, auto (01/09/2025 3:29 PM CDT) Neutrophil abs 6.30 1.50 - 6.50 K/cumm Imm gran abs 0.02 0.00 - 0.10 K/cumm [facility] Lymphocyte abs 1.72 0.80 - 3.30 K/cumm [facility] Monocyte abs 0.56 0.20 - 0.80 K/cumm [facility] Eosinophil abs 0.09 0.00 - 0.50 K/cumm [facility] Basophil abs 0.05 0.00 - 0.10 K/cumm [facility] Neutrophil pct 72.1 % [facility] Comment: Interpretive Data Percent cell count reference ranges are not reported, since discordance with absolute values may lead to misinterpretation of CBC data. Current Interpretive Data was last revised on 2017. Imm gran pct 0.2 % [facility] Comment: Interpretive Data Percent cell count reference ranges are not reported, since discordance with absolute values may lead to misinterpretation of CBC data. Current Interpretive Data was last revised on 2017. Lymphocyte pct 19.7 % [facility] Comment: Interpretive Data Percent cell count reference ranges are not reported, since discordance with absolute values may lead to misinterpretation of CBC data. Current Interpretive Data was last revised on 2017. Monocyte pct 6.4 % [facility] Comment: Interpretive Data Percent cell count reference ranges are not reported, since discordance with absolute values may lead to misinterpretation of CBC data. Current Interpretive Data was last revised on 2017. Eosinophil pct 1.0 % [facility] Comment: Interpretive Data Percent cell count reference ranges are not reported, since discordance with absolute values may lead to misinterpretation of CBC data. Current Interpretive Data was last revised on 2017. Basophil pct 0.6 % [facility] Comment: Interpretive Data Percent cell count reference ranges are not reported, since discordance with absolute values may lead to misinterpretation of CBC data. Current Interpretive Data was last revised on 2017. Blood 01/09/2025 3:29 PM CDT 01/09/2025 3:29 PM CDT Sydney Marvin SLEEPING CAR CONDUCTOR LAB BLOOD ORDERABLES Final Result Performing Organization Address [facility]/ZIP Co de Phone Number [facility] [address] [facility] [place] [address] * (ABNORMAL) CBC with auto differential (01/09/2025 3:29 PM CDT) WBC 8.74 3.80 - 9.90 K/cumm Hgb 7.0(L) 11.9 - 15.5 g/dL [facility] Hct 26.0(L) 35.6 - 45.5 % [facility] Plt 451(H) 150 - 400 K/cumm [facility] MPV 8.9(L) 9.1 - 12.3 fL [facility] RBC 4.19 3.90 - 5.20 M/cumm [facility] MCV 62.1(L) 81.3 - 96.4 fL [facility] MCH 16.7(L) 27.1 - 33.3 pg [facility] MCHC 26.9(L) 32.3 - 35.7 g/dL [facility] RDW CV 24.7(H) 11.1 - 14.9 % [facility] RDW SD 53.1(H) 35.7 - 48.1 fL [facility] NRBC abs 0.00 0.00 - 0.01 K/cumm [facility] Blood 01/09/2025 3:29 PM CDT 01/09/2025 3:29 PM CDT Sydney Marvin SLEEPING CAR CONDUCTOR LAB BLOOD ORDERABLES Final Result Performing Organization Address City/[facility]/ZIP Co de Phone Number [facility] [address] [employer] [place] [address] * Hemoglobin A1c (01/09/2025 3:29 PM CDT) [facility] Hgb A1C 5.1 4.0 - 5.6 % Estimated Average Glucose 100 mg/dL [facility] Comment: The ADA recommends reporting an estimated Average Glucose (eAG) with all Hemoglobin A1c results using the equation derived from a study of 507 normal and diabetic adults. Minority populations were underrepresented and children were not included. (Diabetes Care 31:1691-5956, 2008). The eAG is not equivalent to a fasting glucose. Blood 01/09/2025 3:29 PM CDT 01/09/2025 3:29 PM CDT Sydney Marvin NP LAB BLOOD ORDERABLES Final Result Performing Organization Address [facility] Co de Phone Number [facility] [address] [place] [address] * Type and screen (01/09/2025 3:28 PM CDT) [facility] ABO Rh AB Negative Ashley, indirect Negative [facility] Blood 01/09/2025 3:28 PM CDT 01/09/2025 3:34 PM CDT Narrative [facility] - 01/09/2025 4:15 PM CDT Is this test being ordered in advance for a procedure?->Yes Expected date of procedure:->01/20/25 Has the patient been transfused in the past 3 months?->No Has the patient been in the past 3 months?->No Sydney Marvin NP LAB BLOOD BANK TEST ORDERABLES Final Result Performing Organization Address City/[facility]/ZIP Co de Phone Number [facility] [address] [facility] [place] [address] * Type and screen (01/06/2025 2:58 PM CDT) Pathologist [facility] ABO Rh AB Negative Ashley, indirect Negative [facility] Blood 01/06/2025 2:58 PM CDT 01/06/2025 8:26 PM CDT Narrative [facility] - 01/06/2025 9:43 PM CDT Has the patient had Daratumumab or Isatuximab in the past 6 months?->Unknown Tess Coffey MD LAB BLOOD BANK TEST ORDERA BLES Final Result [facility] Department [place] [address] * Differential, auto (01/06/2025 2:57 PM CDT) Pathologist [facility] Neutrophil abs 5.19 1.50 - 6.50 K/cumm Imm gran abs 0.03 0.00 - 0.10 K/cumm [facility] Lymphocyte abs 2.12 0.80 - 3.30 K/cumm [facility] Monocyte abs 0.62 0.20 - 0.80 K/cumm [facility] Eosinophil abs 0.13 0.00 - 0.50 K/cumm [facility] Basophil abs 0.05 0.00 - 0.10 K/cumm [facility] Neutrophil pct 63.8 % [facility] Comment: Interpretive Data Percent cell count reference ranges are not reported, since discordance with absolute values may lead to misinterpretation of CBC data. Current Interpretive Data was last revised on 2017. Imm gran pct 0.4 % [facility] Comment: Interpretive Data Percent cell count reference ranges are not reported, since discordance with absolute values may lead to misinterpretation of CBC data. Current Interpretive Data was last revised on 2017. Lymphocyte pct 26.0 % [facility] Comment: Interpretive Data Percent cell count reference ranges are not reported, since discordance with absolute values may lead to misinterpretation of CBC data. Current Interpretive Data was last revised on 2017. Monocyte pct 7.6 % [facility] Comment: Interpretive Data Percent cell count reference ranges are not reported, since discordance with absolute values may lead to misinterpretation of CBC data. Current Interpretive Data was last revised on 2017. Eosinophil pct 1.6 % [facility] Comment: Interpretive Data Percent cell count reference ranges are not reported, since discordance with absolute values may lead to misinterpretation of CBC data. Current Interpretive Data was last revised on 2017. Basophil pct 0.6 % [facility] Comment: Interpretive Data Percent cell count reference ranges are not reported, since discordance with absolute values may lead to misinterpretation of CBC data. Current Interpretive Data was last revised on 2017. Blood 01/06/2025 2:57 PM CDT 01/06/2025 5:32 PM CDT us Tess Coffey MD LAB BLOOD ORDERABLES Final Result [facility] Department [place] [address] * (ABNORMAL) CBC with auto differential (01/06/2025 2:57 PM CDT) WBC 8.14 3.80 - 9.90 K/cumm Hgb 7.0(L) 11.9 - 15.5 g/dL [facility] Hct 25.4(L) 35.6 - 45.5 % [facility] Plt 524(H) 150 - 400 K/cumm [facility] MPV 9.0(L) 9.1 - 12.3 fL [facility] RBC 4.18 3.90 - 5.20 M/cumm [facility] MCV 60.8(L) 81.3 - 96.4 fL [facility] MCH 16.7(L) 27.1 - 33.3 pg [facility] MCHC 27.6(L) 32.3 - 35.7 g/dL [facility] RDW CV 24.2(H) 11.1 - 14.9 % [facility] RDW SD 50.5(H) 35.7 - 48.1 fL [facility] NRBC abs 0.00 0.00 - 0.01 K/cumm [facility] Blood 01/06/2025 2:5 7 PM CDT 01/06/2025 5:32 PM CDT us Tess Coffey MD LAB BLOOD ORDERABLES Final Result [facility] Department [place] [address] * MRI Pelvis W WO Contrast (12/23/2024 [...] 3 Months Insurance [employer] Care Teams Larry Car Operator Relationship Specialty [place] [address] [place] [address] PCP - General Internal Medicine 12/11/24
--- OUTSIDE RECORDS SUMMARY | 2025-02-18 08:47 | XMS_ITS | Clinical Summary ---
Author Organization [facility] Honorio guadarrama [facility] Address [address] [facility] [place] [place] [address] Care Team Providers Care Piccoloist Name Role Phone Unavailable Primary Care Provider Unavailabl e Allergies No known active allergies Medications tirzepatide (MOUNJARO SUBCUT) Inject by subcutaneous injection. Active metformin HCl (METFORMIN ORAL) Take by mouth. Activ e Active Problems No known active problems Encounters Date Type Department Care Team Description 02/11/2025 External Device Data [facility] Provider, Abstract 02/04/2025 External Device Data [facility] Provider, Abstract 01/09/2025 External Device Data [facility] Provider, Abstract 01/08/2025 External Device Data [facility] Provider, Abstract 01/07/2025 External Device Data [facility] Provider, Abstract 12/03/2024 External Device Data [facility] Provider, Abstract 11/21/2024 Telephone [facility] Oncology and Hematology - Suhas [address] [facility] [address] [place] [address] Sg Haro MD Labs not done for appt. from Last 3 Months Family History Medical [...] 2:39 PM CDT Height 170.2 cm (5' 7) 2024 2:37 PM CDT Body Mass Index 50.75 2024 2:37 PM CDT Plan of Treatment Health Maintenance Due Date [...]
--- OUTSIDE RECORDS SUMMARY | 2025-02-18 08:47 | XMS_ITS | Encounter Summary ---
Author Organization [facility] Healthcare Address [address] [place] [address] Care Team Providers Care Senior Director Creative Services Name Role Phone Tess Nelson MD Primary Care Provider [phone] Encounter Details Date Type Department Care Team (Late st Contact Info) Description 01/14/2025 Telephone [facility] [address] [facility] 7th [place] [address] Julisa Llanos, ANTONIA Social History Tobacco Use Types Packs/Day Years Used Date Smoking Tobacco: Never Smokeless Tobacco: Never AUDIT-C Answer Date Recorded Q1: How often [...] on file Sexual Orientation Not on file documented as of this encounter Plan of Treatment Upcoming Encounters Date Type Department Care Team (Latest Contact Info) Description 02/24/2025 12:00 PM CDT Hospital Encounter [facility] Operating Room [facility] [place] [phone] Tess Coffey MD [address] [id number] 02/24/2025 12:00 PM CDT - 02/24/2025 4:00 PM CDT Surgery [facility] Operating Room [facility] [place] [address] Tess Coffey MD [address] [address] [employer] Robotic Assisted Myomectomy with Chromopertubation Scheduled Procedures Name Priority Associated Diagnoses Date/Ti me MYOMECTOMY - ROBOTIC ASSISTED Fibroids, intramural 02/24/2025 12:00 PM CDT documented as of this encounter Visit Diagnoses Not on filedocumented in this encounter Care Teams Senior Director Creative Services Relationship Specialty [place] [address] [place] [address] PCP - General Internal Medicine 12/11/24 documented as of this encounter
--- OUTSIDE RECORDS SUMMARY | 2025-02-18 08:48 | XMS_ITS | Patient Health Record ---
Author Organization [facility] Address [address] [address] Care Team Providers Care Materials Mgmt Tech Name Role Phone Tess Nelson Primary Care Provider [phone] Ebony Loo Unavailable [phone] Migration, Provider Unavailable Unavailable Allergies No Known Allergies Results Component Value Reference Range Notes COMPREHENSIVE METABOLIC PANE L Reviewed date:03/12/2024 01:50:25 PM Interpretation: Performing Lab:[facility], [address] [place], [address] Lorraine Aguilar MD Notes/Report: FASTING:YES FASTING: YES DEXAMETHASONE Reviewed date:03/21/2024 07:19:37 PM Interpretation: Performing Lab:[facility]ER[facility],, [address] [place], [address] Bette Jaeger MD,PhD,ANAMARIA Notes/Report: FASTING:YES FASTING: YES DEXAMETHASONE 207 Reference Ranges for Dexamethasone: Baseline: Less than 20 ng/dL 1 mg dexamethasone overnight: 180-550 ng/dL (8:00-10:00 AM) This test was developed and its analytical performance characteristics have been determined by [employer] It has not been cleared or approved by FDA. This assay has been validated pursuant to the CLIA regulations and is used for clinical purposes. T3, FREE Reviewed date:03/12/2024 01:51:07 PM Interpretation: Performing Lab:[facility], [address] [place], [address] Lorraine Aguilar MD Notes/Report: FASTING:YES FASTING: YES CORTISOL, TOTAL Reviewed date:03/12/2024 01:53:12 PM Interpretation: Performing Lab:[facility], [address], [place], [address] Lorraine Aguilar MD Notes/Report: FASTING:YES FASTING: YES C-PEPTIDE Reviewed date:03/12/2024 01:49:55 PM Interpretation: Performing Lab:[facility], [address], [place], [place], [address] Lorraine Aguilar MD Notes/Report: FASTING:YES FASTING: YES INSULIN Reviewed date:03/12/2024 01:50:45 PM Interpretation: Performing Lab:[facility], [address], [place], [address] Lorraine Aguilar MD Notes/Report: FASTING:YES FASTING: YES CBC (INCLUDES DIFF/PLT) Reviewed date:04/03/2024 11:20:32 AM Interpretation: Performing Lab:[facility], [address], [place], [place], [address] Lorraine Aguilar MD Notes/Report: FASTING:YES FASTING: YES T4, FREE Reviewed date:03/12/2024 01:50:52 PM Interpretation: Performing Lab:[facility], [address], [place], [address] Lorraine Aguilar MD Notes/Report: FASTING:YES FASTING: YES TSH Reviewed date:03/12/2024 01:49:49 PM Interpretation: Performing Lab:[facility], [address], [place], [address] Lorraine Aguilar MD Notes/Report: FASTING:YES FASTING: YES PLATELET ESTIMATION Reviewed date:03/12/2024 01:53:24 PM Interpretation: Performing Lab:[facility], [address], [place], [address] Lorraine Aguilar MD Notes/Report: FASTING:YES FASTING: YES CBC MORPHOLOGY Reviewed date:03/12/2024 01:51:29 PM Interpretation: Performing Lab:[facility], [address], [place], [address] Lorraine Aguilar MD Notes/Report: FASTING:YES FASTING: YES CBC MORPHOLOGY NORMAL Acanthocytes 1 + Anisocytosis 1 + Microcytosis 2 + Poikilocytosis 1 + Polychromasia 1 + Hypochromasia 2 + Ovalocytes 1 + Crenated red blood cells 1 + COMPREHENSIVE METABOLIC PANE L Reviewed date:06/20/2024 08:10:46 PM Interpretation: Performing Lab:[facility], [address], [place], [address] Lorraine Aguilar MD Notes/Report: DRAWN AT 950 FASTING:YES FASTING: YES ACTH, PLASMA Reviewed date:06/20/2024 08:10:40 PM Interpretation: Performing Lab:[facility] HERNANDEZ/Roly [facility], [address], [place], [address] Jimmy Hawkins M.D.,PhD Notes/Report: DRAWN AT 950 FASTING:YES FASTING: YES T3, FREE Reviewed date:06/16/2024 07:44:05 PM Interpretation: Performing Lab:[facility], [address], [place], [address] Lorraine Aguilar MD Notes/Report: DRAWN AT 950 FASTING:YES FASTING: YES DHEA SULFATE Reviewed date:06/16/2024 07:44:32 PM Interpretation: Performing Lab:[facility], [address], [place], [address] Lorraine Aguilar MD Notes/Report: DRAWN AT 950 FASTING:YES FASTING: YES ESTRADIOL Reviewed date:06/16/2024 07:44:18 PM Interpretation: Performing Lab:[facility], [address], [place], [address] Lorraine Aguilar MD Notes/Report: DRAWN AT 950 FASTING:YES FASTING: YES HEMOGLOBIN A1c Reviewed date:06/16/2024 07:43:39 PM Interpretation: Performing Lab:[facility], [address], [place], [address] DarcieSulma Aguilar Notes/Report: DRAWN AT 950 FASTING:YES FASTING: YES INSULIN Reviewed date:06/16/2024 07:44:25 PM Interpretation: Performing Lab:[facility], [address], [place], [address] Lorraine Aguilar MD Notes/Report: DRAWN AT 950 FASTING:YES FASTING: YES CBC (INCLUDES DIFF/PLT) Reviewed date:06/20/2024 08:11:15 PM Interpretation: Performing Lab:[facility], [address], [place], [address] Lorraine Aguilar MD Notes/Report: DRAWN AT 950 FASTING:YES FASTING: YES VITAMIN B12/FOLATE, SERUM PA ROYA Reviewed date:06/16/2024 07:43:58 PM Interpretation: Performing Lab:[facility], [address], [place], [place], [address] Lorraine Aguilar MD Notes/Report: DRAWN AT 950 FASTING:YES FASTING: YES PROGESTERONE Reviewed date:06/19/2024 02:53:21 PM Interpretation: Performing Lab:[facility], [address], [place], [address] Lorraine Aguilar MD Notes/Report: DRAWN AT 950 FASTING:YES FASTING: YES IRON AND TOTAL IRON BINDING CAPACITY Reviewed date:06/20/2024 08:10:56 PM Interpretation: Performing Lab:[facility], [address], [place], [place], [address] Lorraine Aguilar MD Notes/Report: DRAWN AT 950 FASTING:YES FASTING: YES LIPID PANEL Reviewed date:06/20/2024 08:11:02 PM Interpretation: Performing Lab:[facility], [address], [place], [address] Lorraine Aguilar MD Notes/Report: DRAWN AT 950 FASTING:YES FASTING: YES T4, FREE Reviewed date:06/20/2024 08:10:32 PM Interpretation: Performing Lab:[place], [facility], [address] [place], [address] Lorraine Aguilar MD Notes/Report: DRAWN AT 950 FASTING:YES FASTING: YES TSH Reviewed date:06/16/2024 07:44:12 PM Interpretation: Performing Lab:[place], [facility], [address] [place], [address] Lorraine Aguilar MD Notes/Report: DRAWN AT 950 FASTING:YES FASTING: YES TESTOSTERONE, FREE (DIALYSIS ) AND TOTAL,MS Reviewed date:06/20/2024 08:10:24 PM Interpretation: Performing Lab:[facility], [address] [address], [address], [place], [address] John Kramer MD,PhD Notes/Report: DRAWN AT 950 FASTING:YES FASTING: YES TESTOSTERONE, TOTAL, MS 4 2-45 ng/dL For additional information, please refer to https://education.Jukedeck.Indotrading/faq/OXJ673 (This link is being provided for informational/educational purposes only.) (Note) This test was developed and its analytical performance characteristics have been determined by [employer]. It has not been cleared or approved by the FDA. This assay has been validated pursuant to the CLIA regulations and is used for clinical purposes. TESTOSTERONE, FREE 0.8 0.1-6.4 pg/mL (Note) This test was developed and its analytical performance characteristics have been determined by [employer]. It has not been cleared or approved by the FDA. This assay has been validated pursuant to the CLIA regulations and is used for clinical purposes. [facility] [address] [facility] [address] [facility] [address] John Kramer MD, PhD Reason For Referral Reason Dr. Sg Haro [facility] Oncology and Hematology - [address] [place], [place] [id number] Diagnosis 1 Abnormal finding of blood chemistry, unspecified (R79.9) Diagnosis 2 Other abnormality of red blood cells (R71.8) Referral Organization [facility], [facility] - Tess Nelson Referring Provider First Name Ebony Referring Provider Last Name Eze Referring Provider [facility] Referral Priority Routine Reason hemoglobin of 6.6, n eeds transfusion and workup for hemolytic anemia, vs sickle cell vs severe anemia, needs urgent evaluation thank you Referral Organization [facility] - Tess Nelson Referring Provider First Name Tess Referring Provider Last Name Omar [facility] Referred Provider Specialty Hematology Referral Priority Routine Reason severe iron def anem ia, iron sat 1%; Hgb 6.6 Referral Organization [facility] - Tess Omar Referring Provider First Name Tess Referring Provider Last Name Omar Referring Provider [facility] Referred Provider Specialty Hematology Referral [...] Hyperglycemia due to type 2 diabetes mellitus (555388546333958) Type 2 diabetes mellitus with hyperglycemia (E11.65) Active confirmed Problem Obesity (318922375) Obesity, unspecified (E66.9) Active confirmed Problem Iron deficiency anemia (95530901) Iron deficiency anemia, unspecified (D50.9) Active confirmed Problem Chronic anemia (440623131) Anemia in other chronic diseases classified elsewhere (D63.8) Active confirmed Problem Morbid obesity (disorder) (283954730) Morbid (severe) obesity due to excess calories (E66.01) Active confirmed Problem 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, 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 Problem Excessive and frequent menstruation (138207509) Excessive and frequent menstruation with regular cycle (N92.0) Active confirmed Problem Body mass index 40+ - morbidly obese (579000181) Body mass index [BMI] 50.0-59.9, adult (Z68.43) Active confirmed Vital Signs Heart Rate 112 /min 09/02/2024 SPO2: 99% Blood pressure diastolic 84 mm Hg 09/02/2024 SPO 2: 99% Height 67 in 09/02/2024 SPO2: 99% Blood pressure systolic 119 mm Hg 09/02/2024 SPO2 : 99% Weight 280.0 lbs 09/02/2024 SPO2: 99% BMI 43.85 kg/m2 09/02/2024 SPO2: 99% Encounters Encounter Location Date Provider Diagnosis [facility] [address] [place] [address] 06/07/2024 Tess Nelson Type 2 diabetes mellitus with hyperglycemia E11.65 ; Morbid (severe) obesity due to excess calories E66.01 and Excessive and frequent menstruation with regular cycle N92.0 [facility] [address] [place] [address] 09/02/2024 Tess Nelson Type 2 diabetes mellitus with hyperglycemia E11.65 ; Iron deficiency anemia, unspecified D50.9 ; Obesity, unspecified E66.9 and Dietary counseling and surveillance Z71.3 [facility] [address] [place] [address] 10/28/2024 Tess Nelson [facility] [address] [place] [address] 07/06/2024 Provider Migration Type 2 diabetes mellitus with hyperglycemia E11.65 and Morbid (severe) obesity due to excess calories E66.01 [facility] [address] [place] [address] 03/07/2024 Ebony Loo Morbid (severe) obesity due to excess calories E66.01 ; Body mass index [BMI] 50.0-59.9, adult Z68.43 ; Type 2 diabetes mellitus with hyperglycemia E11.65 ; Abnormal weight gain R63.5 and Excessive and frequent menstruation with regular cycle N92.0 [facility] [address] [place] [address] 04/04/2024 Tess Nelson [employer] [address] [place] [address] 06/06/2024 Tess Omar [facility] [address] [place] [address] 06/10/2024 Tess Omar [facility], [facility] - Tess [place] [address] [place] [address] 06/17/2024 Tess Omar [facility] [address] [place] [address] 06/19/2024 Tess Omar [facility] [address] [place] [address] 06/19/2024 Tess Omar Anemia in other chronic diseases classified elsewhere D63.8 [facility] - Tess [place] [address] [place] [address] 08/12/2024 Tess Omar Type 2 diabetes mellitus with hyperglycemia E11.65 [facility] Tess [place] [address] [place] [address] 09/02/2024 Tess Nelson [facility] [employer] [id number] [place] [address] 09/17/2024 Tess Omar Morbid (severe) obesity due to excess calories E66.01 [facility] - Tess [place] [address] [place] [address] 04/03/2024 Ebony Loo Abnormal finding of blood [...] Will refer to Dr. Sg Haro in [facility]. Pt provided phone number and advised to do f/u appt. Referral to Chemical Production Engineer: Due to abnormalities in your CBC, I have referred you to Dr. gS Haro at [facility] in [place]. Please call [phone] to schedule an appointment. If you encounter [...] R63.5) - DST testing to rule out [facility]'s syndrome. - Pt given lab order to [facility] to complete total cortisol dexasuppresion and dexamethasone level -Screening thyroid function (TSH, FT4, FT3) at [facility] 04/03/2024 Type 2 diabetes mellitus with hyperglycemia [...] Patient's cortisol level was 1.1, below the [facility]'s threshold of 1.8 - Plan: Continue metformin, repeat cortisol level test to ensure it is not climbing. If climbing, consider adrenal imaging for nodules. 3. Heavy menstrual bleeding and possible fibroids - Patient has seen a manual winder and received a transfusion - Plan: Coordinate with patient's windscreen fitter, Dr. Tang, for further evaluation and management [...] Mounjaro 10 mg and dexamethasone prescriptions to [facility], ensure no insurance issues 10. Sinus congestion - Patient reports mild sinus congestion - Plan: Monitor symptoms, recommend xpvo-mmu-ccdmmod decongestants if needed, and evaluate for possible sinus infection if symptoms worsen or persist. Spent 25 minutes preparing to see the patient (ex review of tests/chart), obtaining and / or reviewing separately obtained history, performing a medically appropriate examination and/or evaluation, counseling and educating the patient/family/primary care nurse, ordering medications, tests, or procedures, referring and communicating with other health care asst, documenting clinical information in the electronic or other health record, independently interpreting results and communicating results to the patient/family/primary care nurse and care coordinating patient plan. Patient alert [...] heavy menstrual bleeding. Refer patient to a manual winder (Dr. Haro) in [place] for further evaluation and management. Consider iron infusion if patient becomes to ensure safe blood counts for both mother and baby. Menstrual Bleeding and Gynecological Concerns Patient reports heavy menstrual bleeding and is currently under the care of a windscreen fitter. Obtain windscreen fitter's information and send a note regarding patient's [...] examination and/or evaluation, counseling and educating the patient/family/primary care nurse, ordering medications, tests, or procedures, referring and communicating with other health care asst, documenting clinical information in the electronic or other health record, independently interpreting results and communicating results to the patient/family/primary care nurse and care coordinating patient plan. Patient alert [...] Date Coverage End Date [employer] [address] [place] [phone] [phone] [id number] Rosemary Corado Self - patient is the insured Medical (General) History Medical History History ICD Code DIABETIES WEIGHT LOSS Surgical History Surgery Date(Month/Year) HYSTEROSCOPY 2022 Hospitalization History Reason Date(Month/Year) D&C 2019
--- OUTSIDE RECORDS SUMMARY | 2025-02-18 08:48 | XMS_ITS | Continuity of Care Document ---
Author Organization [facility] Address [address] [place] [address] Phone Care Team Providers Care Pastry Decorator Name Role Phone Nurse, Registered Unavailable Unavailable Procedures Procedure Date Immunization Admin COVID19 Pfizer Dose 3 COVID19 Vaccine Pfizer Immunization Admin COVID19 Pfizer Dose 3 Advance Directives Directive Yes / No Effective Date File Name No Information Encounters Encounter Description Practice Location Reason(s) For Visit Diagnoses Date Provider Providers Copied on Encounter [facility] , [address], [place], [place], [address], [place] tel:[phone] [facility] No Information Nurse Registered . [address], [place], [place], [address], [place]. tel:[phone] Family History Family Member Type Diagnosis Age At Onset No Information Immunizations Vaccine Date Status Comments COVID-19 Pfizer (12 years and older) administered Note: tolerated well ; Source: New Immunization Record Payers Payer name Insurance type Covered libertarian ID Authoriza tifranc(s) COVID19 HRSA Uninsured Testi ng and Treat CI [id number] Social History Type Description Quantity Date Captured Comments Alcohol Use Details Unknown Caffeine Use Details Unknown Tobacco Use Status No Information Smoking Status No Information Sex Female Chief Complaint And Reason For Visit No Information Reason For Referral Reason For Referral No Information History Of Present Illness Encounter Date Complaint History Of Prese nt Illness No Information Functional Status Date Functional Assessmen t No Information Instructions Date Instruction Additional Infor mation No Information Assessments Type Assessment Date No Information Patient Care Teams Name Effective Dates (start - stop) Status Members No Information
--- OUTSIDE RECORDS SUMMARY | 2025-02-18 08:48 | XMS_ITS | Clinical Summary ---
Author Organization [facility] Address [address] [place] [address] Care Team Providers Care Nurse Technician Name Role Phone Unavailable Primary Care Provider Unavailabl e Source Comments [facility],non-owned Affiliates and Associated Physician Practices is amultiple site organization consisting of ambulatory clinics and hospital sitesin [place], [place] and [place]. This disclosure is being madepursuant to the Care Everywhere program and may not contain all information available regarding this patient. Last updated 18.[facility] [employer] Social History Tobacco Use Types Packs/Day Years Used Date Smoking Tobacco: Never Assessed Comments Unknown Sex and Gender Information Value Date Recorded Sex Assigned at Not on file Legal Sex Female 3:30 PM CDT Gender Identity Not on file Sexual Orientation Not on file Plan of Treatment Health Maintenance Due Date Last Done Comments HIV SCREENING 2003 HEPATITIS C SCREENING 04/21/2006 DTAP/TDAP/TD VACCINES (1 - Tdap) 2007 HEPATITIS B VACCINE (1 of 3 - 19+ 3-dose series) 2007 PAP SMEAR 2009 COVID-19 VACCINE (2023-2 5 season) 2024 09/16/2021, [...] patient's age to complete this topic Insurance [facility]
--- OUTSIDE RECORDS SUMMARY | 2025-02-18 08:48 | XMS_ITS | Encounter Summary ---
Author Organization [facility] Address [address] [place] [address] Phone Care Team Providers Care Metal Sprayer Protective Coating Name Role Phone Tess Nelson MD Primary Care Provider [phone] Encounter Details Date Type Department Care Team (Latest Contact Info) Description 01/07/2025 Results Follow-Up [facility] Reproductive Endocrinology [address] [address] Tess Coffey MD [address] [address] Type and screen, CBC with auto differential, Differential, auto Social History Tobacco Use Types Packs/Day Years Used Date Smoking Tobacco: Never Assessed AUDIT-C Answer Date Recorded Q1: How often do you have a drink containing alcohol? Never 01/09/2025 Q2: How many drinks containi ng alcohol do you have on a typical day when you are drinking? Patient does not drink Q3: How often do you have si x or more drinks on one occasion? Never 01/09/2025 Personal Safety Answer Date Recorded Have you ever been in or are you currently in a harmful physical or emotional relationship or is someone making you feel afraid or unsafe? Denies 01/09/2025 Comments Unknown Sex and Gender Information Value Date Recorded Sex Assigned at Not on file Legal Sex Female 3:14 PM CDT Gender Identity Not on file Sexual Orientation Not on file documented as of this encounter Functional Status * Audit-C Score Answer Date of Assessment Author 0 01/09/2025 2:47 PM CDT Yenni Nash RN * Question Answer Date of Assessment Author Q1: How often do you have a drink containing alcohol? Never 01/09/2025 2:47 PM CDT Yenni Nash, ANTONIA Q2: How many drinks containing alcohol do you have on a typical day when you are drinking? Patient does not drink 01/09/2025 2:47 PM CDT Yenni Nash, ANTONIA Q3: How often do you have six or more drinks on one occasion? Never 01/09/2025 2:47 PM CDT Yenni Nash RN documented as of this encounter Plan of Treatment Upcoming Encounters Date Type Department Care Team (Latest Contact Info) Description 02/24/2025 12:00 PM CDT Hospital Encounter [facility] Operating Room [address] [place] [phone] Tess Coffey MD [address] [phone] 02/24/2025 12:00 PM CDT - 02/24/2025 4:00 PM CDT Surgery [facility] Operating Room [address] [place] [phone] Tess Coffey MD [address] [phone] Cell Saver!! Robotic Assisted Myomectomy with Chromopertubation Scheduled Procedures Name Priority Associated Diagnoses Date/Ti me MYOMECTOMY - ROBOTIC ASSISTED Fibroids, intramural 02/24/2025 12:00 PM CDT documented as of this encounter Visit Diagnoses Not on filedocumented in this encounter Care Teams Metal Sprayer Protective Coating Relationship Specialty [place] [address] [place] [address] PCP - General Internal Medicine 12/11/24 documented as of this encounter
--- OUTSIDE RECORDS SUMMARY | 2025-02-18 08:48 | XMS_ITS | Data Portability ---
Author Organization [facility] [place] Address [address] [place] [address] Care Team Providers Care Copra Processor Name Role Phone MEIR VALLE Primary Care Provider [phone] Assessment Encounter Date Assessment Date Assessment LastModified [...] Organization Detail LastModifiedTime 01/17/20 24 01/17/2024 ANTIM ULLER KUSH HORMO NE ([facility]) anti-mulleri an hormone [...] actur es canno t be used inter [facility]. Not Available [facility] (Lab) [address] [place], [address], 01/23/2024 17:42:53 01/17/20 24 01/17/2024 ESTRA DIOL estradiol 29.4 pg/mL This assay was perfo rmed using [employer] ratio n reage nts and test kits. Value s obtai marissa with other assay metho ds or kits canno t be used inter [facility] . Femal e Estra diol Range s: Folli cular phasE 12.4- 233 pg/mL Ovula tion phasE 41.0- 398 pg/mL Lutea l phasE 22.3- 341 pg/mL Postm enopa usal <5-13 8 pg/mL Healt hy Pregn ant Women 1st Trime ster 154-3 243 pg/mL 2nd Trime ster 1561- 24438 pg/mL 3rd Trime ster 8525- >3000 0 pg/mL Not Available [facility] (Lab) [address] [place], [address], 01/23/2024 17:42:53 01/17/20 24 01/17/2024 PROGE STERO NE progesterone 0.12 NG/mL This assay was perfo rmed using [employer] reage nts and test kits. Value s obtai marissa with other assay metho ds or kits canno t be used inter [facility] . Femal e Proge stero ne Range s: Folli cular phasE 0.06- 0.89 ng/mL Ovula tion phasE 0.12- 12.00 ng/mL Lutea l phasE 1.83- 23.90 ng/mL Postm enopa usal <0.05 -0.13 ng/mL Healt hy Pregn ant Women 1st Trime ster 11.0- 44.30 2nd Trime ster 25.40 -83.3 0 3rd Trime ster 58.70 -214. 00 Not Available [facility] (Lab) [address] [facility], [place], [address], 01/23/2024 17:42:54 01/17/20 24 01/17/2024 PROLA CTIN prolactin, total 18.10 NG/mL 4.79-2 3.30 This assay was perfo rmed using [employer] reage nts and test kits. Value s obtai marissa with other assay metho ds or kits canno t be used inter [facility] . Not Available [facility] (Lab) [address] [facility], [place], [address], 01/23/2024 17:42:54 01/17/20 24 01/17/2024 LH (LUTE NIZIN G HORMO NE) LH 4.8 mIU/m L This assay was perfo rmed using [employer] reage nts and test kits. Value s obtai marissa with other assay metho ds or kits canno t be used inter [facility] . Femal es Mid-F ollic ular: 2.4-1 2.6 mIU/m L Mid-C ycle: 14.0- 95.6 mIU/m L Mid-L uteal : 1.0-1 1.4 mIU/m L Postm enopa use: 7.7-5 8.5 mIU/m L Not Available [facility] (Lab) [address] [facility], [place], [address], 01/23/2024 17:42:55 01/17/20 24 01/17/2024 FSH FSH 5.8 mIU/m L This assay was perfo rmed using [employer] reage nts and test kits. Value s obtai marissa with other assay metho ds or kits canno t be used inter [facility] . Femal es Folli cular : 3.5-1 2.5 mIU/m L Ovula tion: 4.7-2 1.5 mIU/m L Lutea l: 1.7-7 .7 mIU/m L Postm enopa use: 25.8- 134.8 mIU/m L Not Available [facility] (Lab) [address], [place], [address], 01/23/2024 17:42:55 01/17/20 24 01/17/2024 DHEA SULFA TE DHEA-sulfate 56 ug/dL Femal e Range s Age(y ) Range (ug/d L) 10-15 34-28 0 15-20 65-36 8 20-25 148-4 07 25-35 99-34 0 35-45 61-33 7 45-55 35-25 6 55-65 19-20 5 65-75 9-246 > 75 12-15 4 Not Available [facility] (Lab) [address], [place], [address], 01/23/2024 17:42:56 01/17/20 24 01/17/2024 TSH, REFLE X FREE T4 TSH 1.69 uIU/m L 0.30-5 .33 Not Available [facility] (Lab) [address] [facility], [place], [address], 01/23/2024 17:42:56 01/17/20 24 01/17/2024 HEMOG LOBIN [...] Goal of thera py >8.0% Actio n sugge sted Not Available [facility] (Lab) [address], [place], [address], 01/23/2024 17:42:56 01/17/20 24 01/17/2024 HUMAN SEX HORMO NE COMFORT NG JUNG DEULCA sex hormone binding globulin 17.9 nmole s/L 18.2-1 35.5 low Not Available [facility] (Lab) [address] [facility], [place], [address], 01/23/2024 17:42:57 01/17/20 24 01/17/2024 TESTO STERO NE, FREE( DIALY SIS) AND TOTAL (LC/M S/MS) testosterone , total 10 NG/dL 2-45 For addit ional infor radha louise e refer to http: //reji chaney.que stdia gnost ics.c om/fa q/ Total Testo stero neLCM SMSFA Q165 (This link is being provi ded for infor jessica moore/ educa jeniffer l purpo ses only. ) This test was devel oped and its marcio tical perfo rmanc e dc cteri stics have been deter mined by [employer] [place], [place]. It has not been clear ed or appro jenaro by the U.S. Food and Drug Admin istra tion. This assay has been valid ated pursu ant to the CLIA regul ation s and is used for clini rush purpo ses. Not Available [facility] (Lab) [address] [facility], [place], [address], 01/23/2024 17:42:57 01/17/20 24 01/17/2024 TESTO STERO NE, FREE( DIALY SIS) AND TOTAL (LC/M S/MS) testosterone , free 2.1 pg/mL 0.1-6. 4 This test was devel oped and its marcio tical perfo rmanc e dc cteri stics have been deter mined by [employer] [place], [place]. It has not been clear ed or appro jenaro by the U.S. Food and Drug Admin istra tion. This assay has been valid ated pursu ant to the CLIA regul ation s and is used for clini rush purpo ses. Perfo rming Organ izati on Infor matio n: Site ID: [id number] Name: [facility] [place]ar Addre ss: [id number] [place], [place] Direc tor: Janie Hawkins MD PhD Not Available [facility] (Lab) [address] [facility], [place], [address], 01/23/2024 17:42:57 01/17/20 24 01/17/2024 17-OH PROGE [...] purpo ses. Perfo rming Organ izati on Infor matio n: Site ID: EZ Name: [facility] [place] , Addre ss: [id number] [facility] [place] [address] Direc tor: Bette varghese MD,Ph D,ANAMARIA Not Available [facility] (Lab) [address] [facility], [place], [address], 01/23/2024 17:42:58 11/02/19 23 11/01/2022 , pelvi s No observ ation record ed. [email or web address] [place] [address], [place], [address], 11/01/2022 12:42:09 11/02/19 23 11/01/2022 US, trans vagin al No observ ation record ed. [email or web address] [place] [address], [place], [address], 11/01/2022 12:41:58 11/02/19 23 11/01/2022 [place], pelvi s No observ ation record ed. [email or web address], [place], [address], 11/02/2022 12:14:03 01/20/20 23 01/19/2023 XR, hyste amina pingo gram No observ ation record ed. [address], [place], [address], 01/19/2023 22:51:58 Result Notes None recorded. Procedures Surgical History Date Name Laterality Status Provider Name and Address Organization Details Recorded Time 01/21/20 21 DILATION AND CURETTAGE WITH HYSTEROSCOPY (SURG) completed Mandy Sun [facility] 01/21/2021 11:42:51 11/18/19 21 Endometrial Biopsy completed Al Pacheco MD [address], [place], [address], [facility] 11/17/2020 15:47:28 05/21/20 02 transfusion of blood component completed Connie Pate [facility] 10/25/2022 14:35:47 Imaging Results None recorded. Procedure Notes None recorded. Medical Equipment None [...] Updated DateTime 11/29/2022 170.18 cm 54.3 kg/m2 819188.5 5 g 141 mm[Hg] 87 mm[Hg] Connie [facility] 3 15:24:43 Date Recorded Body height Body mass index (BMI) Body weight Systolic blood pressure Diastolic blood pressure Provider Name and Address Organization Details Last Updated DateTime 12/29/2023 170.18 cm 50.3 kg/m2 570003.1 5 g 168 mm[Hg] 61 mm[Hg] Angeles Longo [facility] 4 12:52:12 Date Recorded Body height Body mass index (BMI) Body weight Systolic blood pressure Diastolic blood pressure Provider Name and Address Organization Details Last Updated DateTime 01/05/2024 170.18 cm 56.4 kg/m2 826443.2 5 g 189 mm[Hg] 98 mm[Hg] Daya Liu [facility] 4 09:11:20 Date Recorded Body height Body mass index (BMI) Body weight Systolic blood pressure Diastolic blood pressure Provider Name and Address Organization Details Last Updated DateTime 01/27/2023 170.18 cm 53.7 kg/m2 076865.1 8 g 124 mm[Hg] 91 mm[Hg] Connie [facility] 3 10:36:38 Social History Question Answer Notes LastModified by Organizat ion Details LastModified Time Tobacco Smoking Status Never Smoker Mandy Sun [facility] 01/20/2023 10:44:18 Do You Have An Advance Directive? No Information n ot available 11/17/2020 If You Are , What Was Your Level Of Alcohol Consumption Prior To ? None [email or web address] Information not available 01/20/2023 How Many Years [...] Or The Highest Degree You Have Received? [id number] Information not available 11/17/2020 Are There Any Guns Present In Your Home? No Information not available 11/17/2020 Do You Use Protection During Sex? No [email or web address] Information not available 01/05/2024 Do You Use Your Seat Belt Or Car Seat Routinely? Yes Information not available 11/17/2020 Do You Have Smoke And Carbon Monoxide Detectors In Your Home? Yes Information not available 11/17/2020 How Much Tobacco Do You Smoke? No Information not available 11/17/2020 Do You Use Sunscreen Routinely? No Information not available 11/17/2020 Has Tobacco Cessation Counseling Been Provided? No [email or web address] Information not available 01/20/2023 How Many Years Have You Smoked Tobacco? 0 Information not available 11/17/2020 Have You Used IV Drugs? No Information not available 11/17/2020 Do You Have Difficulty Walking Or Climbing Stairs? No [email or web address] Information not available 01/05/2024 Sex: Unknown Functional Status Question Answer Note LastModified by Organizat ion Details LastModified Time Do you use any illicit or recreational drugs? No Information not available 11/17/2020 Do you or have you ever used any other forms of tobacco or nicotine? No Information not available 01/20/2023 What is your level of alcohol consumption? None Information not available 11/17/2020 Are you able to walk? YESWOREST Information not available 11/17/2020 Are you able to care for yourself? 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 No [email or web address] Information not available 01/05/2024 What is your exercise level? Moderate Information not available 11/17/2020 Mental Status Question Answer Note LastModified by Organization D etails LastModified Time Do you feel stressed (tense, restless, nervous, or anxious, or unable to sleep at night)? [id number] Information not available 11/17/2020 Family History Relationship Description Onset Age of this Age Resolved Age Notes LastModified by Organization Details LastModified Time Maternal Aunt Substance abuse Not available 2022 10:36:48 Maternal Aunt Diabetes mellitus Not available 2022 10:36:48 Maternal Aunt Substance abuse [email or web address] Not available 2023 09:04:01 Maternal Aunt Diabetes mellitus [email or web address] Not available 2023 09:04:01 Maternal Aunt Substance abuse [email or web address] Not available 2023 09:04:01 Maternal Aunt Diabetes mellitus [email or web address] Not available 2023 09:04:01 Maternal Grandmother Diabetes mellitus Not available 2022 10:36:48 Maternal Grandmother Diabetes mellitus Not available 2023 09:04:01 Maternal Grandmother Diabetes mellitus [email or web address] Not available 2023 09:04:01 Father Diabetes mellitus Not available 2022 10:36:48 Father Diabetes mellitus [email or web address] Not available 2023 09:04:01 Father Diabetes mellitus [email or web address] Not available 2023 09:04:01 Medical History Condition Response Allergies (Food, seasonal, environmental ) N Other N Breast Cancer N Drug/Latex Allergies/Reactions N Blood Transfusion N Dermatologic Disorders N Lung Disease N Defects or Inherited Disease N Breast Problem N Gestational Diabetes N Hematologic disorders N Anesthesia Complications N History of STI N Deep Vein Thrombosis N Polycystic ovary syndrome N Anxiety Disorder N Autoimmune disease N Arthritis N Infertility N Polyps N Acid Reflux (GERD) N History of abnormal pap N Cancer N Stroke N Varicosities N Neurologic/Epilepsy N Endometriosis N High Cholesterol N Headaches N Fibromyalgia N Kidney Disease N Heart Problems N Kidney or Bladder Problems N Thyroid Problems N GI Problems N Eating Disorder [...] SNOMED-CT Code Diagnosis ICD10 Code Diagnosis Note [id number] Al Pacheco MD [place] [address] [address] 10/30/2020 11:05:39 10/30/2020 11:58:02 Abnormal uterine bleeding 5108510752 9100 N93.9 This patient is a 30-year-ol [...] this patient s visit, including available hand flatwork assembler upon arrive, temperatur e check and being asked a series of screening questions. All staff wore face coverings during this encounter, as well as provided additional cleaning and sanitizing of all surfaces, including countertop s, pens, chairs, door handles, light switches, etc, prior to and following the patient s visit. [id number] Al Pacheco MD [place] [address] [address] 11/17/2020 13:43:40 11/17/2020 15:45:46 Abnormal uterine bleeding 8937420126 9100 N93.9 This patient is a 30-year-ol [...] this patient s visit, including available hand flatwork assembler upon arrive, temperatur e check and being asked a series of screening questions. All staff wore face coverings during this encounter, as well as provided additional cleaning and sanitizing of all surfaces, including countertop s, pens, chairs, door handles, light switches, etc, prior to and following the patient s visit. [id number] Al Pacheco MD [place] [address] [address] 11/17/2020 13:44:33 11/17/2020 16:32:27 Abnormal uterine bleeding 1081224591 9100 N93.9 Uterine leiomyoma 534558 05 D25.9 this patient is a 30-year-ol [...] practice doctor wants her to go to endocrinol ogy she should keep that appointmen t. May [...] this patient s visit, including available hand flatwork assembler upon arrive, temperatur e check and being asked a series of screening questions. All staff wore face coverings during this encounter, as well as provided additional cleaning and sanitizing of all surfaces, including countertop s, pens, chairs, door handles, light switches, etc, prior to and following the patient s visit. Endometrium thickened 44 6178382 R93.89 Polycystic ovary syndrome 197997200 E28.2 31852 Al Pacheco MD [place] [address] [address] 12/01/2020 09:46:10 12/01/2020 10:54:39 Abnormal uterine bleeding 3168843370 9100 N93.9 This patient is a 30-year-ol [...] we would consider her stimulatio n ovulation. [id number] Al Pacheco MD [place] [address],[place] [address] 01/12/2021 12:37:45 01/12/2021 22:38:34 Menometrorrhagia 972489653 N92.1 this patient is a 30-year-ol d [...] ovulation [place]. [id number] Al Pacheco MD [place] [address],[place] [address] 01/21/2021 09:38:28 01/21/2021 09:39:36 [id number] Al Pacheco MD [place] [address],[place] [address] 01/26/2021 12:37:01 01/26/2021 13:22:44 Abnormal uterine bleeding 8439771021 9100 N93.9 This patient is a 30-year-ol [...] and possibly IU I With Ca [place]una [address]38[address] Ca Sherman CNM [place] [address],[place] [address] 02/17/2021 14:45:53 02/17/2021 16:40:36 Irregular periods 35943550 N92.6 Trying to conceive 98302 9001 Z31.9 36377 Ca Sherman CNM [place] [address],[place] [address] 03/24/2021 16:04:21 03/24/2021 18:22:57 Irregular periods 66972614 N92.6 Trying to conceive 82003 9001 Z31.9 [id number] Ingrid Maurer , [facility] [address],[place] [address] 10/25/2022 14:19:37 10/25/2022 15:06:12 Abnormal uterine bleeding 1091830760 9100 N93.9 Will have Labs sent from PCP Reviewed lysteda directions Will use these to help for next couple of cycles while evaluating causes of menorrhagi a Counseled on medication R/B's, Most common side effects, & use. All questions were answered to patient satisfacti on. [id number] Al Pacheco MD [place] [address],[place] [address] 11/01/2022 11:40:55 11/01/2022 13:23:57 Abnormal uterine bleeding 4545636663 9100 N93.9 This patient is a 30-year-ol [...] and possibly IU I With Ca Laguna [id number] Al Pacheco MD [place] [address],[place] [address] 11/29/2022 15:14:18 11/30/2022 14:46:42 Uterine leiomyoma 69078958 D25.9 This patient is a 32-year-ol d female presents for follow-up on pelvic ultrasound . She has 2 modest size fibroids. She does have menorrhagi a and was treated with tranexamic acid. She reports that this is been reasonably effective. We talked about her goals for getting . She has not checked her tubes. She has not checked a semen analysis. She ovulates regularly. She tracks her ovulation and have intercours e at the appropriat e time. We spent over 40 minutes face-to-fa ce. More than 50% was counseling . I informed her about hysterosal pingogram. She is going to see if she is covered. She is going to consider doing the test for checking her tubes . [id number] Al Pacheco MD [place] [address],[place] [address] 01/20/2023 10:44:07 01/20/2023 10:45:10 [id number] Al Pacheco MD [place] [address],[place] [address] 01/27/2023 10:30:40 01/27/2023 12:04:19 Female infertility 1988345 N97.9 This patient is a 32-year-ol d female who presents for follow-up after hysterosal pingogram. She like to proceed with treatment for infertilit y. We talked about the process. Talked about Semen analysis per her . We got him a kit. she will begin treatment. [id number] Al Pacheco MD [place] [address],[place] [address] 12/29/2023 12:20:40 12/30/2023 13:37:10 [id number] [facility] [address],[place] [address] 01/05/2024 09:03:51 01/05/2024 11:21:25 Obesity 493717194 E66.9 Type 2 dagoberto betes mellitus 33194375 E11.9 Trying to conceive 39788 9001 Z31.9 Hypertensive disorder 38 393393 I10 Health Concerns Section Related Observation LastModified by Organization Detai ls LastModified Time None Recorded Concern Status LastModified by Organization Details LastModified Time None Recorded Advance Directives Directive N: Payers Insurance Date Sequence Insurance Name Policy Number Policy Kimble Covered Member ID Kimble Member ID Guarantor Name 01/26/2024 1 [place] [id number] Subhash Corado [id number] 2 Rosemary Corado Notes Date Note Type Note Provider Name and Address Organization Details Recorded Time 11/29/2022 text/html This patient is a 32-year-old female presents for follow-up on pelvic ultrasound. She has 2 modest size fibroids. She does have menorrhagia and was treated with tranexamic acid. She reports that this is been reasonably effective. We talked about her goals for getting . She has not checked her tubes. She has not checked a semen analysis. She ovulates regularly. She tracks her ovulation and have intercourse at the appropriate time. We spent over 40 minutes [id number]-[id number]. More than 50% was counseling. I informed her about hysterosalpingogram. She is going to see if she is covered. She is going to consider doing the test for checking her tubes Al Pacheco MD [address], [place], [address], [facility] 11/30/2022 23:35:46 01/27/2023 text/html This patient is a 32-year-old female who presents for follow-up after hysterosalpingogram. She like to proceed with treatment for infertility. We talked about the process. Talked about Semen analysis per her . We got him a kit. she will begin treatment. Al Pacheco MD [address], [place], [address], [facility] 01/27/2023 11:54:21 01/05/2024 text/html pt here to talk about possible IUIrecently adopted baby boy!normal cycles, low sperm count , will send over report from [facility] done 01/19/23BMI today 56taking oral diabetes medication/weight loss, has lost 10 lbs. afraid of injecting at homem[facility] 2023 [email or web address] 7 per pt through PCPhypertension Ca Sherman CNM [address], [place], [address], [facility] 01/05/2024 10:40:55 OBGyn Episode No OBEpisode recorded.
--- OUTSIDE RECORDS SUMMARY | 2025-02-18 08:48 | XMS_ITS ---
Author Organization [facility] Address [address] [place] [address] Care Team Providers Care Compress Trucker Name Role Phone Tess Nelson Primary Care Provider REASON FOR VISIT f/u kelsey TEXT SENT Encounters Encounter Location Date Provider Diagnosis [facility] - Tess Nelson [address] [place] [address] 08/27/2024 Tess Nelson Plan Of Treatment No Information Progress Notes * Allen JAMESB:1990 (34 yo F)Acc No.[id number]:08/27/2024 Progress Notes Patient: Rosemary INMAN Provider: Chance Nelson MD :1990 A ge:34 Y S ex:Female Date:08/27/2024 Address[place] [facility] Subjective: * Chief Complaints: * 1 . f/u kelsey TEXT SENT. * HPI: I nterval Hx: 34 yo female calls in to initiate telehealth visit to discuss progress and management of well controlled type 2 DM (A1C of 5.8%), obesity / weight management, concern for hypercortisolism. Verbal consent provided by patient to proceed with this visit. This visit was performed in office via provider and patient located in primary care office with real time audio with video. Visit was switched to telehealth due to treacherous roads and icy conditions and allowing patient to get care in setting of poor weather conditions. Last seen in May at that time we uptitrated mounjaro to 10 mg weekly. She is seeing Dr. Haro for management of severe JANICE. * Medical History: Objective: * Vitals: * P ast Orders: L ab:TSH (Order Date - 06/13/2024) (Collection Date & Time - 06/13/2024 09:49 AM) Value Reference Range TSH 0.59 - mIU/L L ab:IRON AND TOTAL IRON BINDING CAPACITY (Order Date - 06/13/2024) (Collection Date & Time - 06/13/2024 09:49 AM) Value Reference Range IRON, TOTAL <10 L 40-190 - mcg/dL IRON BINDING CAPACITY 472 H 250-450 - mcg/dL ( calc) % SATURATION 1.01 L 16-45 - % (calc) L ab:DHEA SULFATE (Order Date - 06/13/2024) (Collection Date & Time - 06/13/2024 09:49 AM) Value Reference Range DHEA SULFATE 47 19-237 - mcg/dL L ab:CBC (INCLUDES DIFF/PLT) (Order Date - 06/13/2024) (Collection Date & Time - 06/13/2024 09:49 AM) Value Reference Range WHITE BLOOD CELL COUNT 8.1 3.8-10.8 - Thousa nd/uL RED BLOOD CELL COUNT 4.24 3.80-5.10 - Million /uL HEMOGLOBIN 6.6 L 11.7-15.5 - g/dL HEMATOCRIT 26.2 L 35.0-45.0 - % MCV 61.8 L 80.0-100.0 - fL MCH 15.6 L 27.0-33.0 - pg MCHC 25.2 L 32.0-36.0 - g/dL RDW 22.1 H 11.0-15.0 - % PLATELET COUNT 612 H 140-400 - Thousand/u L NEUTROPHILS 68.2 - % ABSOLUTE NEUTROPHILS 5524 8763-3490 - cells/u L LYMPHOCYTES 20.8 - % ABSOLUTE LYMPHOCYTES 2653 010-0453 - cells/uL MONOCYTES 6.3 - % ABSOLUTE MONOCYTES 510 200-950 - cells/uL EOSINOPHILS 4.3 - % ABSOLUTE EOSINOPHILS 348 15-500 - cells/uL BASOPHILS 0.4 - % ABSOLUTE BASOPHILS 32 0-200 - cells/uL MPV 9.0 7.5-12.5 - fL L ab:HEMOGLOBIN A1c (Order Date - 06/13/2024) (Collection Date & Time - 06/13/2024 09:49 AM) Value Reference Range HEMOGLOBIN A1c 5.8 H <5.7 - % of total Hg b L ab:COMPREHENSIVE METABOLIC PANEL (Order Date - 06/13/2024) (Collection Date & Time - 06/13/2024 09:49 AM) Value Reference Range GLUCOSE 104 H 65-99 - mg/dL UREA NITROGEN (BUN) 10 7-25 - mg/dL CREATININE 0.74 0.50-0.97 - mg/dL BUN/CREATININE RATIO SEE NOTE: 6-22 - (calc) SODIUM 139 135-146 - mmol/L POTASSIUM 4.2 3.5-5.3 - mmol/L CHLORIDE 108 98-110 - mmol/L CARBON DIOXIDE 23 20-32 - mmol/L CALCIUM 9.0 8.6-10.2 - mg/dL PROTEIN, TOTAL 6.9 6.1-8.1 - g/dL ALBUMIN 3.7 3.6-5.1 - g/dL GLOBULIN 3.2 1.9-3.7 - g/dL (calc ) ALBUMIN/GLOBULIN RATIO 1.2 1.0-2.5 - (calc) BILIRUBIN, TOTAL 0.3 0.2-1.2 - mg/dL ALKALINE PHOSPHATASE 76 31-125 - U/L AST 11 10-30 - U/L ALT 8 6-29 - U/L EGFR 107 > OR = 60 - mL/min/1 .73m2 L ab:T4, FREE (Order Date - 06/13/2024) (Collection Date & Time - 06/13/2024 09:49 AM) Value Reference Range T4, FREE 1.1 0.8-1.8 - ng/dL L ab:LIPID PANEL (Order Date - 06/13/2024) (Collection Date & Time - 06/13/2024 09:49 AM) Value Reference Range TRIGLYCERIDES 78 <150 - mg/dL CHOLESTEROL, TOTAL 135 <200 - mg/dL HDL CHOLESTEROL 37 L > OR = 50 - mg/dL LDL-CHOLESTEROL 82 - mg/dL (calc) CHOL/HDLC RATIO 3.6 <5.0 - (calc) NON-HDL CHOLESTEROL 98 <130 - mg/dL (calc) L ab:ACTH, PLASMA (Order Date - 06/13/2024) (Collection Date & Time - 06/13/2024 09:49 AM) Value Reference Range ACTH, PLASMA 5 L 6-50 - pg/mL L ab:VITAMIN B12/FOLATE, SERUM PANEL (Order Date - 06/13/2024) (Collection Date & Time - 06/13/2024 09:49 AM) Value Reference Range FOLATE, SERUM 10.1 - ng/mL VITAMIN B12 332 086-9666 - pg/mL L ab:INSULIN (Order Date - 06/13/2024) (Collection Date & Time - 06/13/2024 09:49 AM) Value Reference Range INSULIN 16.4 - uIU/mL L ab:T3, FREE (Order Date - 06/13/2024) (Collection Date & Time - 06/13/2024 09:49 AM) Value Reference Range T3, FREE 3.0 2.3-4.2 - pg/mL L ab:PROGESTERONE (Order Date - 06/13/2024) (Collection Date & Time - 06/13/2024 09:49 AM) Value Reference Range PROGESTERONE <0.5 - ng/mL L ab:TESTOSTERONE, FREE (DIALYSIS) AND TOTAL,MS (Order Date - 06/13/2024) (Collection Date & Time - 06/13/2024 09:49 AM) Value Reference Range TESTOSTERONE, TOTAL, MS 4 2-45 - ng/dL TESTOSTERONE, FREE 0.8 0.1-6.4 - pg/mL L ab:ESTRADIOL (Order Date - 06/13/2024) (Collection Date & Time - 06/13/2024 09:49 AM) Value Reference Range ESTRADIOL 43 - pg/mL Assessment: Plan: * Treatment: * Billing Information: * Visit Code: * Procedure Codes: * Electronic signature of Ronaldo Nelson MD on 02/18/2025 at 08:47 AM CDT Sign off status: Pending * Provider: Chance Nelson MD Date: 0 08/27/2024 Generated for Printi ng/Faxing/eTransmitting on: 0 02/18/2025 08:47 AM CDT History and Physical Notes * HPI (History of Present Illness) Category Sub-Category Detail Notes Category Not es Interval Hx 34 yo female calls in to initiate telehealth visit to discuss progress and management of well controlled type 2 DM (A1C of 5.8%), obesity / weight management, concern for hypercortisolism. Verbal consent provided by patient to proceed with this visit. This visit was performed in office via provider and patient located in primary care office with real time audio with video. Visit was switched to telehealth due to treacherous roads and icy conditions and allowing patient to get care in setting of poor weather conditions. Last seen in May at that time we uptitrated mounjaro to 10 mg weekly. She is seeing Dr. Haro for management of severe JANICE.
[2025-02-18 08:53] VITALS: BP 142/98; PULSE 88; RESP 15; TEMP 36.6; O2SAT 100
--- NOTE | 2025-02-18 09:15 | ED.RECABL ---
HPI - Recheck/Abnormal Lab/Rx General Chief Complaint: Recheck/Abnormal Lab/Rx Stated Complaint: low hemoglobin Time Seen by Provider: 02/18/25 08:57 Source: patient and old records reviewed Mode of arrival: ambulatory Limitations: no limitations History of Present Illness HPI narrative: Patient is a 34 y/o female, with PMH of DM, who presents to the ED with c/o low hemoglobin. Patient reports long history of anemia, followed by her project structural engineer, Dr. Tess Nelson. Patient states her anemia has been attributed to a large fibroid that she has with subsequent heavy menstrual cycles. Patient finished her last normal menstrual cycle around 1 week ago. Supposed to have fibroids surgically removed soon with Dr. Pacheco. Patient states she had outpatient labs drawn last week and showed a hemoglobin level in the 6 range. Patient reports fatigue, mild lightheadedness. Denies rectal bleeding, melena, hematuria, fevers, chills. Per records, labs from last April showed hemoglobin in the low 6 range. On 01/04/25, Hemoglobin was 5.6. She did receive transfusions at that time. Patient intermittently takes iron supplements. Related Data Home Medications ?Medication ?Instructions ?Recorded ?Confirmed ?Last Taken ?Type metformin 850 mg tablet 1,700 mg PO BIDWMEAL 04/26/24 04/26/24 04/26/24 History tirzepatide 2.5 mg/0.5 mL 7.5 mg subcut WEEKLY 04/26/24 04/26/24 04/26/24 History subcutaneous pen injector (Mounjaro) Allergies Allergy/AdvReac Type Severity Reaction Status Date / Time No Known Allergies Allergy Verified 02/18/25 08:45 Review of Systems Review of Systems: All systems reviewed & are unremarkable except as noted in HPI. All systems reviewed & are unremarkable except as noted in HPI and below PMFSH Past Medical History Medical History Vitamin D deficiency PCOS (polycystic ovarian syndrome) Hypertension History of PCOS Uterine fibroid Menorrhagia with regular cycle Amenorrhea Routine health maintenance Anemia Diabetes Allergic rhinitis Surgical History Surgical History H/O cervical biopsy H/O dilation and curettage Family History Family History Father Diabetes mellitus Hypertension Grandparent Hypertension Diabetes mellitus Social History Social History Social History: The patient is and lives with her . They have no children. She denies any alcohol marijuana or illicit drugs. Her is a durable power sports attorney for healthcare. She works for [employer]. Code status full code Smoking status: Never smoker Second hand tobacco smoke exposure: No Alcohol intake: current Drinks per week: 1 Alcohol use details: wine Substance use: never Substance use type: does not use Living arrangements: with family Occupation/Education: occupation Gender identity (if verbalized by the patient): Female Sexual Orientation (if Verbalized by the Patient): Straight or Heterosexual Spiritual care concerns: No Agree to blood products: Yes Exam Narrative: GENERAL: Well appearing, obese with BMI of 36.5, non-toxic, in no acute distress. HEAD: Normocephalic, atraumatic. RESPIRATORY: Airway patent, respirations nonlabored. Clear to auscultation bilaterally, no rales, rhonchi, wheezing. CARDIOVASCULAR: Regular rate and rhythm without murmurs, rubs, or gallops. ABDOMINAL: Soft, nontender, nondistended. Normoactive BS. MUSCULOSKELETAL: Moves all extremities. No gross deformities. SKIN: Warm, dry, normal color. NEURO: A&O X3. Speech clear. PSYCHIATRIC: Appropriate mood and affect. Normal interaction. Course Vital Signs Vital signs: Vital Signs Temperature 97.8 F 02/18/25 08:53 Pulse Rate 88 02/18/25 08:53 Respiratory Rate 15 02/18/25 08:53 Blood Pressure 142/98 H 02/18/25 08:53 Pulse Oximetry 100 02/18/25 08:53 Oxygen Delivery Room Air 02/18/25 08:53 Temperature 97.8 F 02/18/25 08:53 Pulse Rate 88 02/18/25 08:53 Respiratory Rate 15 02/18/25 09:22 Blood Pressure 142/98 H 02/18/25 08:53 Pulse Oximetry 100 02/18/25 09:22 Oxygen Delivery Room Air 02/18/25 08:53 MDM - Recheck/Abnormal Lab/Rx MDM Narrative Medical decision making narrative: Patient presented to ED with concern for low hemoglobin. History of anemia, heavy menstrual cycles, large uterine fibroid. Vital signs are stable upon arrival. Patient is in no acute distress. Denies any other types of bleeding. Has received transfusions in the past. Cbc here today showing hemoglobin of 9.3. Microcytic at 72.9. Normal white blood cell count, normal platelets. CMP with potassium 3.3. Replaced orally. Otherwise unremarkable. No significant signs of dehydration. Anemia labs were added on. Appears to have component of iron deficiency. % iron saturation low. Ferritin today 25. Discussed laboratory findings with his project structural engineer, Dr. Nelson, advised she has referred patient to hematology for further evaluation of anemia and to receive iron transfusions. Recommended that patient continue with this referral. Discussed this with patient. Advised no indication for transfusion at this time. She is in agreement with plan. Feels comfortable going home. Discussed strict return precautions. Discharged in stable condition. Medical Records Attestation: I reviewed the patient's medical records. Lab Data Attestation: I reviewed the patient's lab results. 02/18/25 09:14 02/18/25 09:14 Labs: Lab Results 02/18/25 Range/Units 09:14 WBC 7.2 (4.5-10.0) K/mm3 RBC 4.36 (4.2-5.4) M/mm3 Hgb 9.3 L D (12.0-15.0) g/dL Hct 31.8 L (37.0-47.0) % MCV 72.9 L (80-100) fl MCH 21.3 L (26-34) pg MCHC 29.2 L (32-36) g/dl RDW 28.5 H (11.5-14.5) % Plt Count 329 (150-375) k/mm3 MPV 8.9 (7.4-10.4) fl Immature Gran % (Auto) 0.1 (0-0.5) % Neut % (Auto) 59.4 (45.5-73.1) % Lymph % (Auto) 33.1 (18.3-44.2) % Perkins % (Auto) 6.2 (2.6-8.5) % Eos % (Auto) 0.6 (0-4.4) % Baso % (Auto) 0.6 (0.2-1.2) % Lymph # (Auto) 2.39 (0.9-3.2) K/mm3 Perkins # (Auto) 0.5 (0.1-0.6) K/mm3 Eos # (Auto) 0.0 (0-0.3) K/mm3 Baso # (Auto) 0.0 (0.0-0.1) K/mm3 Abs Immat Gran (auto) 0.01 (0.00-0.031) K/mm3 Absolute Neuts (auto) 4.3 (1.3-6.7) K/mm3 Absolute Nucleated RBC 0.000 (0.0-0.012) K/mm3 Band Neutrophils % Not Reportable Nucleated RBC % 0.0 (0.0-0.2) % Platelet Estimate Adequate (Adequate) Hypochromasia 2+ Anisocytosis 2+ Target Cells 1+ Tear Drop Cells 1+ Ovalocytes 2+ Acanthocytes (Spur) 1+ Schistocytes 1+ Absolute Retic 0.03 (0.02-0.10) 10^6/uL Percent Retic 0.80 (0.7-4.3) % Immature Retic Fraction 18.4 H (3.0-15.9) % Retic Hgb Content 24.2 L (28.2-36.6) pg PT 13.6 (11.1-14.7) Seconds INR 1.0 APTT 26.8 (22.3-36.8) Seconds Sodium 139 (137-145) mmol/L Potassium 3.3 L (3.4-5.0) mmol/L Chloride 107 (98-107) mmol/L Carbon Dioxide 23 (22-30) mmol/L Anion Gap 9 (4-12) mmol/L BUN 7 (7-17) mg/dL Creatinine 0.64 L (0.7-1.0) mg/dL Estim Creat Clear Calc 130 ml/min Estimated GFR > 60 (59 - ) Glucose 92 (65-110) mg/dL Calcium 9.2 (8.4-10.2) mg/dL Iron 31 L (37-170) ug/dL TIBC 374 (261-462) ug/dL % Saturation 8 L (20-50) % Transferrin 253 (206-381) mg/dL Ferritin 25.50 (6.24-137) ng/mL Total Bilirubin 0.2 (0.2-1.3) mg/dL AST 18 (14-36) U/L ALT 12 (6-35) U/L Alkaline Phosphatase 59 (38-126) U/L Lactate Dehydrogenase 139 (120-246) U/L Total Protein 7.1 (6.3-8.2) g/dL Albumin 3.8 (3.5-5.1) g/dL TSH (Reflex) 1.110 (0.465-4.68) uIU/mL Blood Type AB Negative Antibody Screen Negative Discharge Plan Discharge Clinical Impression: Anemia Qualifiers: Anemia type: unspecified type Qualified Code(s): D64.9 - Anemia, unspecified Iron deficiency anemia Qualifiers: Iron deficiency anemia type: unspecified iron deficiency Qualified Code(s): D50.9 - Iron deficiency anemia, unspecified Patient Disposition: Home Condition: Stable Instructions: Antibiotic Form, Iron Rich Diet (ED), Anemia (ED) Additional Instructions: Recommend taking iron supplementation. You may use stool softener/MiraLax as needed to prevent constipation. It is recommended you follow-up closely with group art supervisor for further evaluation of anemia and possible iron transfusions. You will need to call office to make appointment. Return to the ED if you experience worsening or severe bleeding, rectal bleeding, dark black stools, abdominal pain, severe dizziness or lightheadedness, passing out, unable to keep down food or drink, or any other symptoms of concern. Patient Language: Luxembourger Prescriptions: No Action metformin 850 mg Tablet 1,700 mg PO BIDWMEAL Mounjaro 2.5 mg/0.5 mL pen injector 7.5 mg SUBCUT WEEKLY Rx Instructions: on Fridays ferrous sulfate 325 mg (65 mg iron) tablet 325 mg PO EVERY OTHER DAY 30 Days Qty: 15 0RF Follow-up/Referrals: Sg Haro MD [Physician] - (HEMATOLOGY) Ana Carcamo PA-C [Primary Care Provider] - Time of Disposition: 10:36
--- OUTSIDE RECORDS SUMMARY | 2025-02-18 09:17 | XMS_ITS | Encounter Summary ---
Author Organization [facility] Healthcare Address [address] [place] [address] Care Team Providers Care Speaker Wirer Name Role Phone Tess Nelson MD Primary Care Provider [phone] Encounter Details Date Type Department Care Team (Late st Contact Info) Description 01/14/2025 Telephone [facility] [address] [place] [address] Julisa Llanos, ANTONIA Social History Tobacco Use [...] Description 02/24/2025 12:00 PM CDT Hospital Encounter [facility] Operating Room [facility] [place] [id number] Tess Coffey MD [address] [id number] 02/24/2025 12:00 PM CDT - 02/24/2025 4:00 PM CDT Surgery [facility] Operating Room [facility] [place] [address] Tess Coffey MD [address] [address] [employer]!! Robotic Assisted Myomectomy with Chromopertubation Scheduled Procedures Name Priority Associated Diagnoses Date/Ti me MYOMECTOMY - ROBOTIC ASSISTED Fibroids, intramural 02/24/2025 12:00 PM CDT documented as of this encounter Visit Diagnoses Not on filedocumented in this encounter Care Teams Speaker Wirer Relationship Specialty [place] [address] [place] [address] PCP - General Internal Medicine 12/11/24 documented as of this encounter
--- OUTSIDE RECORDS SUMMARY | 2025-02-18 09:17 | XMS_ITS | Clinical Summary ---
Author Organization [facility] Address [address] [place] [address] Care Team Providers Care Check Examiner Name Role Phone Unavailable Primary Care Provider Unavailabl e Source Comments [facility],non-owned Affiliates and Associated Physician Practices is amultiple site organization consisting of ambulatory clinics and hospital sitesin [place], [place], [place] and [place]. This disclosure is being madepursuant to the Care Everywhere program and may not contain all information available regarding this patient. Last updated 18.[employer] Social History Tobacco Use Types Packs/Day Years [...] age to complete this topic Insurance [facility]
--- OUTSIDE RECORDS SUMMARY | 2025-02-18 09:17 | XMS_ITS | Clinical Summary ---
Author Organization [facility] Honorio guadarrama [facility] Address [address] [place] [address] Care Team Providers Care Clerk Manager Name Role Phone Unavailable Primary Care [...] Data STL ABSTRACTION Provider, Abstract 11/21/2024 Telephone [facility] Oncology and Hematology - [place] [address] [facility] [address] [place] [address] Sg Haro MD Labs not [...]
--- OUTSIDE RECORDS SUMMARY | 2025-02-18 09:17 | XMS_ITS | Clinical Summary ---
Author Organization [facility] Virtual Care Address [address] [place] [address] Phone Care Team Providers Care Watch Assembly Instructor Name Role Phone Tess Nelson MD Primary Care Provider [phone] Allergies No known active allergies Medications tirzepatide [...] Department Care Team Description 01/31/2025 Orders Only [facility] Reproductive Endocrinology [address] [phone] Tess Coffey MD Encounter for blood typing (Primary Dx) 01/30/2025 Orders Only [facility]ductive Endocrinology [address] [phone] Tess Coffey MD Iron deficiency (Primary Dx) 01/30/2025 Orders Only [facility] Endocrinology [address] [phone] Tess Coffey MD 01/30/2025 Orders Only [facility] Endocr[facility]ology [address] [place] [phone] Tess Coffey MD 01/30/2025 Orders Only [facility] Rep[facility]ductive Endocr[facility]ology [address] [place] [phone] Tess Coffey MD 01/16/2025 1:30 PM CDT Infusion [facility] [address] [place] [phone] Fibroids, intramural (Primary Dx); Iron deficiency anemia due to chronic blood loss 01/14/2025 Telephone [facility] [address] [phone] Julisa Llanos RN 01/09/2025 11:59 PM CDT Anesthesia Event [facility] Operating Room [address] [place] [phone] Sydney Marvin NP 01/09/2025 2:30 PM CDT Pre-Admission Testing [facility] Pre Anesthesia Testing [address] [place] [phone] Preop testing (Primary Dx) 01/09/2025 [facility] [address] [place] [phone] Herlinda Esposito MD 01/09/2025 [facility] [address] [place] [phone] Herlinda Esposito MD 01/09/2025 Orders Only [facility] [address] [place] [phone] Rosalee Mccord RN 01/09/2025 Orders Only [facility] [address] [place], [place] [address] [address] [phone] Rosalee Mccord, ANTONIA 01/08/2025 Orders Only [facility] Reproductive Endocrinology [address] [place] [phone] Tess Coffey MD 01/08/2025 Orders Only [facility] Rep[facility]ductive Endocr[facility]ology [address] [place] [phone] Fanta Cantrell RN 01/08/2025 Telephone [facility] Rep[facility]ductive Endocr[facility]ology [address] [place] [phone] Fanta Cantrell, RN PA for Iron Infusion and IV Dextran 01/07/2025 Orders Only [facility] Reproductive Endocrinology [address] [place] [phone] Tess Coffey MD Iron deficiency anemia, unspecified iron deficiency anemia type (Primary Dx) 01/07/2025 Orders Only [facility] Rep[facility]ductive Endocr[facility]ology [address] [place] [phone] Tess Coffey MD 01/07/2025 Orders Only [facility] Rep[facility]ductive Endocr[facility]ology [address] [place] [phone] Herlinda Esposito MD Intramural and submucous leiomyoma of uterus (Primary Dx); Fibroids, intramural; Iron deficiency anemia due to chronic blood loss 01/07/2025 Results Follow-Up [facility] Reproductive Endocrinology [address] [place] [phone] Tess Coffey MD Type and screen, CBC with auto differential, Differential, auto 01/07/2025 Telephone [facility] Pre Anesthesia Testing [address] [place] [address] Luz Maria Moore 01/06/2025 2:40 PM CDT Office Visit [facility] Reproductive Endocrinology [address] [place] [phone] Tess Coffey MD Fibroids, intramural (Primary Dx) 01/06/2025 2:30 PM CDT Clinical Support [facility] Reproductive Endocrinology Lab [address] [place] [phone] Encounter for blood typing (Primary Dx) 01/06/2025 1:24 PM CDT - 01/06/2025 11:59 PM CDT Hospital Encounter [facility] [address] [place] [phone] Encounter for blood typing Discharge Disposition: Discharge to home or self care 01/06/2025 Telephone [facility] Pre Anesthesia Testing [address] [place] [phone] Luz Maria Moore 01/02/2025 1:20 PM CDT Telemedicine [facility] Reproductive Endocrinology [address] [place] [phone] Tess Coffey MD Intramural and submucous leiomyoma of uterus (Primary Dx) 12/25/2024 Telephone [facility] Virtual Care [address] [place] [phone] Patsy Ponce MRI test results 12/24/2024 Patient Self-Triage [facility] [address] [place] [address] Virgilt, Generic Provider 12/23/2024 7:13 PM CDT - 12/23/2024 11:59 PM CDT Hospital Encounter [facility] [address] [place] [phone] Fibroids Discharge Disposition: Discharge to home or self care 12/11/2024 Telephone [facility] Reproductive Endocrinology [address] [place] [phone] Estefanía Haskins/pauline to schedule surgery consult 12/10/2024 Orders Only [facility] Reproductive Endocrinology [address] [place] [phone] Tess Coffey MD Fibroids (Primary Dx) [...] Description 02/24/2025 12:00 PM CDT Hospital Encounter [facility] Operating Room [facility] [place] [address] Tess Coffey MD [address] [phone] 02/24/2025 12:00 PM CDT - 02/24/2025 4:00 PM CDT Surgery [facility] Operating Room [facility] [place] [phone] Tess Coffey MD [address] [address] Cell [employer]!! Robotic Assisted Myomectomy [...] LAB BLOOD ORDERABLES Final Result [facility] [address] [facility] [place] [address] * (ABNORMAL) Iron profile w/ IBC (01/30/2025 9:49 AM CDT) [facility] Iron 26(L) 40 - 190 mcg/dL [facility] TIBC 384 250 - 450 mcg/dL (calc) [facility] Iron saturation 7(L) 16 - 45 % (calc) [facility] Blood 01/30/2025 9:49 AM CDT 01/30/2025 9:50 AM CDT Tess Coffey MD LAB BLOOD ORDERABLES Final Result Performing Organization Address [facility] Co de Phone Number [facility] [address] [facility] [place] [address] * (ABNORMAL) Iron profile w/ IBC (01/10/2025 7:11 AM CDT) [facility] Iron 11(L) 40 - 190 mcg/dL [facility] TIBC 466(H) 250 - 450 mcg/dL (calc) [facility] Iron saturation 2(L) 16 - 45 % (calc) [facility] Blood 01/10/2025 7:11 AM CDT 01/10/2025 7:11 AM CDT Tess Coffey MD LAB BLOOD ORDERABLES Final Result Performing Organization Address City/[facility]/ZIP Co de Phone Number [facility] [address] [place] [address] * eGFR (01/09/2025 4:39 PM CDT) [facility] eGFR >90 >=60 mL/min/1. 73 m2 Comment: [...] 01/09/2025 4:39 PM CDT us Sydney Marvin [employer] LAB BLOOD ORDERABLES Final Result [facility] [address] Department [place] [address] * Basic metabolic panel (01/09/2025 4:39 PM CDT) Sodium 140 135 - 145 mmol/L Potassium, pl 4.2 3.3 - 4.9 mmol/L [facility] Chloride 106 97 - 110 mmol/L [facility] CO2 22 22 - 32 mmol/L [facility] Anion gap 12 2 - 15 mmol/L [facility] BUN 9 6 - 25 mg/dL [facility] Creatinine 0.62 0.60 - 1.10 mg/dL [facility] Glucose 111 70 - 199 mg/dL [facility] Comment: Interpretive Data Fasting glucose >/= [...] 2022. Calcium 9.3 8.5 - 10.3 mg/dL [facility] Blood 01/09/2025 4:39 PM CDT 01/09/2025 4:39 PM CDT Sydney Marvin NP LAB BLOOD ORDERABLES Final Result Performing Organization Address [facility] Co de Phone Number [facility] [address] Department [place] [address] * ECG 12 lead (01/09/2025 3:40 PM CDT) 01/09/2025 3:40 PM CDT Narrative [facility] - 01/09/2025 7:54 PM CDT Vent Rate: 92 bpm RR Interval: 650 msec NE Interval: 145 msec QRS Duration: 83 msec QT Interval: 332 msec QTC Interval: 382 msec P-R-T Williams: -2 - 46 - 10 degrees IMPRESSION: SINUS RHYTHM NORMAL ECG Electronically Signed By: Guilherme Price [facility] Card Sydney Marvin [employer] ECG ORDERABLES Germania l Result Performing Organization Address [facility] de Phone Number [facility] Variable [facility] * (ABNORMAL) Blood smear review (01/09/2025 3:29 PM CDT) RBC morphology Present(A) Hypochromasia 3-7/HPF(A) [facility] Anisocytosis Slight(A) [facility] Poikilocytosis Slight(A) [facility] Microcytes 3-7/HPF(A) [facility] Elliptocytes 3-7/HPF(A) [facility] Platelet estimate Adequate [facility] Morphology scrn See Comment [facility] Comment:PLT: Automated count confirmed by smear review Platelet morphology normal Blood 01/09/2025 3:29 PM CDT 01/09/2025 3:29 PM CDT Sydney [place] [employer] LAB BLOOD ORDERABLES Final Result [facility] [address] Department [place] [address] * Differential, auto (01/09/2025 3:29 PM CDT) Neutrophil abs 6.30 1.50 - 6.50 K/cumm Imm gran abs 0.02 0.00 - 0.10 K/cumm [facility] Lymphocyte abs 1.72 0.80 - 3.30 K/cumm [facility] Monocyte abs 0.56 0.20 - 0.80 K/cumm [facility] Eosinophil abs 0.09 0.00 - 0.50 K/cumm [facility] Basophil abs 0.05 0.00 - 0.10 K/cumm [facility] Neutrophil pct 72.1 % [facility] Comment: Interpretive Data Percent cell count reference ranges are not reported, since discordance with absolute values may lead to misinterpretation of CBC data. Current Interpretive Data was last revised on 2017. Imm gran pct 0.2 % [facility] Comment: Interpretive Data Percent cell count reference ranges are not reported, since discordance with absolute values may lead to misinterpretation of CBC data. Current Interpretive Data was last revised on 2017. Lymphocyte pct 19.7 % [facility] Comment: Interpretive Data Percent cell count reference ranges are not reported, since discordance with absolute values may lead to misinterpretation of CBC data. Current Interpretive Data was last revised on 2017. Monocyte pct 6.4 % [facility] Comment: Interpretive Data Percent cell count reference ranges are not reported, since discordance with absolute values may lead to misinterpretation of CBC data. Current Interpretive Data was last revised on 2017. Eosinophil pct 1.0 % [facility] Comment: Interpretive Data Percent cell count reference ranges are not reported, since discordance with absolute values may lead to misinterpretation of CBC data. Current Interpretive Data was last revised on 2017. Basophil pct 0.6 % [facility] Comment: Interpretive Data Percent cell count reference ranges are not reported, since discordance with absolute values may lead to misinterpretation of CBC data. Current Interpretive Data was last revised on 2017. Blood 01/09/2025 3:29 PM CDT 01/09/2025 3:29 PM CDT Sydney Marvin [employer] LAB BLOOD ORDERABLES Final Result Performing Organization Address [facility]/ZIP Co de Phone Number [facility] [address] [facility] [place] [address] * (ABNORMAL) CBC with auto differential (01/09/2025 3:29 PM CDT) WBC 8.74 3.80 - 9.90 K/cumm Hgb 7.0(L) 11.9 - 15.5 g/dL [facility] Hct 26.0(L) 35.6 - 45.5 % [facility] Plt 451(H) 150 - 400 K/cumm [facility] MPV 8.9(L) 9.1 - 12.3 fL [facility] RBC 4.19 3.90 - 5.20 M/cumm [facility] MCV 62.1(L) 81.3 - 96.4 fL [facility] MCH 16.7(L) 27.1 - 33.3 pg [facility] MCHC 26.9(L) 32.3 - 35.7 g/dL [facility] RDW CV 24.7(H) 11.1 - 14.9 % [facility] RDW SD 53.1(H) 35.7 - 48.1 fL [facility] NRBC abs 0.00 0.00 - 0.01 K/cumm [facility] Blood 01/09/2025 3:29 PM CDT 01/09/2025 3:29 PM CDT Sydney Marvin [employer] LAB BLOOD ORDERABLES Final Result Performing Organization Address City/[facility]/ZIP Co de Phone Number [facility] [address] [place] [address] * Hemoglobin A1c (01/09/2025 3:29 PM CDT) [facility] Hgb A1C 5.1 4.0 - 5.6 % Estimated Average Glucose 100 mg/dL [facility] Comment: The ADA recommends reporting an estimated Average Glucose (eAG) with all Hemoglobin A1c results using the equation derived from a study of 507 normal and diabetic adults. Minority populations were underrepresented and children were not included. (Diabetes Care 31:9014-9542, 2008). The eAG is not equivalent to a fasting glucose. Blood 01/09/2025 3:29 PM CDT 01/09/2025 3:29 PM CDT Sydney Marvin NP LAB BLOOD ORDERABLES Final Result Performing Organization Address [facility] Co de Phone Number [facility] [address] [place] [address] * Type and screen (01/09/2025 3:28 PM CDT) [facility] ABO Rh AB Negative Ashley, indirect Negative [facility] Blood 01/09/2025 3:28 PM CDT 01/09/2025 3:34 PM CDT Narrative [facility] - 01/09/2025 4:15 PM CDT Is this test being ordered in advance for a procedure?->Yes Expected date of procedure:->01/20/25 Has the patient been transfused in the past 3 months?->No Has the patient been in the past 3 months?->No Sydney Marvin NP LAB BLOOD BANK TEST ORDERABLES Final Result Performing Organization Address City/[facility]/ZIP Co de Phone Number [facility] [address] [facility] [place] [address] * Type and screen (01/06/2025 2:58 PM CDT) Pathologist [facility] ABO Rh AB Negative Ashley, indirect Negative [facility] Blood 01/06/2025 2:58 PM CDT 01/06/2025 8:26 PM CDT Narrative [facility] - 01/06/2025 9:43 PM CDT Has the patient had Daratumumab or Isatuximab in the past 6 months?->Unknown Tess Coffey MD LAB BLOOD BANK TEST ORDERA BLES Final Result [facility] Department [place] [address] * Differential, auto (01/06/2025 2:57 PM CDT) Pathologist [facility] Neutrophil abs 5.19 1.50 - 6.50 K/cumm Imm gran abs 0.03 0.00 - 0.10 K/cumm [facility] Lymphocyte abs 2.12 0.80 - 3.30 K/cumm [facility] Monocyte abs 0.62 0.20 - 0.80 K/cumm [facility] Eosinophil abs 0.13 0.00 - 0.50 K/cumm [facility] Basophil abs 0.05 0.00 - 0.10 K/cumm [facility] Neutrophil pct 63.8 % [facility] Comment: Interpretive Data Percent cell count reference ranges are not reported, since discordance with absolute values may lead to misinterpretation of CBC data. Current Interpretive Data was last revised on 2017. Imm gran pct 0.4 % [facility] Comment: Interpretive Data Percent cell count reference ranges are not reported, since discordance with absolute values may lead to misinterpretation of CBC data. Current Interpretive Data was last revised on 2017. Lymphocyte pct 26.0 % [facility] Comment: Interpretive Data Percent cell count reference ranges are not reported, since discordance with absolute values may lead to misinterpretation of CBC data. Current Interpretive Data was last revised on 2017. Monocyte pct 7.6 % [facility] Comment: Interpretive Data Percent cell count reference ranges are not reported, since discordance with absolute values may lead to misinterpretation of CBC data. Current Interpretive Data was last revised on 2017. Eosinophil pct 1.6 % [facility] Comment: Interpretive Data Percent cell count reference ranges are not reported, since discordance with absolute values may lead to misinterpretation of CBC data. Current Interpretive Data was last revised on 2017. Basophil pct 0.6 % [facility] Comment: Interpretive Data Percent cell count reference ranges are not reported, since discordance with absolute values may lead to misinterpretation of CBC data. Current Interpretive Data was last revised on 2017. Blood 01/06/2025 2:57 PM CDT 01/06/2025 5:32 PM CDT us Tess Coffey MD LAB BLOOD ORDERABLES Final Result [facility] Department [place] [address] * (ABNORMAL) CBC with auto differential (01/06/2025 2:57 PM CDT) WBC 8.14 3.80 - 9.90 K/cumm Hgb 7.0(L) 11.9 - 15.5 g/dL [facility] Hct 25.4(L) 35.6 - 45.5 % [facility] Plt 524(H) 150 - 400 K/cumm [facility] MPV 9.0(L) 9.1 - 12.3 fL [facility] RBC 4.18 3.90 - 5.20 M/cumm [facility] MCV 60.8(L) 81.3 - 96.4 fL [facility] MCH 16.7(L) 27.1 - 33.3 pg [facility] MCHC 27.6(L) 32.3 - 35.7 g/dL [facility] RDW CV 24.2(H) 11.1 - 14.9 % [facility] RDW SD 50.5(H) 35.7 - 48.1 fL [facility] NRBC abs 0.00 0.00 - 0.01 K/cumm [facility] Blood 01/06/2025 2:5 7 PM CDT 01/06/2025 5:32 PM CDT us Tess Coffey MD LAB BLOOD ORDERABLES Final Result [facility] [place] [address] * MRI Pelvis W WO Contrast (12/23/2024 [...] 3 Months Insurance CIG[employer] CIG[employer] Care Teams Watch Assembly Instructor Relationship Specialty [place] [address] [place] [address] PCP - General Internal Medicine 12/11/24
--- OUTSIDE RECORDS SUMMARY | 2025-02-18 09:17 | XMS_ITS | Referral Summary ---
Author Organization [facility] Virtual Care Address [address] [place] [address] Phone Care Team Providers Care Pharmaceutical Detailer Name Role Phone Tess Nelson MD Primary Care Provider [phone] Encounters Date Type Department Care Team Description 01/31/[address] [facility] Reproductive Endocrinology [address] [facility] ([place], [place]) [address] [place] [phone] Tess Coffey MD Encounter for blood typing (Primary Dx) 01/30/[address] [facility] Reproductive Endocrinology [address] [phone] Tess Coffey MD Iron deficiency (Primary Dx) 01/30/[address] [facility] Reproductive Endocr[facility]ology [address] [phone] Tess Coffey MD 01/30/[address] [facility] Reproductive Endocrinology [address] [phone] Tess Coffey MD 01/30/[address] [facility] Reproductive Endocrinology [address] [phone] Tess Coffey MD 01/09/2025 11:59 PM CDT Anesthesia Event [facility] Operating Room [address] [place] [address] Sydney Marvin NP 01/16/2025 1:30 PM CDT Infusion [facility] [address] [facility] Advanced [facility] 7th [place] [address] Fibroids, intramural (Primary Dx); Iron deficiency anemia due to chronic blood loss 01/14/2025 Telephone [facility] Special[facility]fusion [facility] [address] [facility] 7[address] [place] [address] Julisa Llanos RN 01/09/[address] [facility] Reproductive Endocr[facility]ology [address] [phone] Herlinda Esposito MD 01/09/[address] [facility] Rep[facility]ductive Endocr[facility]ology [address] [phone] Herlinda Esposito MD 01/09/2025 Orders Only [facility] Outpatient Infusion Center [address] [place] [phone] Rosalee Mccord RN 01/09/2025 Orders Only [facility] [address] [place] [phone] Rosalee Mccord RN 01/09/2025 2:30 PM CDT Pre-Admission Testing [facility] Pre Anesthesia Testing [address] [place] [address] Preop testing (Primary Dx) 01/08/[address] [facility] Reproductive Endocrinology [address] [phone] Tess Coffey MD 01/08/[address] [facility] Reproductive Endocrinology [address] [phone] Fanta Cantrell, ANTONIA 01/08/[address] [facility] Reproductive Endocr[facility]ology [address] [place] [phone] Fanta Cantrell, RN PA for Iron Infusion and IV Dextran 01/07/[address] [facility] Rep[facility] Endocr[facility]ology [address] [phone] Tess Coffey MD Iron deficiency anemia, unspecified iron deficiency anemia type (Primary Dx) 01/07/[address] [facility] Rep[facility] Endocr[facility]ology [address] [place] [phone] Tess Coffey MD 01/07/[address] [facility]ology [address] [place] [phone] Herlinda Esposito MD Intramural and submucous leiomyoma of uterus (Primary Dx); Fibroids, intramural; Iron deficiency anemia due to chronic blood loss 01/07/2025 Results Follow-Up [facility] Reproductive Endocrinology [address] [place] [phone] Tess Coffey MD Type and screen, CBC with auto differential, Differential, auto 01/07/2025 Telephone [facility] Pre Anesthesia Testing [address] [place] [phone] Luz Maria Moore 01/06/2025 Telephone [facility] Pre Anesthesia Testing [address] [place] [phone] Luz Maria Moore 01/06/2025 2:30 PM CDT Clinical Support [facility] Reproductive Endocrinology Lab [address] [place] [phone] Encounter for blood typing (Primary Dx) 01/06/2025 2:40 PM CDT Office Visit [facility] Rep[facility]ductive Endocr[facility]ology [address] [place] [phone] Tess Coffey MD Fibroids, intramural (Primary Dx) 01/06/2025 1:24 PM CDT - 01/06/2025 11:59 PM CDT Hospital Encounter [address] [phone] Encounter for blood typing Discharge Disposition: Discharge to home or self care 01/02/2025 1:[address] [facility] Reproductive Endocr[facility]ology [address] [place] [phone] Tess Coffey MD Intramural and submucous leiomyoma of uterus (Primary Dx) 12/25/2024 Telephone [facility] Virtual Care [address] [place] [address] Patsy Ponce MRI test results 12/24/2024 Patient Self-Triage [facility] [address] [place] [address] Mychart, Generic Provider 12/23/2024 7:13 PM CDT - 12/23/2024 11:59 PM CDT Hospital Encounter [facility] [address] [place] [phone] Fibroids Discharge Disposition: Discharge to home or self care 12/11/[address] [facility] Reproductive Endocrinology [address] [phone] Estefanía Haskins/looking to schedule surgery consult 12/10/[address] [facility] Reproductive Endocr[facility]ology [address] [facility] ([place], [place]) [address] [place] [phone] Tess Coffey MD Fibroids (Primary Dx) [...] 02/24/2025 12:00 PM CDT Hospital Encounter [facility] Operating Room [address] [place] [address] Tess Coffey MD [address] [facility] [address] [place] [address] 02/24/2025 12:00 PM CDT - 02/24/2025 4:00 PM CDT Surgery [facility] Operating Room [address] [facility] [place] [address] Tess Coffey MD [address] [facility] [address] [place], [place] [phone] Cell Saver!! Robotic Assisted Myomectomy with Chromopertubation [...] BLOOD ORDERABLES Final Result Performing Organization Address [facility] Co de Phone Number [facility] [address] [place] [address] * (ABNORMAL) Iron profile w/ IBC (01/30/2025 9:49 AM CDT) Iron 26(L) 40 - 190 mcg/dL [facility] TIBC 384 250 - 450 mcg/dL (calc) [facility] Iron saturation 7(L) 16 - 45 % (calc) [facility] Blood 01/30/2025 9:49 AM CDT 01/30/2025 9:50 AM CDT us Tess Coffey MD LAB BLOOD ORDERABLES Final Result Performing Organization Address City/[facility] Co de Phone Number [facility] [address] [place] [address] * (ABNORMAL) Iron profile w/ IBC (01/10/2025 7:11 AM CDT) Iron 11(L) 40 - 190 mcg/dL [facility] TIBC 466(H) 250 - 450 mcg/dL (calc) [facility] Iron saturation 2(L) 16 - 45 % (calc) [facility] Blood 01/10/2025 7:11 AM CDT 01/10/2025 7:11 AM CDT us Tess Coffey MD LAB BLOOD ORDERABLES Final Result [facility] [address] [address] [phone] * eGFR (01/09/2025 4:39 PM CDT) eGFR [...] NP LAB BLOOD ORDERABLES Final Result [facility] [address] Department [place] [address] * Basic metabolic panel (01/09/2025 4:39 PM CDT) Sodium 140 135 - 145 mmol/L Potassium, pl 4.2 3.3 - 4.9 mmol/L [facility] Chloride 106 97 - 110 mmol/L [facility] CO2 22 22 - 32 mmol/L [facility] Anion gap 12 2 - 15 mmol/L [facility] BUN 9 6 - 25 mg/dL [facility] Creatinine 0.62 0.60 - 1.10 mg/dL [facility] Glucose 111 70 - 199 mg/dL [facility] Comment: Interpretive Data Fasting glucose >/= [...] 2022. Calcium 9.3 8.5 - 10.3 mg/dL [facility] Blood 01/09/2025 4:39 PM CDT 01/09/2025 4:39 PM CDT us Sydney Marvin TUBE MACHINE OPERATOR LAB BLOOD ORDERABLES Final Result [facility] [address] Department [place] [address] * ECG 12 lead (01/09/2025 3:40 PM CDT) 01/09/2025 3:40 PM CDT Narrative [facility] - 01/09/2025 7:54 PM CDT Vent Rate: 92 bpm RR Interval: 650 msec MD Interval: 145 msec QRS Duration: 83 msec QT Interval: 332 msec QTC Interval: 382 msec P-R-T Lena: -2 - 46 - 10 degrees IMPRESSION: SINUS RHYTHM NORMAL ECG Electronically Signed By: Guilherme Price [facility] Card Sydney Marvin TUBE MACHINE OPERATOR ECG ORDERABLES Germania l Result [facility] * (ABNORMAL) Blood smear review (01/09/2025 3:29 PM CDT) [facility] RBC morphology Present(A) Hypochromasia 3-7/HPF(A) [facility] Anisocytosis Slight(A) [facility] Poikilocytosis Slight(A) [facility] Microcytes 3-7/HPF(A) [facility] Elliptocytes 3-7/HPF(A) [facility] Platelet estimate Adequate [facility] Morphology scrn See Comment [facility] Comment:PLT: Automated count confirmed by smear review Platelet morphology normal Blood 01/09/2025 3:29 PM CDT 01/09/2025 3:29 PM CDT Sydney Marvin NP LAB BLOOD ORDERABLES Final Result Performing Organization Address City/[facility]/ZIP Co de Phone Number [facility] [address] Department [place] [address] * Differential, auto (01/09/2025 3:29 PM CDT) [facility] Neutrophil abs 6.30 1.50 - 6.50 K/cumm Imm gran abs 0.02 0.00 - 0.10 K/cumm [facility] Lymphocyte abs 1.72 0.80 - 3.30 K/cumm [facility] Monocyte abs 0.56 0.20 - 0.80 K/cumm [facility] Eosinophil abs 0.09 0.00 - 0.50 K/cumm [facility] Basophil abs 0.05 0.00 - 0.10 K/cumm [facility] Neutrophil pct 72.1 % [facility] Comment: Interpretive Data Percent cell count reference ranges are not reported, since discordance with absolute values may lead to misinterpretation of CBC data. Current Interpretive Data was last revised on 2017. Imm gran pct 0.2 % [facility] Comment: Interpretive Data Percent cell count reference ranges are not reported, since discordance with absolute values may lead to misinterpretation of CBC data. Current Interpretive Data was last revised on 2017. Lymphocyte pct 19.7 % [facility] Comment: Interpretive Data Percent cell count reference ranges are not reported, since discordance with absolute values may lead to misinterpretation of CBC data. Current Interpretive Data was last revised on 2017. Monocyte pct 6.4 % [facility] Comment: Interpretive Data Percent cell count reference ranges are not reported, since discordance with absolute values may lead to misinterpretation of CBC data. Current Interpretive Data was last revised on 2017. Eosinophil pct 1.0 % [facility] Comment: Interpretive Data Percent cell count reference ranges are not reported, since discordance with absolute values may lead to misinterpretation of CBC data. Current Interpretive Data was last revised on 2017. Basophil pct 0.6 % [facility] Comment: Interpretive Data Percent cell count reference ranges are not reported, since discordance with absolute values may lead to misinterpretation of CBC data. Current Interpretive Data was last revised on 2017. Blood 01/09/2025 3:29 PM CDT 01/09/2025 3:29 PM CDT Sydney Marvin TUBE MACHINE OPERATOR LAB BLOOD ORDERABLES Final Result [facility] [address] Department [place] [address] * (ABNORMAL) CBC with auto differential (01/09/2025 3:29 PM CDT) WBC 8.74 3.80 - 9.90 K/cumm Hgb 7.0(L) 11.9 - 15.5 g/dL [facility] Hct 26.0(L) 35.6 - 45.5 % [facility] Plt 451(H) 150 - 400 K/cumm [facility] MPV 8.9(L) 9.1 - 12.3 fL [facility] RBC 4.19 3.90 - 5.20 M/cumm [facility] MCV 62.1(L) 81.3 - 96.4 fL [facility] MCH 16.7(L) 27.1 - 33.3 pg [facility] MCHC 26.9(L) 32.3 - 35.7 g/dL [facility] RDW CV 24.7(H) 11.1 - 14.9 % [facility] RDW SD 53.1(H) 35.7 - 48.1 fL [facility] NRBC abs 0.00 0.00 - 0.01 K/cumm [facility] Blood 01/09/2025 3:29 PM CDT 01/09/2025 3:29 PM CDT Sydney Marvin NP LAB BLOOD ORDERABLES Final Result Performing Organization Address [facility] de Phone Number [facility] [address] [place] [address] * Hemoglobin A1c (01/09/2025 3:29 PM CDT) Pathologist [facility] Hgb A1C 5.1 4.0 - 5.6 % Estimated Average Glucose 100 mg/dL [facility] Comment: The ADA recommends reporting an estimated Average Glucose (eAG) with all Hemoglobin A1c results using the equation derived from a study of 507 normal and diabetic adults. Minority populations were underrepresented and children were not included. (Diabetes Care 31:8414-0581, 2008). The eAG is not equivalent to a fasting glucose. Blood 01/09/2025 3:29 PM CDT 01/09/2025 3:29 PM CDT Sydney Marvin NP LAB BLOOD ORDERABLES Final Result Performing Organization Address City/[facility]/ZIP Co de Phone Number [facility] [address] [facility] [place], [place] [id number] * Type and screen (01/09/2025 3:28 PM CDT) Pathologist [facility] ABO Rh AB Negative Ashley, indirect Negative [facility] Blood 01/09/2025 3:28 PM CDT 01/09/2025 3:34 PM CDT [facility]ative [facility] - 01/09/2025 4:15 PM CDT Is this test being ordered in advance for a procedure?->Yes Expected date of procedure:->01/20/25 Has the patient been transfused in the past 3 months?->No Has the patient been in the past 3 months?->No Sydney Marvin NP LAB BLOOD BANK TEST ORDERABLES Final Result [facility] [address] [place] [address] * Type and screen (01/06/2025 2:58 PM CDT) Pathologist [facility] ABO Rh AB Negative Ashley, indirect Negative [facility] Blood 01/06/2025 2:58 PM CDT 01/06/2025 8:26 PM CDT Narrative [facility] - 01/06/2025 9:43 PM CDT Has the patient had Daratumumab or Isatuximab in the past 6 months?->Unknown Tess Coffey MD LAB BLOOD BANK TEST ORDERA BLES Final Result [facility] Department [place] [address] * Differential, auto (01/06/2025 2:57 PM CDT) Neutrophil abs 5.19 1.50 - 6.50 K/cumm Imm gran abs 0.03 0.00 - 0.10 K/cumm [facility] Lymphocyte abs 2.12 0.80 - 3.30 K/cumm [facility] Monocyte abs 0.62 0.20 - 0.80 K/cumm [facility] Eosinophil abs 0.13 0.00 - 0.50 K/cumm [facility] Basophil abs 0.05 0.00 - 0.10 K/cumm [facility] Neutrophil pct 63.8 % [facility] Comment: Interpretive Data Percent cell count reference ranges are not reported, since discordance with absolute values may lead to misinterpretation of CBC data. Current Interpretive Data was last revised on 2017. Imm gran pct 0.4 % [facility] Comment: Interpretive Data Percent cell count reference ranges are not reported, since discordance with absolute values may lead to misinterpretation of CBC data. Current Interpretive Data was last revised on 2017. Lymphocyte pct 26.0 % [facility] Comment: Interpretive Data Percent cell count reference ranges are not reported, since discordance with absolute values may lead to misinterpretation of CBC data. Current Interpretive Data was last revised on 2017. Monocyte pct 7.6 % [facility] Comment: Interpretive Data Percent cell count reference ranges are not reported, since discordance with absolute values may lead to misinterpretation of CBC data. Current Interpretive Data was last revised on 2017. Eosinophil pct 1.6 % [facility] Comment: Interpretive Data Percent cell count reference ranges are not reported, since discordance with absolute values may lead to misinterpretation of CBC data. Current Interpretive Data was last revised on 2017. Basophil pct 0.6 % [facility] Comment: Interpretive Data Percent cell count reference ranges are not reported, since discordance with absolute values may lead to misinterpretation of CBC data. Current Interpretive Data was last revised on 2017. Blood 01/06/2025 2:57 PM CDT 01/06/2025 5:32 PM CDT us Tess Coffey MD LAB BLOOD ORDERABLES Final Result [facility] Department of Laboratories [place], [place] [id number] * (ABNORMAL) CBC with auto differential (01/06/2025 2:57 PM CDT) WBC 8.14 3.80 - 9.90 K/cumm Hgb 7.0(L) 11.9 - 15.5 g/dL [facility] Hct 25.4(L) 35.6 - 45.5 % [facility] Plt 524(H) 150 - 400 K/cumm [facility] MPV 9.0(L) 9.1 - 12.3 fL [facility] RBC 4.18 3.90 - 5.20 M/cumm [facility] MCV 60.8(L) 81.3 - 96.4 fL [facility] MCH 16.7(L) 27.1 - 33.3 pg [facility] MCHC 27.6(L) 32.3 - 35.7 g/dL [facility] RDW CV 24.2(H) 11.1 - 14.9 % [facility] RDW SD 50.5(H) 35.7 - 48.1 fL [facility] NRBC abs 0.00 0.00 - 0.01 K/cumm [facility] Blood 01/06/2025 2:57 PM CDT 01/06/2025 5:32 PM CDT us Tess Coffey MD LAB BLOOD ORDERABLES Final Result [facility] Department [place] [address] * MRI Pelvis W WO Contrast (12/23/2024 [...] R esult from Last 3 Months Insurance [facility] [employer] Care Teams Pharmaceutical Detailer Relationship Specialty [place] [address] [place] [address] PCP - General Internal Medicine 12/11/24
--- OUTSIDE RECORDS SUMMARY | 2025-02-18 09:17 | XMS_ITS | Encounter Summary ---
Author Organization [facility] Address [address] [place] [address] Phone Care Team Providers Care Yacht Rigger Name Role Phone Tess Nelson MD Primary Care Provider [phone] Encounter Details Date Type Department Care Team (Latest Contact Info) Description 01/07/2025 Results Follow-Up [facility] Reproductive Endocrinology [address] [phone] Tess Coffey MD [address] [address] Type and screen, CBC with [...] 02/24/2025 12:00 PM CDT Hospital Encounter [facility] Operating Room [address] [place] [phone] Tess Coffey MD [address] [phone] 02/24/2025 12:00 PM CDT - 02/24/2025 4:00 PM CDT Surgery [facility] Operating Room [address] [place] [phone] Tess Coffey MD [address] [phone] Cell Saver!! Robotic Assisted Myomectomy with Chromopertubation Scheduled Procedures Name Priority Associated Diagnoses Date/Ti me MYOMECTOMY - ROBOTIC ASSISTED Fibroids, intramural 02/24/2025 12:00 PM CDT documented as of this encounter Visit Diagnoses Not on filedocumented in this encounter Care Teams Yacht Rigger Relationship Specialty [place] [address] [place] [address] PCP - General Internal Medicine 12/11/24 documented as of this encounter
[2025-02-18 09:20] LABS: Hematocrit 31.8 % (37.0-47.0); Hemoglobin 9.3 g/dL (12.0-15.0); Immature Granulocyte Percent A 0.1 % (0-0.5); Lymphocytes Absolute Auto 2.39 K/mm3 (0.9-3.2); Mean Corpuscular HGB Conc 29.2 g/dl (32-36); Mean Corpuscular Hemoglobin 21.3 pg (26-34); Mean Corpuscular Volume 72.9 fl (80-100); Nucleated Red Blood Cells Absolute Auto 0.000 K/mm3 (0.0-0.012); Nucleated Red Blood Cells Perc 0.0 % (0.0-0.2); Platelet Count Result 329 k/mm3 (150-375); Red Blood Count 4.36 M/mm3 (4.2-5.4); White Blood Count 7.2 K/mm3 (4.5-10.0)
[2025-02-18 09:22] VITALS: RESP 15; O2SAT 100
[2025-02-18 09:32] LABS: Immature Reticulocyte Fraction 18.4 % (3.0-15.9); Reticulocyte Hemoglobin Conten 24.2 pg (28.2-36.6); Reticulocytes Absolute 0.03 10^6/uL (0.02-0.10)
[2025-02-18 09:33] LABS: Alanine Aminotransferase 12 U/L (6-35); Albumin Level 3.8 g/dL (3.5-5.1); Alkaline Phosphatase 59 U/L (38-126); Anion Gap 9 mmol/L (4-12); Aspartate Amino Transferase 18 U/L (14-36); Bilirubin,Total 0.2 mg/dL (0.2-1.3); Blood Urea Nitrogen 7 mg/dL (7-17); Calcium 9.2 mg/dL (8.4-10.2); Carbon Dioxide 23 mmol/L (22-30); Chloride 107 mmol/L (98-107); Estimated CRCL calculation 130 ml/min; Estimated Glomerular Filt Rate > 60; Glucose 92 mg/dL (65-110); Potassium 3.3 mmol/L (3.4-5.0); Sodium 139 mmol/L (137-145); Total Protein 7.1 g/dL (6.3-8.2)
[2025-02-18 09:40] LABS: INR 1.0; Prothrombin Time 13.6 Seconds (11.1-14.7)
[2025-02-18 09:41] LABS: Partial Thromboplastin Time 26.8 Seconds (22.3-36.8)
[2025-02-18 09:42] LABS: Acanthocytes 1+; Anisocytosis 2+; Hypochromasia 2+; Ovalocytes 2+; Schistocytes 1+; Target Cells 1+; Tear Drop Cells 1+
[2025-02-18] MEDS: SODIUM CHLORIDE 0.9% IV 1,000 ML 999 ML IV CONT (10:05)
[2025-02-18] MEDS: POTASSIUM CHLORIDE 20 MEQ ER TABLET PO (10:05)
[2025-02-18 10:30] LABS: Iron 31 ug/dL (37-170)
[2025-02-18 10:39] LABS: Percent Iron Saturation 8 % (20-50)
[2025-02-18 10:41] LABS: Transferrin 253 mg/dL (206-381)
[2025-02-18 11:05] LABS: Thyroid Stimulating Hormone Reflex 1.110 uIU/mL (0.465-4.68)
[2025-02-18 11:09] LABS: Ferritin 25.50 ng/mL (6.24-137)
== END 2025-02-18 12:05 | disposition home or self-care (01) ==
PROVIDERS: Emergency Provider Physician Assistant; PCP Physician Assistant Medical
DX: D64.9 Anemia, unspecified (principal); D50.9 Iron deficiency anemia, unspecified; I10 Essential (primary) hypertension; E55.9 Vitamin D deficiency, unspecified; E28.2 Polycystic ovarian syndrome; E11.9 Type 2 diabetes mellitus without complications; Z79.85 Long-term (current) use of injectable non-insulin antidiabetic drugs; Z79.84 Long term (current) use of oral hypoglycemic drugs
CPT/HCPCS: 36415; 80053; 82728; 83540; 83550; 83615; 84443; 84466; 85025; 85046; 85610; 85730; 86850; 86900; 86901; 96360; 99283; A9270; J7030